=== PATIENT | male | born 1990 | race Hispanic/Latino ===

== ENCOUNTER 2018-03-31 14:25 | Emergency (ER) | payer BC, SELFPAY ==
--- NOTE | 2018-03-31 17:04 | EDPHYS ---
Physician Documentation [facility] Name: Barry Mercedes Age: 27 yrs Sex: Male : 1990 Arrival Date: 03/31/2018 Time: 14:26 Bed 10 Private MD: ED Physician Gregorio Thayer HPI: 03/31 16:59 This 27 yrs old Male presents to ER via Ambulatory with complaints of Sore snw Throat, Fever. 16:59 The patient presents with sore throat. The patient describes throat pain as raw, snw scratchy. Onset: The symptoms/episode began/occurred suddenly, 2.5 day(s) ago, and became worse and became persistent. Modifying factors: The symptoms are alleviated by nothing, the symptoms are aggravated by swallowing, Patient's oral intake status: good. Associated signs and symptoms: Pertinent positives: cough, fever, flu-like symptoms, malaise, nausea. The patient has experienced a previous episode. The patient has not recently seen a physician. Pt states he is unable to get a Rx until day. Historical: - Allergies: 15:21 No Known Allergies; ph - Home Meds: 15:21 None [Active]; ph - PMHx: 15:21 None; ph - PSHx: 15:21 Tonsillectomy; ph - Immunization history:: Adult Immunizations not up to date. - Social history:: Smoking status: Patient uses tobacco products, denies chronic smoking, but will smoke occasionally. - Ebola Screening: : No symptoms or risks identified at this time. ROS: 16:58 Eyes: Negative for injury, pain, redness, and discharge. snw 16:58 Neck: Negative for injury, pain, and swelling, Cardiovascular: Negative for chest pain, palpitations, and edema, Respiratory: Negative for shortness of breath, wheezing, and pleuritic chest pain, + cough Abdomen/GI: Negative for abdominal pain, nausea, vomiting, diarrhea, and constipation, Back: Negative for injury and pain, : Negative for injury, bleeding, discharge, and swelling, MS/Extremity: Negative for injury and deformity, Skin: Negative for injury, rash, and discoloration, Neuro: Negative for headache, weakness, numbness, tingling, and seizure, Psych: Negative for depression, anxiety, suicide ideation, homicidal ideation, and hallucinations. 16:58 Constitutional: Positive for body aches, fever, malaise, poor PO intake. 16:58 ENT: Positive for sore throat. Exam: 16:57 Constitutional: This is a well developed, well nourished patient who is awake, alert, snw and in no acute distress. Head/Face: Normocephalic, atraumatic. Eyes: Pupils equal round and reactive to light, extra-ocular motions intact. Lids and lashes normal. Conjunctiva and sclera are non-icteric and not injected. Cornea within normal limits. Periorbital areas with no swelling, redness, or edema. Neck: Trachea midline, no thyromegaly or masses palpated, and no cervical lymphadenopathy. Supple, full range of motion without nuchal rigidity, or vertebral point tenderness. No Meningismus. Chest/axilla: Normal chest wall appearance and motion. Nontender with no deformity. No lesions are appreciated. Cardiovascular: Regular rate and rhythm with a normal S1 and S2. No gallops, murmurs, or rubs. Normal PMI, no JVD. No pulse deficits. Respiratory: Lungs have equal breath sounds bilaterally, clear to auscultation and percussion. No rales, rhonchi or wheezes noted. No increased work of breathing, no retractions or nasal flaring. Abdomen/GI: Soft, non-tender, with normal bowel sounds. No distension or tympany. No guarding or rebound. No evidence of tenderness throughout. Back: No spinal tenderness. No costovertebral tenderness. Full range of motion. Skin: Warm, dry with normal turgor. Normal color with no rashes, no lesions, and no evidence of cellulitis. MS/ Extremity: Pulses equal, no cyanosis. Neurovascular intact. Full, normal range of motion. Neuro: Awake and alert, GCS 15, oriented to person, place, time, and situation. Cranial nerves II-XII grossly intact. Motor strength 5/5 in all extremities. Sensory grossly intact. Cerebellar exam normal. Normal gait. Psych: Awake, alert, with orientation to person, place and time. Behavior, mood, and affect are within normal limits. 16:57 ENT: External ear(s): are unremarkable, Ear canal(s): are normal, TM's: are normal, Nose: is normal, Mouth: is normal, Posterior pharynx: swelling, that is moderate, erythema, that is moderate, that is marked, Voice: is normal. Vital Signs: 15:21 BP 141 / 91; Pulse 80; Resp 18; Temp 98.5; Pulse Ox 96% on R/A; Weight 90.72 kg; Height ph 5 ft. 8 in. (172.72 cm); Pain 6/10; 16:32 BP 133 / 72; Pulse 83; Resp 18; Temp 97.5; Pulse Ox 95% on R/A; ph 17:38 BP 130 / 70; Pulse 80; Resp 16; Temp 98.6(TE); Pulse Ox 100% on R/A; dm5 17:53 BP 130 / 86; Pulse 79; Resp 18; Pulse Ox 99% on R/A; tl3 15:21 Body Mass Index 30.41 (90.72 kg, 172.72 cm) ph MDM: 16:46 Patient medically screened. snw 17:04 Data reviewed: vital signs, nurses notes. Data interpreted: Pulse oximetry: on room air snw is 95 %. Interpretation: acceptable. Counseling: I had a detailed discussion with the patient and/or guardian regarding: the historical points, exam findings, and any diagnostic results supporting the discharge/admit diagnosis, lab results, the need for outpatient follow up, to return to the emergency department if symptoms worsen or persist or if there are any questions or concerns that arise at home. Special discussion: Based on the history and exam findings, there is no indication for further emergent testing or inpatient evaluation. I discussed with the patient/guardian the need to see the primary care provider for further evaluation of the symptoms. 03/31 15:10 Order name: Strep; Complete Time: 16:29 snw 03/31 15:10 Order name: Flu; Complete Time: 16:29 snw Administered Medications: 17:25 Drug: Bicillin L-A 2.4 million units {Note: 1/2 in left gluteus 1/2 in right gluteus.} dm5 Route: IM; Site: left gluteus; 17:43 Follow up: Response: No adverse reaction tl3 17:25 Drug: Decadron - Dexamethasone 10 mg {Note: given PO per provider instructions.} Route: dm5 IVP; Site: Other; 17:44 Follow up: Response: No adverse reaction tl3 17:52 Drug: Motrin 800 mg Route: PO; tl3 17:52 Follow up: Response: Medication administered at discharge. tl3 Disposition: 03/31/18 17:03 Discharged to Home. Impression: Streptococcal pharyngitis, Fever, unspecified. - Condition is Stable. - Discharge Instructions: Fever, Adult, Sore Throat, Strep Throat, Rehydration, Adult. - Work release form, Medication Reconciliation Form, Thank You Letter, Antibiotic Education, Prescription Opioid Use form. - Follow up: Private Physician; When: 2 - 3 days; Reason: Recheck today's complaints, Continuance of care, Re-evaluation by your physician. Follow up: Emergency Department; When: As needed; Reason: Worsening of condition. Addendum: 04/07/2018 11:47 Co-signature as Attending Physician, Gregorio Thayer MD. g s Signatures: Dispatcher [employer] EDMS Jennifer Morocho RN RN dm5 Sophy Salcedo, VALVE REPAIRER RECLAMATION-C VALVE REPAIRER RECLAMATION-Csnw Tiana Chi, RN RN Gregorio Thayer MD MD Deyanira Rivas RN RN tl3 Corrections: (The following items were deleted from the chart) 03/31 17:55 17:03 03/31/2018 17:03 Discharged to Home. Impression: Streptococcal pharyngitis; tl3 Fever, unspecified. Condition is Stable. Forms are Medication Reconciliation Form, Thank You Letter, Antibiotic Education, Prescription Opioid Use. Follow up: Private Physician; When: 2 - 3 days; Reason: Recheck today's complaints, Continuance of care, Re-evaluation by your physician. Follow up: Emergency Department; When: As needed; Reason: Worsening of condition. snw
--- NOTE | 2018-03-31 17:04 | ER ---
Nurse's Notes [facility] Name: Barry Mercedes Age: 27 yrs Sex: Male : 1990 Arrival Date: 03/31/2018 Time: 14:26 Bed 10 Private MD: Diagnosis: Streptococcal pharyngitis;Fever, unspecified Presentation: 03/31 15:19 Presenting complaint: Patient states: Fatigue, sore throat, and nausea x 3 days. ph Transition of care: patient was not received from another setting of care. Onset of symptoms was March 31, 2018. Risk Assessment: Do you want to hurt yourself or someone else? Patient reports no desire to harm self or others. Initial Sepsis Screen: Does the patient meet any 2 criteria?. Care prior to arrival: None. 15:19 Method Of Arrival: Ambulatory ph 15:19 Acuity: PETE 4 ph 17:55 Initial Sepsis Screen: Does the patient have a suspected source of infection? No. tl3 Patient's initial sepsis screen is negative. Historical: - Allergies: 15:21 No Known Allergies; ph - Home Meds: 15:21 None [Active]; ph - PMHx: 15:21 None; ph - PSHx: 15:21 Tonsillectomy; ph - Immunization history:: Adult Immunizations not up to date. - Social history:: Smoking status: Patient uses tobacco products, denies chronic smoking, but will smoke occasionally. - Ebola Screening: : No symptoms or risks identified at this time. Screenin:54 Abuse screen: Denies threats or abuse. Nutritional screening: No deficits noted. tl3 Tuberculosis screening: No symptoms or risk factors identified. Fall Risk None identified. Assessment: 16:50 General: Appears in no apparent distress. uncomfortable, Behavior is calm, cooperative. dm5 Pain: Complains of pain in throat Pain currently is 8 out of 10 on a pain scale. Quality of pain is described as sharp, stinging. Neuro: Level of Consciousness is awake, alert, obeys commands, Oriented to person, place, time. Respiratory: Airway is patent Respiratory effort is even, unlabored, relaxed, Breath sounds are clear bilaterally. EENT: Throat is reddened. Derm: Skin is pink, warm \T\ dry. Vital Signs: 15:21 BP 141 / 91; Pulse 80; Resp 18; Temp 98.5; Pulse Ox 96% on R/A; Weight 90.72 kg; Height ph 5 ft. 8 in. (172.72 cm); Pain 6/10; 16:32 BP 133 / 72; Pulse 83; Resp 18; Temp 97.5; Pulse Ox 95% on R/A; ph 17:38 BP 130 / 70; Pulse 80; Resp 16; Temp 98.6(TE); Pulse Ox 100% on R/A; dm5 17:53 BP 130 / 86; Pulse 79; Resp 18; Pulse Ox 99% on R/A; tl3 15:21 Body Mass Index 30.41 (90.72 kg, 172.72 cm) ph ED Course: 14:26 Patient arrived in ED. as 15:21 Triage completed. ph 15:22 Arm band placed on Patient placed in waiting room, Patient notified of wait time. Labs ph ordered per protocol. 15:30 Flu and/or RSV swab sent to lab. Strep swab sent to lab. dh3 16:29 [facility] snw 16:30 Gregorio Thayer MD is Attending Physician. snw 17:54 No provider procedures requiring assistance completed. tl3 17:54 Patient did not have IV access during this emergency room visit. tl3 17:55 Patient has correct armband on for positive identification. tl3 Administered Medications: 17:25 Drug: Bicillin L-A 2.4 million units {Note: 1/2 in left gluteus 1/2 in right gluteus.} dm5 Route: IM; Site: left gluteus; 17:43 Follow up: Response: No adverse reaction tl3 17:25 Drug: Decadron - Dexamethasone 10 mg {Note: given PO per provider instructions.} Route: dm5 IVP; Site: Other; 17:44 Follow up: Response: No adverse reaction tl3 17:52 Drug: Motrin 800 mg Route: PO; tl3 17:52 Follow up: Response: Medication administered at discharge. tl3 Outcome: 17:03 Discharge ordered by . snw 17:53 Discharged to home ambulatory. tl3 17:53 Condition: stable 17:53 Discharge instructions given to patient, Instructed on discharge instructions, follow up and referral plans. medication usage, Demonstrated understanding of instructions, follow-up care, medications. 17:55 Patient left the ED. tl3 Signatures: Jennifer Morocho, JOSE RN dm5 Sophy Salcedo, MEDICAL PHYSICS TEACHER-C MEDICAL PHYSICS TEACHER-Csnw Melisa Florence Patricia, JOSE RN Monica Hardy 3 Deyanira Rivas RN RN tl3 Corrections: (The following items were deleted from the chart) 17:38 16:50 BP 130 / 70; Pulse 80bpm; Resp 16bpm; Pulse Ox 100% RA; Temp 98.6F Temporal; dm5 dm5
[2018-03-31] MEDS ORDERED: DEXAMETHASONE 10 MG/ML VIAL ONE (17:15)
[2018-03-31] MEDS ORDERED: PEN G BENZ LA 2.4 MU/4 ML SYRINGE IM ONE (17:16)
[2018-03-31] MEDS ORDERED: IBUPROFEN 400 MG TAB ONE (17:54)
[2018-03-31 19:22] VITALS: TEMP 98.6
[2018-03-31 19:23] VITALS: BP 130/86; O2SAT 99
== END 2018-03-31 17:55 | disposition home or self-care (01) ==
LOC: ER 14:25
DX: J02.0 Streptococcal pharyngitis (principal)
CPT/HCPCS: 87081; 87804; 96372; 96374; 99283; J0561; J1100

== ENCOUNTER 2018-07-14 13:31 | Emergency (ER) | payer SELFPAY ==
[2018-07-14] MEDS ORDERED: ACETAMINOPHEN 500 MG TAB ONE (14:12)
--- NOTE | 2018-07-14 14:58 | EDPHYS ---
Physician Documentation [facility] Name: Barry Mercedes Age: 28 yrs Sex: Male : 1990 Arrival Date: 07/14/2018 Time: 13:45 Bed Treatment Private MD: None, None ED Physician Ra Conn HPI: 07/14 14:54 This 28 yrs old Male presents to ER via Ambulatory with complaints of Fever, ma2 Rash. 14:54 Onset: The symptoms/episode began/occurred gradually, 3 day(s) ago. Associated signs ma2 and symptoms: Pertinent positives: cough, runny nose, sore throat, Pertinent negatives: altered mental status, backache, night sweats. Severity of symptoms: At their worst the symptoms were moderate in the emergency department the symptoms are unchanged. The patient has not experienced similar symptoms in the past. Historical: - Allergies: 13:57 No Known Allergies; aa5 - Home Meds: 13:57 None [Active]; aa5 - PMHx: 13:57 None; aa5 - PSHx: 13:57 Tonsillectomy; aa5 - Immunization history:: Flu vaccine is not up to date. - Social history:: Smoking status: Patient/guardian denies using tobacco, Patient/guardian denies using alcohol, street drugs, The patient lives with family. - Ebola Screening: : No symptoms or risks identified at this time. - Family history:: not pertinent. - Hospitalizations: : No recent hospitalization is reported. ROS: 14:54 Neck: Negative for injury, pain, and swelling, Cardiovascular: Negative for chest pain, ma2 palpitations, and edema, Respiratory: Negative for shortness of breath, cough, wheezing, and pleuritic chest pain, Abdomen/GI: Negative for abdominal pain, nausea, diarrhea, and constipation, Psych: Negative for depression, anxiety, suicide ideation, homicidal ideation, and hallucinations, Allergy/Immunology: Negative for hives, rash, and allergies, Endocrine: Negative for neck swelling, polydipsia, polyuria, polyphagia, and marked weight changes. 14:54 Constitutional: Positive for body aches, fatigue, fever, Negative for poor PO intake, weight loss. 14:54 ENT: Positive for rhinorrhea, sore throat, Negative for drainage from ear(s), Gum pain 14:54 All other systems are negative. Exam: 14:54 Constitutional: This is a well developed, well nourished patient who is awake, alert, ma2 and in no acute distress. Chest/axilla: Normal chest wall appearance and motion. Nontender with no deformity. No lesions are appreciated. Cardiovascular: Regular rate and rhythm with a normal S1 and S2. No gallops, murmurs, or rubs. Normal PMI, no JVD. No pulse deficits. Respiratory: Lungs have equal breath sounds bilaterally, clear to auscultation and percussion. No rales, rhonchi or wheezes noted. No increased work of breathing, no retractions or nasal flaring. Abdomen/GI: Soft, non-tender, with normal bowel sounds. No distension or tympany. No guarding or rebound. No evidence of tenderness throughout. Skin: Warm, dry with normal turgor. Normal color with no rashes, no lesions, and no evidence of cellulitis. MS/ Extremity: Pulses equal, no cyanosis. Neurovascular intact. Full, normal range of motion. Neuro: Awake and alert, GCS 15, oriented to person, place, time, and situation. Cranial nerves II-XII grossly intact. Motor strength 5/5 in all extremities. Sensory grossly intact. Cerebellar exam normal. Normal gait. 14:54 ENT: TM's: are normal, Nose: nasal drainage, that is minimal, that is moderate, and is seen coming from both nares, that is clear, Posterior pharynx: Tonsils: bilaterally enlarged, swelling, is not appreciated, exudate, that is mild, peritonsillar mass, is not appreciated. Vital Signs: 13:57 BP 124 / 84; Pulse 98; Resp 20 S; Temp 102.3(O); Pulse Ox 96% on R/A; Weight 90.72 kg aa5 (R); Height 5 ft. 9 in. (175.26 cm) (R); Pain 10/10; 13:57 Body Mass Index 29.53 (90.72 kg, 175.26 cm) aa5 MDM: 14:04 Patient medically screened. ma2 14:54 Differential diagnosis: viral Infection, URI, bronchitis. Data reviewed: vital signs, ma2 nurses notes. Counseling: I had a detailed discussion with the patient and/or guardian regarding: the historical points, exam findings, and any diagnostic results supporting the discharge/admit diagnosis, the presence of at least one elevated blood pressure reading (>120/80) during this emergency department visit, the need for outpatient follow up. Response to treatment: the patient's symptoms have markedly improved after treatment. Administered Medications: 14:02 Drug: Tylenol 1000 mg Route: PO; aa5 15:29 Follow up: Response: Pain is decreased aj 15:02 Drug: TORadol 60 mg Route: IM; Site: right gluteus; aj 15:30 Follow up: Response: No adverse reaction aj Disposition: 07/14/18 14:56 Discharged to Home. Impression: Acute laryngopharyngitis. - Condition is Stable. - Discharge Instructions: Pharyngitis. - Prescriptions for Augmentin 875- 125 mg Oral Tablet - take 1 tablet by ORAL route every 12 hours for 10 days; 20 tablet. Tylenol- Codeine #3 300-30 mg Oral Tablet - take 2 tablet by ORAL route every 6 hours As needed; 30 tablet. - Medication Reconciliation Form, Thank You Letter, Antibiotic Education, Prescription Opioid Use form. - Follow up: Private Physician; When: Tomorrow; Reason: Continuance of care. Signatures: Marley Byrne RN RN Emily Austin RN RN aa5 Ra Conn MD MD ma2 Corrections: (The following items were deleted from the chart) 15:30 14:56 07/14/2018 14:56 Discharged to Home. Impression: Acute laryngopharyngitis. aj Condition is Stable. Forms are Medication Reconciliation Form, Thank You Letter, Antibiotic Education, Prescription Opioid Use. Follow up: Private Physician; When: Tomorrow; Reason: Continuance of care. ma2
--- NOTE | 2018-07-14 14:58 | ER ---
Nurse's Notes [facility] Name: Barry Mercedes Age: 28 yrs Sex: Male : 1990 Arrival Date: 07/14/2018 Time: 13:45 Bed Treatment Private MD: None, None Diagnosis: Acute laryngopharyngitis Presentation: 07/14 13:55 Presenting complaint: Patient states: fever x 5 days ago. Pt reports rash to right aa5 hand, face, and right thigh. Pt also reports slight cough. Pt c/o body aches. Transition of care: patient was not received from another setting of care. Onset of symptoms was July 2018. Risk Assessment: Do you want to hurt yourself or someone else? Patient reports no desire to harm self or others. Care prior to arrival: None. 13:55 Method Of Arrival: Ambulatory aa5 13:55 Acuity: PETE 4 aa5 13:55 Initial Sepsis Screen: Does the patient meet any 2 criteria? Temp <36.0*C (96.8*F)) or aa5 > 38.3*C (100.9*F). Does the patient have a suspected source of infection? No. Patient's initial sepsis screen is negative. Historical: - Allergies: 13:57 No Known Allergies; aa5 - Home Meds: 13:57 None [Active]; aa5 - PMHx: 13:57 None; aa5 - PSHx: 13:57 Tonsillectomy; aa5 - Immunization history:: Flu vaccine is not up to date. - Social history:: Smoking status: Patient/guardian denies using tobacco, Patient/guardian denies using alcohol, street drugs, The patient lives with family. - Ebola Screening: : No symptoms or risks identified at this time. - Family history:: not pertinent. - Hospitalizations: : No recent hospitalization is reported. Screenin:00 Abuse screen: Denies threats or abuse. Nutritional screening: No deficits noted. aa5 Tuberculosis screening: No symptoms or risk factors identified. Fall Risk None identified. Assessment: 14:00 General: Appears uncomfortable, ill, Behavior is calm, cooperative. Pain: Complains of aa5 pain in whole body. Neuro: Level of Consciousness is awake, alert, obeys commands, Oriented to person, place, time, situation. Cardiovascular: Heart tones S1 S2 present Rhythm is regular. Respiratory: Reports cough Airway is patent Respiratory effort is even, unlabored, Respiratory pattern is regular, symmetrical, Breath sounds are clear bilaterally. GI: No signs and/or symptoms were reported involving the gastrointestinal system. : No signs and/or symptoms were reported regarding the genitourinary system. EENT: Throat is reddened has enlarged tonsils. Derm: Skin is dry, Skin is normal, Skin temperature is hot Rash noted that is red, on right cheek and left cheek, right hand, and right thigh. Musculoskeletal: Range of motion: intact in all extremities. Vital Signs: 13:57 BP 124 / 84; Pulse 98; Resp 20 S; Temp 102.3(O); Pulse Ox 96% on R/A; Weight 90.72 kg aa5 (R); Height 5 ft. 9 in. (175.26 cm) (R); Pain 10/10; 13:57 Body Mass Index 29.53 (90.72 kg, 175.26 cm) aa5 ED Course: 13:45 Patient arrived in ED. mr 13:46 None, None is Private Physician. mr 13:55 Arm band placed on. aa5 13:55 Patient has correct armband on for positive identification. aa5 13:57 Triage completed. aa5 14:02 Emily Carver, JOSE is Primary Nurse. aa5 14:04 Ra Conn MD is Attending Physician. ma2 15:27 No provider procedures requiring assistance completed. aa5 15:28 No provider procedures requiring assistance completed. Patient did not have IV access aj during this emergency room visit. Administered Medications: 14:02 Drug: Tylenol 1000 mg Route: PO; aa5 15:29 Follow up: Response: Pain is decreased aj 15:02 Drug: TORadol 60 mg Route: IM; Site: right gluteus; aj 15:30 Follow up: Response: No adverse reaction Outcome: 14:56 Discharge ordered by . ma2 15:28 Discharged to home ambulatory. aj 15:28 Condition: good 15:28 Discharge instructions given to patient, Instructed on discharge instructions, follow up and referral plans. Demonstrated understanding of instructions, follow-up care, medications, Prescriptions given X 2. 15:30 Patient left the ED. aj Signatures: Marley Byrne RN RN Aliya Tejeda Emily Vasques, RN RN aa5 Ra Conn MD MD ma2 Corrections: (The following items were deleted from the chart) 15:28 14:00 Derm: Skin is dry, Skin is normal, Skin temperature is hot [email or web address] aa5
[2018-07-14] MEDS ORDERED: KETOROLAC 30 MG/ML INJ ONE (15:10)
[2018-07-14 15:49] VITALS: BP 124/84; TEMP 102.3; O2SAT 96
== END 2018-07-14 15:30 | disposition home or self-care (01) ==
LOC: ER 13:31
DX: J06.0 Acute laryngopharyngitis (principal)
CPT/HCPCS: 96372; 99283

== ENCOUNTER 2020-04-13 12:23 | Emergency (ER) | payer SELFPAY ==
--- NOTE | 2020-04-13 17:42 | RAD REPORT ---
EXAM DESCRIPTION: RAD - Chest Single View - 04/13/2020 5:27 pm CLINICAL HISTORY: COUGH COMPARISON: None TECHNIQUE: AP portable chest image was obtained 04/13/2020 5:27 pm . FINDINGS: Lungs are clear. Heart and vasculature are normal. No measurable pleural effusion and no p neumothorax. No acute bony abnormality seen. No acute aortic findings suspected. IMPRESSION: No acute cardiopulmonary process.
[2020-04-13] MEDS ORDERED: NA CHLORIDE 0.9% 1,000 ML ONE (18:13)
[2020-04-13] MEDS ORDERED: CEFAZOLIN/SWI 1gm 1 GM/10 ML SYR ONE (18:13)
[2020-04-13 18:14] LABS: Absolute Lymphocytes (CBC) 1.9 K/uL (0.7-4.9); Basophils % 0.8 % (0-1.3); Hematocrit 38.3 % (39.6-49.0); Lymphocytes % 31.6 % (15.3-44.8); MPV 7.3 fL (7.6-11.3); RBC Red Blood Cell Count 4.74 M/uL (4.33-5.43)
[2020-04-13 18:42] LABS: ALT/SGPT 27 U/L (12-78); AST/SGOT 26 U/L (15-37); Albumin 3.5 g/dL (3.4-5.0); Alkaline Phosphatase 138 U/L (45-117); BUN Blood Urea Nitrogen 9 mg/dL (7-18); Bicarbonate 29 mmol/L (21-32); Bilirubin Total 0.3 mg/dL (0.2-1.0); Glucose Level 90 mg/dL (74-106); Potassium 3.8 mmol/L (3.5-5.1); Protein, Total 9.4 g/dL (6.4-8.2); Sodium Level 137 mmol/L (136-145)
--- NOTE | 2020-04-13 18:53 | ER ---
Nurse's Notes [facility] Name: Barry Mercedes Age: 29 yrs Sex: Male : 1990 Arrival Date: 04/13/2020 Time: 12:27 Bed 14 Private MD: Radha Melendez Diagnosis: Dermatitis, unspecified-pox virus;Fever, unspecified;Impetigo Presentation: 04/13 12:54 Chief complaint: Patient states: "Radha Melendez NP told me to come here to get aa5 antibiotics for MRSA". Sores to face and arms noted. Pt states "I've had this sores for about 3 weeks". 12:54 Coronavirus screen: Client denies travel out of the [place] in the last 14 days. At this aa5 time, the client does not indicate any symptoms associated with coronavirus-19. Ebola Screen: Patient negative for fever greater than or equal to 101.5 degrees Fahrenheit, and additional compatible Ebola Virus Disease symptoms. Initial Sepsis Screen: Does the patient meet any 2 criteria? No. Patient's initial sepsis screen is negative. Does the patient have a suspected source of infection? No. Patient's initial sepsis screen is negative. Risk Assessment: Do you want to hurt yourself or someone else? Patient reports no desire to harm self or others. Onset of symptoms was April 2020. 12:54 Acuity: PETE 3 aa5 12:54 Method Of Arrival: Ambulatory aa5 Historical: - Allergies: 13:00 No Known Allergies; aa5 - PMHx: 13:00 None; aa5 - PSHx: 13:00 Tonsillectomy; aa5 - Immunization history:: Adult Immunizations up to date. - Social history:: Smoking status: Patient reports the use of cigarette tobacco products, denies chronic smoking, but will smoke occasionally. - Family history:: not pertinent. Screenin:03 Abuse screen: Denies threats or abuse. Nutritional screening: No deficits noted. tw2 Tuberculosis screening: No symptoms or risk factors identified. Fall Risk None identified. Assessment: 16:53 Reassessment: provider at bedside at this time. tw2 16:55 General: Appears in no apparent distress. well groomed, Behavior is calm, cooperative, tw2 appropriate for age. Pain: Denies pain. Neuro: Level of Consciousness is awake, alert, obeys commands, Oriented to person, place, time, situation. Cardiovascular: Heart tones S1 S2 Patient's skin is warm and dry. Respiratory: Airway is patent Respiratory effort is even, unlabored, Respiratory pattern is regular, symmetrical, Breath sounds are clear bilaterally. GI: No signs and/or symptoms were reported involving the gastrointestinal system. Abdomen is flat, Bowel sounds present X 4 quads. : No signs and/or symptoms were reported regarding the genitourinary system. EENT: No signs and/or symptoms were reported regarding the EENT system. Derm: Rash noted that is red, raised, on all over body and face, not on soles of feet and palms of hands. Musculoskeletal: Circulation, motion, and sensation intact. Range of motion: intact in all extremities. 18:08 Reassessment: Patient appears in no apparent distress at this time. No changes from tw2 previously documented assessment. Patient and/or family updated on plan of care and expected duration. Pain level reassessed. Patient is alert, oriented x 3, equal unlabored respirations, skin warm/dry/pink. 19:00 Reassessment: Patient appears in no apparent distress at this time. Patient and/or jb4 family updated on plan of care and expected duration. Pain level reassessed. Patient is alert, oriented x 3, equal unlabored respirations, skin warm/dry/pink. 19:35 Reassessment: Provider at the bedside explaining need for transfer. jb4 20:14 Reassessment: Patient appears in no apparent distress at this time. No changes from jb4 previously documented assessment. Patient and/or family updated on plan of care and expected duration. Pain level reassessed. Vital Signs: 12:54 BP 119 / 96; Pulse 79; Resp 16 S; Temp 97.8(O); Pulse Ox 100% on R/A; Weight 88.45 kg aa5 (R); Height 5 ft. 8 in. (172.72 cm) (R); 18:08 BP 138 / 85; Pulse 88; Resp 17; Pulse Ox 99% on R/A; tw2 19:00 BP 119 / 82; Pulse 86; Resp 16; Pulse Ox 100% on R/A; jb4 12:54 Body Mass Index 29.65 (88.45 kg, 172.72 cm) aa5 ED Course: 12:27 Patient arrived in ED. mr 12:28 AlRadha is Private Physician. mr 12:57 Arm band placed on. aa5 12:59 Triage completed. aa5 16:36 Bed in low position. Call light in reach. Pulse ox on. NIBP on. tw2 16:40 Yomi Hamm MD is Attending Physician. [facility] 16:49 Nkechi Rios, RN is Primary Nurse. tw2 17:28 Chest Single View XRAY In Process Unspecified. EDMS 17:50 Initial lab(s) drawn, by [facility], sent to lab. First set of blood cultures drawn. Inserted tw2 saline lock: 20 gauge in right antecubital area, using aseptic technique. Blood collected. 18:05 Second set of blood cultures drawn by wy. tw2 18:07 Blood Culture Adult (2) Sent. tw2 19:00 Report given to JOSE Landeros. tw2 19:[address] guanaco LYNN report with [facility] physician regarding transfer. mt 19:51 admin approval given to [facility] by Curt Gutierres. mt 20:07 Called [facility] to request transportation, 15 min ETA given. mt 20:47 [facility] arrived for transport. mt 21:00 No provider procedures requiring assistance completed. Patient transferred, IV remains jb4 in place. 21:05 Primary Nurse role handed off by Nkechi Rios RN jb 21:05 Lewis Washington, RN is Primary Nurse. jb4 Administered Medications: 18:07 Drug: NS 0.9% 1000 ml Route: IV; Rate: 1 bolus; Site: right antecubital; tw2 19:00 Follow up: Response: No adverse reaction; IV Status: Completed infusion; IV Intake: jb4 1000ml 18:07 Drug: Ancef 1 grams Route: IVPB; Site: right antecubital; tw2 18:13 Follow up: Response: No adverse reaction; IV Status: Completed infusion; IV Intake: [id number] 19:58 Drug: Bactroban Ointment 2 % 1 application Route: Topical; Site: face; jb4 20:59 Follow up: Response: No adverse reaction jb4 20:58 Drug: Valium 5 mg Route: PO; jb4 20:58 Follow up: Response: Medication administered at discharge. jb4 Intake: 18:13 IV: 10ml; Total: 10ml. tw2 19:00 IV: 1000ml; Total: 1010ml. jb4 Outcome: 18:52 ER care complete, transfer ordered by MD. haq 21:00 Transferred by ground EMS [facility] to [facility], Transfer form jb4 completed. X-rays sent w/ patient. 21:00 Condition: stable 21:00 Discharge instructions given to patient, Instructed on the need for transfer, Demonstrated understanding of instructions. 21:05 Patient left the ED. jb4 Signatures: Dispatcher [employer] EDMS Yomi Hamm MD MD cha Rivera, Mary mr Carver, Emily, RN RN aa5 Nkechi Rios RN RN tw2 Lewis Washington, RN RN jb4 Roberta Hyatt ct
--- NOTE | 2020-04-13 18:53 | EDPHYS ---
Physician Documentation [facility] Name: Barry Mercedes Age: 29 yrs Sex: Male : 1990 Arrival Date: 04/13/2020 Time: 12:27 Bed 14 Private MD: Radha Melendez ED Physician Yomi Hamm HPI: 04/13 17:16 This 29 yrs old Male presents to ER via Ambulatory with complaints of IV severino Antibiotics. 17:16 The patient's rash thought to be caused by Dermatitis an unknown cause. The rash is severino located on the body diffusely. The rash can be described as crusted, diffuse, erythematous, raised. Onset: The symptoms/episode began/occurred 7 day(s) ago. Associated signs and symptoms: Pertinent positives: burning sensation, fever, Pain. Severity of symptoms: At their worst the symptoms were moderate in the emergency department the symptoms are worse. Treatment given at home: Benadryl, bactrim ds, cipro. The patient has not experienced similar symptoms in the past. Historical: - Allergies: 13:00 No Known Allergies; aa5 - PMHx: 13:00 None; aa5 - PSHx: 13:00 Tonsillectomy; aa5 - Immunization history:: Adult Immunizations up to date. - Social history:: Smoking status: Patient reports the use of cigarette tobacco products, denies chronic smoking, but will smoke occasionally. - Family history:: not pertinent. ROS: 17:16 Constitutional: Negative for fever, chills, and weight loss, Eyes: Negative for injury, severino pain, redness, and discharge, ENT: Negative for injury, pain, and discharge, Neck: Negative for injury, pain, and swelling, Cardiovascular: Negative for chest pain, palpitations, and edema, Respiratory: Negative for shortness of breath, cough, wheezing, and pleuritic chest pain, Abdomen/GI: Negative for abdominal pain, nausea, vomiting, diarrhea, and constipation, Back: Negative for injury and pain, : Negative for injury, bleeding, discharge, and swelling, MS/Extremity: Negative for injury and deformity, Neuro: Negative for headache, weakness, numbness, tingling, and seizure, Psych: Negative for depression, anxiety, suicide ideation, homicidal ideation, and hallucinations, Allergy/Immunology: Negative for hives, rash, and allergies, Endocrine: Negative for neck swelling, polydipsia, polyuria, polyphagia, and marked weight changes. 17:16 Skin: Positive for erythema, lesions, rash, swelling, diffusely. Exam: 17:16 Constitutional: This is a well developed, well nourished patient who is awake, alert, severino and in no acute distress. Cardiovascular: Regular rate and rhythm with a normal S1 and S2. No gallops, murmurs, or rubs. Normal PMI, no JVD. No pulse deficits. Respiratory: Lungs have equal breath sounds bilaterally, clear to auscultation and percussion. No rales, rhonchi or wheezes noted. No increased work of breathing, no retractions or nasal flaring. Neuro: Awake and alert, GCS 15, oriented to person, place, time, and situation. Cranial nerves II-XII grossly intact. Motor strength 5/5 in all extremities. Sensory grossly intact. Cerebellar exam normal. Normal gait. Psych: Awake, alert, with orientation to person, place and time. Behavior, mood, and affect are within normal limits. 17:16 Head/face: Noted is rash, consistent with pox , nodular diffuse skin lesions Vital Signs: 12:54 BP 119 / 96; Pulse 79; Resp 16 S; Temp 97.8(O); Pulse Ox 100% on R/A; Weight 88.45 kg aa5 (R); Height 5 ft. 8 in. (172.72 cm) (R); 18:08 BP 138 / 85; Pulse 88; Resp 17; Pulse Ox 99% on R/A; tw2 19:00 BP 119 / 82; Pulse 86; Resp 16; Pulse Ox 100% on R/A; jb4 12:54 Body Mass Index 29.65 (88.45 kg, 172.72 cm) aa5 MDM: 16:40 Patient medically screened. severion 17:16 Differential diagnosis: impetigo, varicella, allergic reaction. Data reviewed: vital severino signs, nurses notes. Data interpreted: clinical research monitor: rate is 79 beats/min, rhythm is regular, Pulse oximetry: on room air is 100 %. Test interpretation: by ED physician or midlevel provider: plain radiologic studies. Counseling: I had a detailed discussion with the patient and/or guardian regarding: the historical points, exam findings, and any diagnostic results supporting the discharge/admit diagnosis, lab results, radiology results, the need to transfer to another facility, for higher level of care, [facility] does not immediately have the required specialist. 04/13 17:08 Order name: CBC with Diff; Complete Time: 19:09 [facility] 04/13 17:08 Order name: Comprehensive Metabolic Panel; Complete Time: 19:09 [facility] 04/13 17:08 Order name: Blood Culture Adult (2) [facility] 04/13 17:08 Order name: Lactate; Complete Time: 18:45 [facility] 04/13 17:08 Order name: Rpr [facility] 04/13 17:08 Order name: Sed Rate; Complete Time: 19:09 [facility] 04/13 17:08 Order name: Chest Single View XRAY; Complete Time: 17:51 [facility] 04/13 17:08 Order name: CRP; Complete Time: 19:09 [facility] 04/13 18:11 Order name: HIV AG/AB SCREEN EDMS Administered Medications: 18:07 Drug: NS 0.9% 1000 ml Route: IV; Rate: 1 bolus; Site: right antecubital; tw2 19:00 Follow up: Response: No adverse reaction; IV Status: Completed infusion; IV Intake: jb4 1000ml 18:07 Drug: Ancef 1 grams Route: IVPB; Site: right antecubital; tw2 18:13 Follow up: Response: No adverse reaction; IV Status: Completed infusion; IV Intake: [id number] 19:58 Drug: Bactroban Ointment 2 % 1 application Route: Topical; Site: face; jb4 20:59 Follow up: Response: No adverse reaction jb4 20:58 Drug: Valium 5 mg Route: PO; jb4 20:58 Follow up: Response: Medication administered at discharge. jb4 Disposition: 04/13/20 18:52 Transfer ordered to [facility]. Diagnosis are Dermatitis, unspecified - pox virus, Fever, unspecified, Impetigo. - Reason for transfer: Higher level of care. - Accepting physician is dr gina andres. - Condition is Stable. - Problem is an ongoing problem. - Symptoms have worsened. Signatures: Dispatcher [employer] EDMS Yomi Hamm MD MD cha Mickail, Joel, PA PA jmm Nieto, Roman, MD MD rn Calderon, Audri, RN RN aa5 Nkechi Rios RN RN tw2 Lewis Washington, RN RN jb4 Corrections: (The following items were deleted from the chart) 18:10 17:09 Miscellaneous Lab Test+[id number].LAB.BRZ ordered. EDMS EDMS 21:05 18:52 04/13/2020 18:52 Transfer ordered to [facility]. Diagnosis is Dermatitis, jb4 unspecified - pox virus; Fever, unspecified; Impetigo. Reason for transfer: Higher level of care. Accepting physician is dr gina andres. Condition is Stable. Problem is an ongoing problem. Symptoms have worsened. severino
[2020-04-13] MEDS ORDERED: MUPIROCIN 2% OINT 22GM TUBE TOP ONE (19:49)
[2020-04-13] MEDS ORDERED: DIAZEPAM 5 MG TABLET ONE (21:09)
[2020-04-13 21:21] VITALS: TEMP 97.8
[2020-04-13 21:23] VITALS: BP 119/82; O2SAT 100
[2020-04-14 03:02] LABS: RPR (Rapid Plasma Reagin) REACTIVE (NON-REACT)
[2020-04-16 21:48] LABS: HIV AG/AB 4TH GEN Reactive (Non-reactive)
== END 2020-04-13 21:05 | disposition short-term general hospital (02) ==
LOC: ER 12:23
DX: L01.00 Impetigo, unspecified (principal); B08.8 Other specified viral infections characterized by skin and mucous membrane lesions; L30.9 Dermatitis, unspecified; F17.210 Nicotine dependence, cigarettes, uncomplicated
CPT/HCPCS: 36415; 71045; 80053; 83605; 85025; 85652; 86140; 86592; 86593; 87040; 87389; 96361; 96374; 99285; J0690; J7030

== ENCOUNTER 2022-07-17 13:04 | Emergency (ER) | payer OTHER ==
--- OUTSIDE RECORDS SUMMARY | 2022-07-17 13:11 | XMS REPORT | Continuity of Care Document ---
:1990 Author Organization [facility] t Address [address] [place] [address] Care Team Providers Name Role Phone Radha Melendez Primary Care Physician ROSALINA ZEPEDA Attending Clinician Unavailable MERY WALTON Attending Clinician Unavailable JOSEFINA WILDE Attending Clinician Unavailable Danilo Ventura MA Attending Clinician Unavailable Brandin Grajeda RN Attending Clinician Unavailable TOO WALL Attending Clinician Unavailable Too Wall MD Attending Clinician Dillan Palacio MD Attending Clinician Josefina Wilde MD Attending Clinician Awilda Aguilar MA Attending Clinician Unavailable Mery Walton MD Attending Clinician [facility] Attending Clinician Unavailable Annie Ortega LVN Attending Clinician Unavailable Lorrie Glover RN Attending Clinician Unavailable Tony Rivero MD Attending Clinician TONY RIVERO Attending Clinician Unavailable ROBERTA COBURN Attending Clinician Unavailable Roberta Coburn MD Attending Clinician Visit, [facility] Id Nurse Attending Clinician Unavailable KEVIN SCHERER Attending Clinician Unavailable Kevin Scherer MD Attending Clinician Gela Moreno MD Attending Clinician GELA MORENO Attending Clinician Unavailable Vaccine, Gal [facility] Attending Clinician Unavailable Visits, [facility] Id Care Mgmt Attending Clinician Unavailable Cintia Trotter LVN Attending Clinician Unavailable FRANCIA MCRAE Attending Clinician Unavailable SHANTA WESTFALL Attending Clinician Unavailable Alex GARCIA, Lorrie Stanford Attending Clinician Unavailable Doctor Unassigned, [place] Attending Clinician Unavailable Visit, [facility] Dermatology Nurse Attending Clinician Unavailable Darrel Leon MD Attending Clinician DARREL LEON Attending Clinician Unavailable Elba Gillespie Attending Clinician Eitan Perez MD Attending Clinician Narciso Cole Attending Clinician ROSALINA ZEPEDA Admitting Clinician Unavailable Payers Payer Name Policy Type Policy Number Effective Date Expiration Date S ource Problems Condition Condition Condition Status Onset Resolution Last Treating Co mments Source Name Details Category Date Date Treatment Clinician Date 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 Social History Social Habit Start Date Stop Date Quantity Comments Source History of Cigarette Smoker Universi ty of tobacco use [facility] [place] [facility] Exposure to 2022-04-20 2022-04-30 Not sure University SARS-CoV-2 00:00:00 08:48:00 [facility] (event) [place] Alcohol intake 2022-04-30 2022-04-30 Current drinker Unive rsity of 00:00:00 00:00:00 of alcohol [facility] (finding) [place] Tobacco use and 2020-04-21 2020-04-21 Smokeless tobacco Un iversity of exposure 00:00:00 00:00:00 non-user [facility] [place] [facility] Sex Assigned At [birth year] Universit y of 00:00:00 00:00:00 [facility] [place] [facility] Smoking Status Start Date Stop Date Source Occasional tobacco smoker 2020-04-21 00:00:00 Un iversity of [facility] [place] [facility] Medications Ordered Filled Start Stop Current Ordering Indication Dosage Frequency Signature Comments Components Source Medication Medication Date Date Medication? Clinician (SIG) Name Name buPROPion 2021-0 Yes [id number] 300mg Take 1 U nivers XL 300 mg 9-14 tablet by ity o f 24 hr 00:00: mouth in [place] tablet 00 the Medical morning. Branch ALPRAZolam 2021-0 Yes [id number] .5mg Take 1 U nivers 0.5 mg 9-14 tablet by ity of tablet 00:00: mouth in [place] 00 the Medical morning. Branch buPROPion 2-0 Yes [id number] 300mg Take 1 U nivers XL 300 mg 9-14 tablet by ity o f 24 hr 00:00: mouth in [place] tablet 00 the Medical morning. Branch ALPRAZolam 2021-0 Yes [id number] .5mg Take 1 U nivers 0.5 mg 9-14 tablet by ity of tablet 00:00: mouth in [place] the Medical morning. Branch buPROPion 2-0 Yes [id number] 300mg Take 1 U nivers XL 300 mg 9-14 tablet by ity o f 24 hr 00:00: mouth in [place] tablet 00 the Medical morning. Branch ALPRAZolam 2021-0 Yes [id number] .5mg Take 1 U nivers 0.5 mg 9-14 tablet by ity of tablet 00:00: mouth in [place] the Medical morning. Branch buPROPion 2021-0 Yes [id number] 300mg Take 1 U nivers XL 300 mg 9-14 tablet by ity o f 24 hr 00:00: mouth in [place] tablet 00 the Medical morning. Branch ALPRAZolam 2-0 Yes [id number] .5mg Take 1 U nivers 0.5 mg 9-14 tablet by ity of tablet 00:00: mouth in [place] the Medical morning. Branch buPROPion 2-0 Yes [id number] 300mg Take 1 U nivers XL 300 mg 9-14 tablet by ity o f 24 hr 00:00: mouth in [place] tablet 00 the Medical morning. Branch ALPRAZolam 2-0 Yes [id number] .5mg Take 1 U nivers 0.5 mg 9-14 tablet by ity of tablet 00:00: mouth in [place] 00 the Medical morning. Branch buPROPion 2-0 Yes [id number] 300mg Take 1 U nivers XL 300 mg 9-14 tablet by ity o f 24 hr 00:00: mouth in [place] tablet 00 the Medical morning. Branch ALPRAZolam 2-0 Yes [id number] .5mg Take 1 U nivers 0.5 mg 9-14 tablet by ity of tablet 00:00: mouth in [place] 00 the Medical morning. Branch buPROPion 2022-0 Yes [id number] 300mg Take 1 U nivers XL 300 mg 9-14 tablet by ity o f 24 hr 00:00: mouth in [place] tablet 00 the Medical morning. Branch ALPRAZolam 2-0 Yes [id number] .5mg Take 1 U nivers 0.5 mg 9-14 tablet by ity of tablet 00:00: mouth in [place] 00 the Medical morning. Branch buPROPion 2-0 Yes [id number] 300mg Take 1 U nivers XL 300 mg 9-14 tablet by ity o f 24 hr 00:00: mouth in [place] tablet 00 the Medical morning. Branch buPROPion 2022-0 Yes [id number] 300mg Take 1 U nivers XL 300 mg 9-14 tablet by ity o f 24 hr 00:00: mouth in [place] tablet 00 the Medical morning. Branch buPROPion 2022-0 Yes [id number] 300mg Take 1 U nivers XL 300 mg 9-14 tablet by ity o f 24 hr 00:00: mouth in [place] tablet 00 the Medical morning. Branch buPROPion 2-0 Yes [id number] 300mg Take 1 U nivers XL 300 mg 9-14 tablet by ity o f 24 hr 00:00: mouth in [place] tablet 00 the Medical morning. Branch buPROPion 2022-0 Yes [id number] 300mg Take 1 U nivers XL 300 mg 9-14 tablet by ity o f 24 hr 00:00: mouth in [place] tablet 00 the Medical morning. Branch buPROPion 2022-0 Yes [id number] 300mg Take 1 U nivers XL 300 mg 9-14 tablet by ity o f 24 hr 00:00: mouth in [place] tablet 00 the Medical morning. Branch buPROPion 2022-0 Yes [id number] 300mg Take 1 U nivers XL 300 mg 9-14 tablet by ity o f 24 hr 00:00: mouth in [place] tablet 00 the Medical morning. Branch buPROPion 2022-0 Yes [id number] 300mg Take 1 U nivers XL 300 mg 9-14 tablet by ity o f 24 hr 00:00: mouth in [place] tablet 00 the Medical morning. Branch buPROPion 2021-0 Yes [id number] 300mg Take 1 U nivers XL 300 mg 9-14 tablet by ity o f 24 hr 00:00: mouth in [place] tablet 00 the Medical morning. Branch buPROPion 2021-0 Yes [id number] 300mg Take 1 U nivers XL 300 mg 9-14 tablet by ity o f 24 hr 00:00: mouth in [place] tablet 00 the Medical morning. Branch buPROPion 0 Yes [id number] 300mg Take 1 U nivers XL 300 mg 9-14 tablet by ity o f 24 hr 00:00: mouth in [place] tablet 00 the Medical morning. Branch buPROPion 2021-0 Yes [id number] 300mg Take 1 U nivers XL 300 mg 9-14 tablet by ity o f 24 hr 00:00: mouth in [place] tablet 00 the Medical morning. Branch ALPRAZolam 2021-2021- No [id number] .5mg Take 1 Univers 0.5 mg 9-14 10-27 tablet by ity of tablet 00:00: 00:00 mouth in [place] 00 :00 the Medical morning. Branch ALPRAZolam 2021-2021- No [id number] .5mg Take 1 Univers 0.5 mg 9-14 10-27 tablet by ity of tablet 00:00: 00:00 mouth in [place] 00 :00 the Medical morning. Branch bictegrav-e Yes [id number] 1{tbl} Take 1 Univers mtricit-ten 9-13 tablet by ity of ofov ala 00:00: mouth [place] (BIKTARVY) 00 daily. Medical 50-200-25 Branch mg tablet bictegrav-e 2021- Yes [id number] 1{tbl} Take 1 Univers mtricit-ten 9-13 tablet by ity of ofov ala 00:00: mouth [place] (BIKTARVY) 00 daily. Medical 50-200-25 Branch mg tablet bictegrav-e 2021-0 Yes [id number] 1{tbl} Take 1 Univers mtricit-ten 9-13 tablet by ity of ofov ala 00:00: mouth [place] (BIKTARVY) 00 daily. Medical 50-200-25 Branch mg tablet bictegrav-e Yes [id number] 1{tbl} Take 1 Univers mtricit-ten 9-13 tablet by ity of ofov ala 00:00: mouth [place] (BIKTARVY) 00 daily. Medical 50-200-25 Branch mg tablet bictegrav-e 0 Yes [id number] 1{tbl} Take 1 Univers mtricit-ten 9-13 tablet by ity of ofov ala 00:00: mouth [place] (BIKTARVY) 00 daily. Medical 50-200-25 Branch mg tablet bictegrav-e Yes [id number] 1{tbl} Take 1 Univers mtricit-ten 9-13 tablet by ity of ofov ala 00:00: mouth [place] (BIKTARVY) 00 daily. Medical 50-200-25 Branch mg tablet bictegrav-e Yes [id number] 1{tbl} Take 1 Univers mtricit-ten 9-13 tablet by ity of ofov ala 00:00: mouth [place] (BIKTARVY) 00 daily. Medical 50-200-25 Branch mg tablet bictegrav-e Yes [id number] 1{tbl} Take 1 Univers mtricit-ten 9-13 tablet by ity of ofov ala 00:00: mouth [place] (BIKTARVY) 00 daily. Medical 50-200-25 Branch mg tablet bictegrav-e Yes [id number] 1{tbl} Take 1 Univers mtricit-ten 9-13 tablet by ity of ofov ala 00:00: mouth [place] (BIKTARVY) 00 daily. Medical 50-200-25 Branch mg tablet bictegrav-e 2021-0 Yes [id number] 1{tbl} Take 1 Univers mtricit-ten 9-13 tablet by ity of ofov ala 00:00: mouth [place] (BIKTARVY) 00 daily. Medical 50-200-25 Branch mg tablet bictegrav-e 0 Yes [id number] 1{tbl} Take 1 Univers mtricit-ten 9-13 tablet by ity of ofov ala 00:00: mouth [place] (BIKTARVY) 00 daily. Medical 50-200-25 Branch mg tablet bictegrav-e Yes [id number] 1{tbl} Take 1 Univers mtricit-ten 9-13 tablet by ity of ofov ala 00:00: mouth [place] (BIKTARVY) 00 daily. Medical 50-200-25 Branch mg tablet bictegrav-e Yes [id number] 1{tbl} Take 1 Univers mtricit-ten 9-13 tablet by ity of ofov ala 00:00: mouth [place] (BIKTARVY) 00 daily. Medical 50-200-25 Branch mg tablet bictegrav-e Yes [id number] 1{tbl} Take 1 Univers mtricit-ten 9-13 tablet by ity of ofov ala 00:00: mouth [place] (BIKTARVY) 00 daily. Medical 50-200-25 Branch mg tablet bictegrav-e Yes [id number] 1{tbl} Take 1 Univers mtricit-ten 9-13 tablet by ity of ofov ala 00:00: mouth [place] (BIKTARVY) 00 daily. Medical 50-200-25 Branch mg tablet bictegrav-e Yes [id number] 1{tbl} Take 1 Univers mtricit-ten 9-13 tablet by ity of ofov ala 00:00: mouth [place] (BIKTARVY) 00 daily. Medical 50-200-25 Branch mg tablet bictegrav-e Yes [id number] 1{tbl} Take 1 Univers mtricit-ten 9-13 tablet by ity of ofov ala 00:00: mouth [place] (BIKTARVY) 00 daily. Medical 50-200-25 Branch mg tablet bictegrav-e Yes [id number] 1{tbl} Take 1 Univers mtricit-ten 9-13 tablet by ity of ofov ala 00:00: mouth [place] (BIKTARVY) 00 daily. Medical 50-200-25 Branch mg tablet bictegrav-e 0 Yes [id number] 1{tbl} Take 1 Univers mtricit-ten 9-13 tablet by ity of ofov ala 00:00: mouth [place] (BIKTARVY) 00 daily. Medical 50-200-25 Branch mg tablet bictegrav-e Yes [id number] 1{tbl} Take 1 Univers mtricit-ten 9-13 tablet by ity of ofov ala 00:00: mouth [place] (BIKTARVY) 00 daily. Medical 50-200-25 Branch mg tablet BUPROPION Yes [id number] TAKE ONE Univers XL 300 mg 8-09 TABLET BY ity o f 24 hr 00:00: MOUTH [place] tablet 00 DAILY Medical Branch BUPROPION Yes [id number] TAKE ONE Univers XL 300 mg 8-09 TABLET BY ity o f 24 hr 00:00: MOUTH [place] tablet 00 DAILY Medical Branch BUPROPION 2021- No [id number] TAKE ONE Univers XL 300 mg 8-09 09-14 TABLET BY ity of 24 hr 00:00: 00:00 MOUTH [place] tablet 00 :00 DAILY Medical Branch ALPRAZolam Yes [id number] .5mg Take 1 U nivers 0.5 mg 6-29 tablet by ity of tablet 00:00: mouth [place] 00 daily. Medical Branch ALPRAZolam Yes [id number] .5mg Take 1 U nivers 0.5 mg 6-29 tablet by ity of tablet 00:00: mouth [place] 00 daily. Medical Branch ALPRAZolam Yes [id number] .5mg Take 1 U nivers 0.5 mg 6-29 tablet by ity of tablet 00:00: mouth [place] 00 daily. [facility] ALPRAZolam 2021- No [id number] .5mg Take 1 Univers 0.5 mg 6-29 09-14 tablet by ity of tablet 00:00: 00:00 mouth [place] 00 :00 daily. Medical Branch buPROPion 2021- No [id number] 300mg Take 1 Univers XL 300 mg 5-11 08-09 tablet by ity of 24 hr 00:00: 00:00 mouth [place] tablet 00 :00 daily. Medical Branch imiquimod 5 2020-06 Yes [id number] 1{packe Apply 1 Univers % cream 2-22 t} Each to ity of 00:00: area(s) [place] 00 every Medical Saturday, Branch Saturday and Saturday. imiquimod 5 2020-06 Yes [id number] 1{packe Apply 1 Univers % cream 2-22 t} Each to ity of 00:00: [facility] [place] 00 every Medical Saturday, Branch Saturday and Saturday. imiquimod 2020-06 Yes [id number] 1{packe Apply 1 Univers % cream 2-22 t} Each to ity of 00:00: [facility] [place] 00 every Medical Saturday, Branch Saturday and Saturday. imiquimod 2020-06 Yes [id number] 1{packe Apply 1 Univers % cream 2-22 t} Each to ity of 00:00: [facility] [place] 00 every Medical Saturday, Branch Saturday and Saturday. imiquimod 2020-06 Yes [id number] 1{packe Apply 1 Univers % cream 2-22 t} Each to ity of 00:00: [facility] 00 every Medical Saturday, Branch Saturday and Saturday. imiquimod 2020-06 Yes [id number] 1{packe Apply 1 Univers % cream 2-22 t} Each to ity of 00:00: [facility] 00 every Medical Saturday, Branch Saturday and Saturday. imiquimod 2020-06 Yes [id number] 1{packe Apply 1 Univers % cream 2-22 t} Each to ity of 00:00: [facility] 00 every Medical Saturday, Branch Saturday and Saturday. imiquimod 2020-06 Yes [id number] 1{packe Apply 1 Univers % cream 2-22 t} Each to ity of 00:00: [facility] [place] 00 every Medical Saturday, Branch Saturday and Saturday. imiquimod 2020-06 Yes [id number] 1{packe Apply 1 Univers % cream 2-22 t} Each to ity of 00:00: [facility] 00 every Medical Saturday, Branch Saturday and Saturday. imiquimod 2020-06 Yes [id number] 1{packe Apply 1 Univers % cream 2-22 t} Each to ity of 00:00: [facility] 00 every Medical Saturday, Branch Saturday and Saturday. imiquimod 5 2020-06 Yes [id number] 1{packe Apply 1 Univers % cream 2-22 t} Each to ity of 00:00: [facility] [place] 00 every Medical Saturday, Branch Saturday and Saturday. imiquimod 2020-06 Yes [id number] 1{packe Apply 1 Univers % cream 2-22 t} Each to ity of 00:00: [facility] [place] 00 every Medical Saturday, Branch Saturday and Saturday. imiquimod 2020-06 Yes [id number] 1{packe Apply 1 Univers % cream 2-22 t} Each to ity of 00:00: [facility] [place] 00 every Medical Saturday, Branch Saturday and Saturday. imiquimod 2020-06 Yes [id number] 1{packe Apply 1 Univers % cream 2-22 t} Each to ity of 00:00: [facility] 00 every Medical Saturday, Branch Saturday and Saturday. imiquimod 2020-06 Yes [id number] 1{packe Apply 1 Univers % cream 2-22 t} Each to ity of 00:00: [facility] 00 every Medical Saturday, Branch Saturday and Saturday. imiquimod 2020-06 Yes [id number] 1{packe Apply 1 Univers % cream 2-22 t} Each to ity of 00:00: [facility] 00 every Medical Saturday, Branch Saturday and Saturday. imiquimod 2020-06 Yes [id number] 1{packe Apply 1 Univers % cream 2-22 t} Each to ity of 00:00: [facility] 00 every Medical Saturday, Branch Saturday and Saturday. imiquimod 2020-06 Yes [id number] 1{packe Apply 1 Univers % cream 2-22 t} Each to ity of 00:00: [facility] [place] 00 every Medical Saturday, Branch Saturday and Saturday. imiquimod 2020-06 Yes [id number] 1{packe Apply 1 Univers % cream 2-22 t} Each to ity of 00:00: [facility] [place] 00 every Medical Saturday, Branch Saturday and Saturday. imiquimod 5 2020-06 Yes [id number] 1{packe Apply 1 Univers % cream 2-22 t} Each to ity of 00:00: area(s) [place] 00 every Medical Saturday, Branch Saturday and Saturday. imiquimod 5 2020-06 Yes [id number] 1{packe Apply 1 Univers % cream 2-22 t} Each to ity of 00:00: area(s) [place] 00 every Medical Saturday, Branch Saturday and Saturday. imiquimod 5 2020-06 Yes [id number] 1{packe Apply 1 Univers % cream 2-22 t} Each to ity of 00:00: area(s) [place] 00 every Medical Saturday, Branch Saturday and Saturday. Lidocaine 5 2020-06 Yes [id number] Apply to Univers % cream 2-21 area(s) ity of 00:00: daily. [place] Medical Branch silver 2020-06 Yes [id number] Apply to Un mikki sulfADIAZIN 2-21 area(s) ity o f E 00:00: daily. [place] (SILVADENE) Medical 1 % cream Branch Lidocaine 5 2020-06 Yes [id number] Apply to Univers % cream 2-21 area(s) ity of 00:00: daily. [place] Medical Branch silver 2020-06 Yes [id number] Apply to Un mikki sulfADIAZIN 2-21 area(s) ity o f E 00:00: daily. [place] (SILVADENE) 00 Medical 1 % cream Branch Lidocaine 5 2020-06 Yes [id number] Apply to Univers % cream 2-21 area(s) ity of 00:00: daily. [place] Medical Branch silver 2020-06 Yes [id number] Apply to Un mikki sulfADIAZIN 2-21 area(s) ity o f E 00:00: daily. [place] (SILVADENE) 00 Medical 1 % cream Branch Lidocaine 5 2020-06 Yes [id number] Apply to Univers % cream 2-21 area(s) ity of 00:00: daily. [place] Medical Branch silver 2020-06 Yes [id number] Apply to Un mikki sulfADIAZIN 2-21 area(s) ity o f E 00:00: daily. [place] (SILVADENE) 00 Medical 1 % cream Branch Lidocaine 5 2020-06 Yes [id number] Apply to Univers % cream 2-21 area(s) ity of 00:00: daily. [place] Medical Branch silver 2020-06 Yes [id number] Apply to Un mikki sulfADIAZIN 2-21 area(s) ity o f E 00:00: daily. [place] (SILVADENE) Medical 1 % cream Branch Lidocaine 5 2020-06 Yes [id number] Apply to Univers % cream 2-21 area(s) ity of 00:00: daily. [place] Medical Branch silver 2020-06 Yes [id number] Apply to Un mikki sulfADIAZIN 2-21 area(s) ity o f E 00:00: daily. [place] (SILVADENE) Medical 1 % cream Branch Lidocaine 5 2020-06 Yes [id number] Apply to Univers % cream 2-21 area(s) ity of 00:00: daily. [place] Medical Branch silver 2020-06 Yes [id number] Apply to Un mikki sulfADIAZIN 2-21 area(s) ity o f E 00:00: daily. [place] (SILVADENE) Medical 1 % cream Branch Lidocaine 5 2020-06 Yes [id number] Apply to Univers % cream 2-21 area(s) ity of 00:00: daily. [place] Medical Branch silver 2020-06 Yes [id number] Apply to Un mikki sulfADIAZIN 2-21 area(s) ity o f E 00:00: daily. [place] (SILVADENE) Medical 1 % cream Branch Lidocaine 5 2020-06 Yes [id number] Apply to Univers % cream 2-21 area(s) ity of 00:00: daily. [place] Medical Branch silver 2020-06 Yes [id number] Apply to Un mikki sulfADIAZIN 2-21 area(s) ity o f E 00:00: daily. [place] (SILVADENE) Medical 1 % cream Branch Lidocaine 5 2020-06 Yes [id number] Apply to Univers % cream 2-21 area(s) ity of 00:00: daily. [place] Medical Branch silver 2020-06 Yes [id number] Apply to Un mikki sulfADIAZIN 2-21 area(s) ity o f E 00:00: daily. [place] (SILVADENE) Medical 1 % cream Branch Lidocaine 5 2020-06 Yes [id number] Apply to Univers % cream 2-21 area(s) ity of 00:00: daily. [place] Medical Branch silver 2020-06 Yes [id number] Apply to Un mikki sulfADIAZIN 2-21 area(s) ity o f E 00:00: daily. [place] (SILVADENE) Medical 1 % cream Branch Lidocaine 5 2020-06 Yes [id number] Apply to Univers % cream 2-21 area(s) ity of 00:00: daily. [place] Medical Branch silver 2020-06 Yes [id number] Apply to Un mikki sulfADIAZIN 2-21 area(s) ity o f E 00:00: daily. [place] (SILVADENE) Medical 1 % cream Branch Lidocaine 5 2020-06 Yes [id number] Apply to Univers % cream 2-21 area(s) ity of 00:00: daily. [place] Medical Branch silver 2020-06 Yes [id number] Apply to Un mikki sulfADIAZIN 2-21 area(s) ity o f E 00:00: daily. [place] (SILVADENE) Medical 1 % cream Branch Lidocaine 5 2020-06 Yes [id number] Apply to Univers % cream 2-21 area(s) ity of 00:00: daily. [place] Medical Branch silver 2020-06 Yes [id number] Apply to Un mikki sulfADIAZIN 2-21 area(s) ity o f E 00:00: daily. [place] (SILVADENE) Medical 1 % cream Branch Lidocaine 5 2020-06 Yes [id number] Apply to Univers % cream 2-21 area(s) ity of 00:00: daily. [place] Medical Branch silver 2020-06 Yes [id number] Apply to Un mikki sulfADIAZIN 2-21 area(s) ity o f E 00:00: daily. [place] (SILVADENE) Medical 1 % cream Branch Lidocaine 5 2020-06 Yes [id number] Apply to Univers % cream 2-21 area(s) ity of 00:00: daily. [place] Medical Branch silver 2020-06 Yes [id number] Apply to Un mikki sulfADIAZIN 2-21 area(s) ity o f E 00:00: daily. [place] (SILVADENE) Medical 1 % cream Branch Lidocaine 5 2020-06 Yes [id number] Apply to Univers % cream 2-21 area(s) ity of 00:00: daily. [place] Medical Branch silver 2020-06 Yes [id number] Apply to Un mikki sulfADIAZIN 2-21 area(s) ity o f E 00:00: daily. [place] (SILVADENE) Medical 1 % cream Branch Lidocaine 5 2020-06 Yes [id number] Apply to Univers % cream 2-21 area(s) ity of 00:00: daily. [place] Medical Branch silver 2020-06 Yes [id number] Apply to Un mikki sulfADIAZIN 2-21 area(s) ity o f E 00:00: daily. [place] (SILVADENE) Medical 1 % cream Branch Lidocaine 5 2020-06 Yes [id number] Apply to Univers % cream 2-21 area(s) ity of 00:00: daily. [place] Medical Branch silver 2020-06 Yes [id number] Apply to Un mikki sulfADIAZIN 2-21 area(s) ity o f E 00:00: daily. [place] (SILVADENE) Medical 1 % cream Branch Lidocaine 5 2020-06 Yes [id number] Apply to Univers % cream 2-21 area(s) ity of 00:00: daily. [place] Medical Branch silver 2020-06 Yes [id number] Apply to Un mikki sulfADIAZIN 2-21 area(s) ity o f E 00:00: daily. [place] (SILVADENE) Medical 1 % cream Branch Lidocaine 5 2020-06 Yes [id number] Apply to Univers % cream 2-21 area(s) ity of 00:00: daily. [place] Medical Branch silver 2020-06 Yes [id number] Apply to Un mikki sulfADIAZIN 2-21 area(s) ity o f E 00:00: daily. [place] (SILVADENE) Medical 1 % cream Branch Lidocaine 5 2020-06 Yes [id number] Apply to Univers % cream 2-21 area(s) ity of 00:00: daily. [place] Medical Branch silver 2020-06 Yes [id number] Apply to Un mikki sulfADIAZIN 2-21 area(s) ity o f E 00:00: daily. [place] (SILVADENE) Medical 1 % cream Branch bictegrav-e Yes [id number] 1{tbl} Take 1 Univers mtricit-ten 8-26 tablet by ity of ofov ala 00:00: mouth [place] (BIKTARVY) 00 daily. Medical 50-200-25 Branch mg tablet bictegrav-e Yes [id number] 1{tbl} Take 1 Univers mtricit-ten 8-26 tablet by ity of ofov ala 00:00: mouth [place] (BIKTARVY) 00 daily. Medical 50-200-25 Branch mg tablet bictegrav-e 2021- No [id number] 1{tbl} Take 1 Univers mtricit-ten 8-26 09-13 tablet by it y of ofov ala 00:00: 00:00 mouth [place] (BIKTARVY) 00 :00 daily. 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) Influenza Virus 2022-03-08 Completed Universit y of Vaccine Quad IM, 00:00:00 [place] Me dical Preserv and ABX Branch Free 6 MO-64 YRS SARS-COV-2 COVID-19 2022-03-08 Completed Unive rsity of [facility]OL[facility]-SUCROSE 00:00:00 [place] Medica l VACCINE 12 YRS+, Branch BIVALENT 0.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, IM, (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) Influenza Virus 2022-03-08 Completed Universit y of Vaccine [facility], 00:00:00 [place] [facility] Preserv and ABX Branch Free 6 MO-64 YRS SARS-COV-2 COVID-19 2022-03-08 Completed Unive rsity of PAOLA-SUCROSE 00:00:00 [place] [facility] VACCINE [facility] Y[facility]+, Branch BIVALENT 0.3ML, IM, (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) Influenza Virus 2022-03-08 Completed [facility], 00:00:00 [place] [facility] Preserv and ABX Branch Free 6 MO-64 YRS SARS-COV-2 COVID-19 2022-03-08 Completed Unive rsity of [facility]OL[facility]-SUCROSE 00:00:00 [place] [facility] VACCINE 12 YRS+, Branch BIVALENT 0.3ML, IM, (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) Influenza Virus 2022-03-08 Completed [facility]it [facility] of [facility] IM, 00:00:00 [place] [facility] Preserv and ABX Branch Free 6 MO-64 YRS SARS-COV-2 COVID-19 2022-03-08 Completed Unive rsity of [place]OLA-SUCROSE 00:00:00 [place] [facility] VACCINE 12 YRS+, Branch BIVALENT 0.3ML, IM, (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) Influenza Virus 2022-03-08 Completed [facility]it [facility]ine [facility] IM, 00:00:00 [place] [facility] Preserv and ABX Branch Free 6 MO-64 YRS SARS-COV-2 COVID-19 2022-03-08 Completed Unive rsity of PAOLA-SUCROSE 00:00:00 [place] [facility] VACCINE 12 YRS+, Branch BIVALENT 0.3ML, IM, (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) Influenza Virus 2022-03-08 Completed [facility] IM, 00:00:00 [place] [facility] Preserv and ABX Branch Free 6 MO-64 YRS SARS-COV-2 COVID-19 2022-03-08 Completed Unive rsity of [facility]OLA-SUCROSE 00:00:00 [place] [facility] VACCINE 12 YRS+, Branch BIVALENT 0.3ML, IM, (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) Influenza Virus 2022-03-08 Completed [facility]it [facility] of Vaccine [facility] IM, 00:00:00 [place] [facility] Preserv and ABX Branch Free 6 MO-64 YRS SARS-COV-2 COVID-19 2022-03-08 Completed Unive rsity of [place]OLA-SUCROSE 00:00:00 [place] [facility] VACCINE 12 YRS+, Branch BIVALENT 0.3ML, IM, (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) Influenza Virus 2022-03-08 Completed [facility] of [facility]ine [facility] IM, 00:00:00 [place] [facility] Preserv and ABX Branch Free 6 MO-64 YRS SARS-COV-2 COVID-19 2022-03-08 Completed Unive rsity of [place]OL[place]-SUCROSE 00:00:00 [place] [facility] VACCINE 12 YRS+, Branch BIVALENT 0.3ML, IM, (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) Influenza Virus 2022-03-08 Completed [facility]it [facility] of [facility]ine [facility] IM, 00:00:00 [place] [facility] Preserv and ABX Branch Free 6 MO-64 YRS SARS-COV-2 COVID-19 2022-03-08 Completed Unive rsity of PAOLA-SUCROSE 00:00:00 [place] [facility] VACCINE 12 YRS+, Branch BIVALENT 0.3ML, IM, (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) Influenza Virus 2022-03-08 Completed [facility] of Vaccine [facility] IM, 00:00:00 [place] [facility] Preserv and ABX Branch Free 6 MO-64 YRS SARS-COV-2 COVID-19 2022-03-08 Completed Unive rsity of PAOLA-SUCROSE 00:00:00 [place] [facility] VACCINE 12 YRS+, Branch BIVALENT 0.3ML, IM, (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) Influenza Virus 2022-03-08 Completed [facility]it [facility] of Vaccine [facility] IM, 00:00:00 [place] [facility] Preserv and ABX Branch Free 6 MO-64 YRS SARS-COV-2 COVID-19 2022-03-08 Completed Unive rsity of PAOLA-SUCROSE 00:00:00 [place] [facility] VACCINE 12 YRS+, Branch BIVALENT 0.3ML, IM, (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) Influenza Virus 2022-03-08 Completed [facility]it y of Vaccine [facility] IM, 00:00:00 [place] [facility] Preserv and ABX Branch Free 6 MO-64 YRS SARS-COV-2 COVID-19 2022-03-08 Completed Unive rsity of PAOLA-SUCROSE 00:00:00 [place] [facility] VACCINE 12 YRS+, Branch BIVALENT 0.3ML, IM, (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 Hepatitis A Adult 2021-08-03 Completed Univers ity of 00:00:00 [facility] 2021-08-03 Completed University of 00:00:00 [facility] [place] [facility] Hepatitis A Adult 2021-08-03 Completed Univers ity of 00:00:00 [facility] 2021-08-03 Completed University of 00:00:00 [facility] [place] [facility] Hepatitis A Adult 2021-08-03 Completed Univers ity of 00:00:00 [place] [id number] 2021-08-03 Completed University of 00:00:00 [facility] [place] [facility] Hepatitis A Adult 2021-08-03 Completed Univers ity of 00:00:00 [facility] 2021-08-03 Completed University of 00:00:00 [facility] [place] [facility] Hepatitis A Adult 2021-08-03 Completed Univers ity of 00:00:00 [facility] 2021-08-03 Completed University of 00:00:00 [facility] [place] [facility] Hepatitis A Adult 2021-08-03 Completed Univers ity of 00:00:00 [facility] 2021-08-03 Completed University of 00:00:00 [facility] [place] [facility] Hepatitis A Adult 2021-08-03 Completed Univers ity of 00:00:00 [facility] 2021-08-03 Completed University of 00:00:00 [facility] [place] [facility] Hepatitis A Adult 2021-08-03 Completed Univers ity of 00:00:00 [facility] 2021-08-03 Completed University of 00:00:00 [facility] [place] [facility] Hepatitis A Adult 2021-08-03 Completed Univers ity of 00:00:00 [facility] 2021-08-03 Completed University of 00:00:00 [facility] [place] [facility] Hepatitis A Adult 2021-08-03 Completed Univers ity of 00:00:00 [facility] 2021-08-03 Completed University of 00:00:00 [facility] [place] [facility] Hepatitis A Adult 2021-08-03 Completed Univers ity of 00:00:00 [facility] 2021-08-03 Completed University of 00:00:00 [facility] [place] [facility] Hepatitis A Adult 2021-08-03 Completed Univers ity of 00:00:00 [facility] 2021-08-03 Completed University of 00:00:00 [facility] [place] [facility] Hepatitis A Adult 2021-08-03 Completed Univers ity of 00:00:00 [facility] 2021-08-03 Completed University of 00:00:00 [facility] [place] [facility] Hepatitis A Adult 2021-08-03 Completed Univers ity of 00:00:00 [facility] 2021-08-03 Completed University of 00:00:00 [facility] [place] [facility] Hepatitis A Adult 2021-08-03 Completed Univers ity of 00:00:00 [facility] 2021-08-03 Completed University of 00:00:00 [facility] [place] [facility] Hepatitis A Adult 2021-08-03 Completed Univers ity of 00:00:00 [facility] 2021-08-03 Completed University of 00:00:00 [facility] [place] [facility] Hepatitis A Adult 2021-08-03 Completed Univers ity of 00:00:00 [facility] 2021-08-03 Completed University of 00:00:00 [facility] [place] [facility] Hepatitis A Adult 2021-08-03 Completed Univers ity of 00:00:00 [facility] 2021-08-03 Completed University of 00:00:00 [facility] [place] [facility] Hepatitis A Adult 2021-08-03 Completed Univers ity of 00:00:00 [facility] 2021-08-03 Completed University of 00:00:00 [facility] [place] [facility] Hepatitis A Adult 2021-08-03 Completed Univers ity of 00:00:00 [facility] 2021-08-03 Completed University of 00:00:00 [facility] [place] [facility] Hepatitis A Adult 2021-08-03 Completed Univers ity of 00:00:00 [facility] 2021-08-03 Completed University of 00:00:00 [facility] [place] [facility] Hepatitis A Adult 2021-08-03 Completed Univers ity of 00:00:00 [facility] [place] [facility] Influenza Virus 2021-05-04 Completed Universit y of Vaccine Quad IM, 00:00:00 [facility] dical Preserv and ABX Branch Free 6 MO-64 YRS SARS-COV-2 COVID-19 2021-05-04 Completed Unive rsity of PFIZER VACCINE 00:00:00 [facility] Branch Influenza Virus 2021-05-04 Completed Universit y of Vaccine Quad IM, 00:00:00 [facility] dical Preserv and ABX Branch Free 6 MO-64 YRS SARS-COV-2 COVID-19 2021-05-04 Completed Unive rsity of PFIZER VACCINE 00:00:00 [facility] Branch Influenza Virus 2021-05-04 Completed Universit y of Vaccine Quad IM, 00:00:00 [facility] dical Preserv and ABX Branch Free 6 MO-64 YRS SARS-COV-2 COVID-19 2021-05-04 Completed Unive rsity of PFIZER VACCINE 00:00:00 [facility] Branch Influenza Virus 2021-05-04 Completed Universit y of Vaccine Quad IM, 00:00:00 [facility] dical Preserv and ABX Branch Free 6 MO-64 YRS SARS-COV-2 COVID-19 2021-05-04 Completed Unive rsity of PFIZER VACCINE 00:00:00 [facility] Branch Influenza Virus 2021-05-04 Completed Universit y of Vaccine Quad IM, 00:00:00 [facility] dical Preserv and ABX Branch Free 6 MO-64 YRS SARS-COV-2 COVID-19 2021-05-04 Completed Unive rsity of PFIZER VACCINE 00:00:00 [facility] [place] [facility] Influenza Virus 2021-05-04 Completed Universit y of Vaccine Quad IM, 00:00:00 [facility] dical Preserv and ABX Branch Free 6 MO-64 YRS SARS-COV-2 COVID-19 2021-05-04 Completed Unive rsity of PFIZER VACCINE 00:00:00 [facility] [place] [facility] Influenza Virus 2021-05-04 Completed Universit y of Vaccine Quad IM, 00:00:00 [facility] dical Preserv and ABX Branch Free 6 MO-64 YRS SARS-COV-2 COVID-19 2021-05-04 Completed Unive rsity of PFIZER VACCINE 00:00:00 [facility] Branch Influenza Virus 2021-05-04 Completed Universit y of Vaccine Quad IM, 00:00:00 [facility] dical Preserv and ABX Branch Free 6 MO-64 YRS SARS-COV-2 COVID-19 2021-05-04 Completed Unive rsity of PFIZER VACCINE 00:00:00 [facility] [place] [facility] Influenza Virus 2021-05-04 Completed [facility]it y of Vaccine Quad IM, 00:00:00 [place] [facility] Preserv and ABX Branch Free 6 MO-64 YRS SARS-COV-2 COVID-19 2021-05-04 Completed Unive rsity of PFIZER VACCINE 00:00:00 [facility] [place] [facility] Influenza Virus 2021-05-04 Completed Universit y of Vaccine Quad IM, 00:00:00 [place] [facility] Preserv and ABX Branch Free 6 MO-64 YRS SARS-COV-2 COVID-19 2021-05-04 Completed Unive rsity of PFIZER VACCINE 00:00:00 [facility] [place] [facility] Influenza Virus 2021-05-04 Completed Universit y of Vaccine Quad IM, 00:00:00 [facility] dical Preserv and ABX Branch Free 6 MO-64 YRS SARS-COV-2 COVID-19 2021-05-04 Completed Unive rsity of PFIZER VACCINE 00:00:00 [facility] [place] [facility] Influenza Virus 2021-05-04 Completed Universit y of Vaccine Quad IM, 00:00:00 [facility] dical Preserv and ABX Branch Free 6 MO-64 YRS SARS-COV-2 COVID-19 2021-05-04 Completed Unive rsity of PFIZER VACCINE 00:00:00 [facility] [place] [facility] Influenza Virus 2021-05-04 Completed Universit y of Vaccine Quad IM, 00:00:00 [facility] dical Preserv and ABX Branch Free 6 MO-64 YRS SARS-COV-2 COVID-19 2021-05-04 Completed Unive rsity of PFIZER VACCINE 00:00:00 [facility] [place] [facility] Influenza Virus 2021-05-04 Completed Universit y of Vaccine Quad IM, 00:00:00 [facility] dical Preserv and ABX Branch Free 6 MO-64 YRS SARS-COV-2 COVID-19 2021-05-04 Completed Unive rsity of PFIZER VACCINE 00:00:00 [facility] [place] [facility] Influenza Virus 2021-05-04 Completed Universit y of Vaccine Quad IM, 00:00:00 [facility] dical Preserv and ABX Branch Free 6 MO-64 YRS SARS-COV-2 COVID-19 2021-05-04 Completed Unive rsity of PFIZER VACCINE 00:00:00 [facility] [place] [facility] Influenza Virus 2021-05-04 Completed Universit y of Vaccine Quad IM, 00:00:00 [place] [facility] Preserv and ABX Branch Free 6 MO-64 YRS SARS-COV-2 COVID-19 2021-05-04 Completed Unive rsity of PFIZER VACCINE 00:00:00 [facility] [place] [facility] Influenza Virus 2021-05-04 Completed Universit y of Vaccine Quad IM, 00:00:00 [place] [facility] Preserv and ABX Branch Free 6 MO-64 YRS SARS-COV-2 COVID-19 2021-05-04 Completed Unive rsity of PFIZER VACCINE 00:00:00 [facility] [place] [facility] Influenza Virus 2021-05-04 Completed Universit y of Vaccine Quad IM, 00:00:00 [place] [facility] Preserv and ABX Branch Free 6 MO-64 YRS SARS-COV-2 COVID-19 2021-05-04 Completed Unive rsity of PFIZER VACCINE 00:00:00 [facility] [place] [facility] Influenza Virus 2021-05-04 Completed Universit y of Vaccine Quad IM, 00:00:00 [place] [facility] Preserv and ABX Branch Free 6 MO-64 YRS SARS-COV-2 COVID-19 2021-05-04 Completed Unive rsity of PFIZER VACCINE 00:00:00 [facility] [place] [facility] Influenza Virus 2021-05-04 Completed Universit y of Vaccine Quad IM, 00:00:00 [place] [facility] Preserv and ABX Branch Free 6 MO-64 YRS SARS-COV-2 COVID-19 2021-05-04 Completed Unive rsity of PFIZER VACCINE 00:00:00 [facility] [place] [facility] Influenza Virus 2021-05-04 Completed Universit y of Vaccine Quad IM, 00:00:00 [place] [facility] Preserv and ABX Branch Free 6 MO-64 YRS SARS-COV-2 COVID-19 2021-05-04 Completed Unive rsity of PFIZER VACCINE 00:00:00 [facility] [place] [facility] Influenza Virus 2021-05-04 Completed Universit y of Vaccine Quad IM, 00:00:00 [place] [facility] Preserv and ABX Branch Free 6 MO-64 YRS SARS-COV-2 COVID-19 2021-05-04 Completed Unive rsity of PFIZER VACCINE 00:00:00 [facility] Branch HPV9 2021-03-28 Completed University of 00:00:00 [facility] [place] [facility] HPV9 2021-03-28 Completed University of 00:00:00 [facility] HPV9 2021-03-28 Completed University of 00:00:00 [facility] HPV9 2021-03-28 Completed University of 00:00:00 [facility] HPV9 2021-03-28 Completed University of 00:00:00 [facility] HPV9 2021-03-28 Completed University of 00:00:00 [facility] HPV9 2021-03-28 Completed University of 00:00:00 [facility] HPV9 2021-03-28 Completed University of 00:00:00 [facility] HPV9 2021-03-28 Completed University of 00:00:00 [facility] HPV9 2021-03-28 Completed University of 00:00:00 [facility] HPV9 2021-03-28 Completed University of 00:00:00 [facility] HPV9 2021-03-28 Completed University of 00:00:00 [facility] HPV9 2021-03-28 Completed University of 00:00:00 [facility] HPV9 2021-03-28 Completed University of 00:00:00 [facility] HPV9 2021-03-28 Completed University of 00:00:00 [facility] HPV9 2021-03-28 Completed University of 00:00:00 [facility] HPV9 2021-03-28 Completed University of 00:00:00 [facility] HPV9 2021-03-28 Completed University of 00:00:00 [facility] HPV9 2021-03-28 Completed University of 00:00:00 [facility] HPV9 2021-03-28 Completed University of 00:00:00 [facility] HPV9 2021-03-28 Completed University of 00:00:00 [facility] HPV9 2021-03-28 Completed University of 00:00:00 [facility] Pneumococcal 2021-01-26 Completed University o f Polysaccharide, 00:00:00 [place] [facility] PPSV23 (PNEUMOVAX) Branch HPV9 2021-01-26 Completed University of 00:00:00 [facility] Pneumococcal 2021-01-26 Completed University o f Polysaccharide, 00:00:00 [place] [facility] PPSV23 (PNEUMOVAX) [facility] 2021-01-26 Completed University of 00:00:00 [facility] Pneumococcal 2021-01-26 Completed University o f Polysaccharide, 00:00:00 [place] [facility] PPSV23 (PNEUMOVAX) Branch [facility] 2021-01-26 Completed University of 00:00:00 [facility] Pneumococcal 2021-01-26 Completed University o f Polysaccharide, 00:00:00 [place] [facility] PPSV23 (PNEUMOVAX) Branch [facility] 2021-01-26 Completed University of 00:00:00 [facility] Pneumococcal 2021-01-26 Completed University o f Polysaccharide, 00:00:00 [place] [facility] PPSV23 (PNEUMOVAX) Branch [facility] 2021-01-26 Completed University of 00:00:00 [facility] Pneumococcal 2021-01-26 Completed University o f Polysaccharide, 00:00:00 [place] [facility] PPSV23 (PNEUMOVAX) Branch [facility] 2021-01-26 Completed University of 00:00:00 [facility] Pneumococcal 2021-01-26 Completed University o f Polysaccharide, 00:00:00 [place] [facility] PPSV23 (PNEUMOVAX) Branch [facility] 2021-01-26 Completed University of 00:00:00 [facility] Pneumococcal 2021-01-26 Completed University o f Polysaccharide, 00:00:00 [place] [facility] PPSV23 (PNEUMOVAX) Branch [facility] 2021-01-26 Completed University of 00:00:00 [facility] Pneumococcal 2021-01-26 Completed University o f Polysaccharide, 00:00:00 [place] [facility] PPSV23 (PNEUMOVAX) Branch [facility] 2021-01-26 Completed University of 00:00:00 [facility] Pneumococcal 2021-01-26 Completed University o f Polysaccharide, 00:00:00 [place] [facility] PPSV23 (PNEUMOVAX) Branch [facility] 2021-01-26 Completed University of 00:00:00 [facility] Pneumococcal 2021-01-26 Completed University o f Polysaccharide, 00:00:00 [place] [facility] PPSV23 (PNEUMOVAX) Branch [facility] 2021-01-26 Completed University of 00:00:00 [facility] Pneumococcal 2021-01-26 Completed University o f Polysaccharide, 00:00:00 [place] [facility] PPSV23 (PNEUMOVAX) Branch [facility] 2021-01-26 Completed University of 00:00:00 [facility] Pneumococcal 2021-01-26 Completed University o f Polysaccharide, 00:00:00 [place] [facility] PPSV23 (PNEUMOVAX) Branch [facility] 2021-01-26 Completed University of 00:00:00 [facility] Pneumococcal 2021-01-26 Completed University o f Polysaccharide, 00:00:00 [place] [facility] PPSV23 (PNEUMOVAX) Branch [facility] 2021-01-26 Completed University of 00:00:00 [facility] Pneumococcal 2021-01-26 Completed University o f Polysaccharide, 00:00:00 [place] [facility] PPSV23 (PNEUMOVAX) Branch [facility] 2021-01-26 Completed University of 00:00:00 [facility] Pneumococcal 2021-01-26 Completed University o f Polysaccharide, 00:00:00 [place] [facility] PPSV23 (PNEUMOVAX) Branch [facility] 2021-01-26 Completed University of 00:00:00 [facility] Pneumococcal 2021-01-26 Completed University o f Polysaccharide, 00:00:00 [place] [facility] PPSV23 (PNEUMOVAX) Branch [facility] 2021-01-26 Completed University of 00:00:00 [facility] Pneumococcal 2021-01-26 Completed University o f Polysaccharide, 00:00:00 [place] [facility] PPSV23 (PNEUMOVAX) Branch [facility] 2021-01-26 Completed University of 00:00:00 [facility] Pneumococcal 2021-01-26 Completed University o f Polysaccharide, 00:00:00 [place] [facility] PPSV23 (PNEUMOVAX) Branch [facility] 2021-01-26 Completed University of 00:00:00 [facility] Pneumococcal 2021-01-26 Completed University o f Polysaccharide, 00:00:00 [place] [facility] PPSV23 (PNEUMOVAX) Branch [facility] 2021-01-26 Completed University of 00:00:00 [facility] Pneumococcal 2021-01-26 Completed University o f Polysaccharide, 00:00:00 [place] [facility] PPSV23 (PNEUMOVAX) Branch [facility] 2021-01-26 Completed University of 00:00:00 [facility] [place] [facility] Pneumococcal 2021-01-26 Completed University o f Polysaccharide, 00:00:00 [place] [facility] PPSV23 (PNEUMOVAX) Branch HPV9 2021-01-26 Completed University of 00:00:00 [place] [facility] SARS-COV-2 COVID-19 2020-10-03 Completed Unive rsity of MODERNA 12+ YRS 00:00:00 [place] [facility] VACCINE Branch SARS-COV-2 COVID-19 2020-10-03 Completed Unive rsity of MODERNA 12+ YRS 00:00:00 [place] [facility] VACCINE Branch SARS-COV-2 COVID-19 2020-10-03 Completed Unive rsity of MODERNA 12+ YRS 00:00:00 [place] [facility] VACCINE Branch SARS-COV-2 COVID-19 2020-10-03 Completed Unive rsity of MODERNA 12+ YRS 00:00:00 [place] [facility] VACCINE Branch SARS-COV-2 COVID-19 2020-10-03 Completed Unive rsity of MODERNA 12+ YRS 00:00:00 [place] [facility] VACCINE Branch SARS-COV-2 COVID-19 2020-10-03 Completed Unive rsity of MODERNA 12+ YRS 00:00:00 [place] [facility] VACCINE Branch SARS-COV-2 COVID-19 2020-10-03 Completed Unive rsity of MODERNA 12+ YRS 00:00:00 [place] [facility] VACCINE Branch SARS-COV-2 COVID-19 2020-10-03 Completed Unive rsity of MODERNA 12+ YRS 00:00:00 [place] [facility] VACCINE Branch SARS-COV-2 COVID-19 2020-10-03 Completed Unive rsity of MODERNA 12+ YRS 00:00:00 [place] [facility] VACCINE [facility] SARS-COV-2 COVID-19 2020-10-03 Completed Unive rsity of MODERNA 12+ YRS 00:00:00 [place] [facility] VACCINE [facility] SARS-COV-2 COVID-19 2020-10-03 Completed Unive rsity of MODERNA 12+ YRS 00:00:00 [place] [facility] VACCINE [facility] SARS-COV-2 COVID-19 2020-10-03 Completed Unive rsity of MODERNA 12+ YRS 00:00:00 [place] [facility] VACCINE [facility] SARS-COV-2 COVID-19 2020-10-03 Completed Unive rsity of MODERNA 12+ YRS 00:00:00 [place] [facility] VACCINE [facility] SARS-COV-2 COVID-19 2020-10-03 Completed Unive rsity of MODERNA 12+ YRS 00:00:00 [place] [facility] VACCINE [facility] SARS-COV-2 COVID-19 2020-10-03 Completed Unive rsity of MODERNA 12+ YRS 00:00:00 [place] [facility] VACCINE [facility] SARS-COV-2 COVID-19 2020-10-03 Completed Unive rsity of MODERNA 12+ YRS 00:00:00 [place] [facility] VACCINE [facility] SARS-COV-2 COVID-19 2020-10-03 Completed Unive rsity of MODERNA 12+ YRS 00:00:00 [place] [facility] VACCINE [facility] SARS-COV-2 COVID-19 2020-10-03 Completed Unive rsity of MODERNA 12+ YRS 00:00:00 [place] [facility] VACCINE [facility] SARS-COV-2 COVID-19 2020-10-03 Completed Unive rsity of MODERNA 12+ YRS 00:00:00 [place] [facility] VACCINE [facility] SARS-COV-2 COVID-19 2020-10-03 Completed Unive rsity of MODERNA 12+ YRS 00:00:00 [place] [facility] VACCINE [facility] SARS-COV-2 COVID-19 2020-10-03 Completed Unive rsity of MODERNA 12+ YRS 00:00:00 [place] [facility] VACCINE [facility] SARS-COV-2 COVID-19 2020-10-03 Completed Unive rsity of MODERNA 12+ YRS 00:00:00 [place] [facility] VACCINE [facility] SARS-COV-2 COVID-19 2020-09-05 Completed Unive rsity of MODERNA 12+ YRS 00:00:00 [place] [facility] V[facility] SARS-COV-2 COVID-19 2020-09-05 Completed Unive rsity of MODERNA 12+ YRS 00:00:00 [place] [facility] SARS-COV-2 COVID-19 2020-09-05 Completed Unive rsity of MODERNA 12+ YRS 00:00:00 [place] [facility] SARS-COV-2 COVID-19 2020-09-05 Completed Unive rsity of MODERNA 12+ YRS 00:00:00 [place] [facility] V[facility] SARS-COV-2 COVID-19 2020-09-05 Completed Unive rsity of MODERNA 12+ YRS 00:00:00 [place] [facility] V[facility] SARS-COV-2 COVID-19 2020-09-05 Completed Unive rsity of MODERNA 12+ YRS 00:00:00 [place] [facility] VACCINE [facility] SARS-COV-2 COVID-19 2020-09-05 Completed Unive rsity of MODERNA 12+ YRS 00:00:00 [place] [facility] V[facility] SARS-COV-2 COVID-19 2020-09-05 Completed Unive rsity of MODERNA 12+ YRS 00:00:00 [place] [facility] VACCINE [facility] SARS-COV-2 COVID-19 2020-09-05 Completed Unive rsity of MODERNA 12+ YRS 00:00:00 [place] [facility] VACC[facility] SARS-COV-2 COVID-19 2020-09-05 Completed Unive rsity of MODERNA 12+ YRS 00:00:00 [place] [facility] VACCINE [facility] SARS-COV-2 COVID-19 2020-09-05 Completed Unive rsity of MODERNA 12+ YRS 00:00:00 [place] [facility] VACCINE [facility] SARS-COV-2 COVID-19 2020-09-05 Completed Unive rsity of MODERNA 12+ YRS 00:00:00 [place] [facility] VACCINE [facility] SARS-COV-2 COVID-19 2020-09-05 Completed Unive rsity of MODERNA 12+ YRS 00:00:00 [place] [facility] VACCINE [facility] SARS-COV-2 COVID-19 2020-09-05 Completed Unive rsity of MODERNA 12+ YRS 00:00:00 [place] [facility] VACCINE [facility] SARS-COV-2 COVID-19 2020-09-05 Completed Unive rsity of MODERNA 12+ YRS 00:00:00 [place] [facility] VACCINE [facility] SARS-COV-2 COVID-19 2020-09-05 Completed Unive rsity of MODERNA 12+ YRS 00:00:00 [place] [facility] VACCINE [facility] SARS-COV-2 COVID-19 2020-09-05 Completed Unive rsity of MODERNA 12+ YRS 00:00:00 [place] [facility] VACCINE [facility] SARS-COV-2 COVID-19 2020-09-05 Completed Unive rsity of MODERNA 12+ YRS 00:00:00 [place] [facility] SARS-COV-2 COVID-19 2020-09-05 Completed Unive rsity of MODERNA 12+ YRS 00:00:00 [facility] ical VACCINE Branch SARS-COV-2 COVID-19 2020-09-05 Completed Unive rsity of MODERNA 12+ YRS 00:00:00 [facility] ical VACCINE Branch SARS-COV-2 COVID-19 2020-09-05 Completed Unive rsity of MODERNA 12+ YRS 00:00:00 [facility]-COV-2 COVID-19 2020-09-05 Completed Unive rsity of MODERNA 12+ YRS 00:00:00 [facility] VACCINE Branch HEPLISAV HEP B, 2020-09-01 Completed Universit y of ADULT 2 DOSE, IM 00:00:00 [facility] TDAP 2020-09-01 Completed University of 00:00:00 [facility] HEPLISAV HEP B, 2020-09-01 Completed Universit y of ADULT 2 DOSE, IM 00:00:00 [facility] TDAP 2020-09-01 Completed University of 00:00:00 [facility] HEPLISAV HEP B, 2020-09-01 Completed Universit y of ADULT 2 DOSE, IM 00:00:00 [facility] TDAP 2020-09-01 Completed University of 00:00:00 [facility] HEPLISAV HEP B, 2020-09-01 Completed Universit y of ADULT 2 DOSE, IM 00:00:00 [facility] TDAP 2020-09-01 Completed University of 00:00:00 [facility] HEPLISAV HEP B, 2020-09-01 Completed Universit y of ADULT 2 DOSE, IM 00:00:00 [facility] TDAP 2020-09-01 Completed University of 00:00:00 [facility] HEPLISAV HEP B, 2020-09-01 Completed Universit y of ADULT 2 DOSE, IM 00:00:00 [facility] TDAP 2020-09-01 Completed University of 00:00:00 [facility] HEPLISAV HEP B, 2020-09-01 Completed Universit y of ADULT 2 DOSE, IM 00:00:00 [facility] TDAP 2020-09-01 Completed University of 00:00:00 [facility] HEPLISAV HEP B, 2020-09-01 Completed Universit y of ADULT 2 DOSE, IM 00:00:00 [facility] TDAP 2020-09-01 Completed University of 00:00:00 [facility] HEPLISAV HEP B, 2020-09-01 Completed Universit y of ADULT 2 DOSE, IM 00:00:00 [facility] TDAP 2020-09-01 Completed University of 00:00:00 [facility] HEPLISAV HEP B, 2020-09-01 Completed Universit y of ADULT 2 DOSE, IM 00:00:00 [facility] TDAP 2020-09-01 Completed University of 00:00:00 [facility] HEPLISAV HEP B, 2020-09-01 Completed Universit y of ADULT 2 DOSE, IM 00:00:00 [facility] TDAP 2020-09-01 Completed University of 00:00:00 [facility] HEPLISAV HEP B, 2020-09-01 Completed Universit y of ADULT 2 DOSE, IM 00:00:00 [facility] TDAP 2020-09-01 Completed University of 00:00:00 [facility] HEPLISAV HEP B, 2020-09-01 Completed Universit y of ADULT 2 DOSE, IM 00:00:00 [facility] TDAP 2020-09-01 Completed University of 00:00:00 [facility] HEPLISAV HEP B, 2020-09-01 Completed Universit y of ADULT 2 DOSE, IM 00:00:00 [facility] Branch TDAP 2020-09-01 Completed University of 00:00:00 [facility] HEPLISAV HEP B, 2020-09-01 Completed Universit y of ADULT 2 DOSE, IM 00:00:00 [facility] Branch TDAP 2020-09-01 Completed University of 00:00:00 [facility] HEPLISAV HEP B, 2020-09-01 Completed Universit y of ADULT 2 DOSE, IM 00:00:00 [facility] TDAP 2020-09-01 Completed University of 00:00:00 [facility] HEPLISAV HEP B, 2020-09-01 Completed Universit y of ADULT 2 DOSE, IM 00:00:00 [facility] TDAP 2020-09-01 Completed University of 00:00:00 [facility] HEPLISAV HEP B, 2020-09-01 Completed Universit y of ADULT 2 DOSE, IM 00:00:00 [facility] TDAP 2020-09-01 Completed University of 00:00:00 [facility] HEPLISAV HEP B, 2020-09-01 Completed Universit y of ADULT 2 DOSE, IM 00:00:00 [facility] TDAP 2020-09-01 Completed University of 00:00:00 [facility] HEPLISAV HEP B, 2020-09-01 Completed Universit y of ADULT 2 DOSE, IM 00:00:00 [facility] TDAP 2020-09-01 Completed University of 00:00:00 [facility] HEPLISAV HEP B, 2020-09-01 Completed Universit y of ADULT 2 DOSE, IM 00:00:00 [facility] TDAP 2020-09-01 Completed University of 00:00:00 [facility] HEPLISAV HEP B, 2020-09-01 Completed Universit y of ADULT 2 DOSE, IM 00:00:00 [facility] TDAP 2020-09-01 Completed University of 00:00:00 [facility] Influenza Virus 2020-04-21 Completed Universit y of Vaccine Quad .5 mL 00:00:00 [facility] 6+ MO Branch Pneumococcal 13 2020-04-21 Completed Universit y of Conjugate, PCV13 00:00:00 [facility] dical (Prevnar 13) Branch HEPLISAV HEP B, 2020-04-21 Completed Universit y of ADULT 2 DOSE, IM 00:00:00 [facility] Branch Influenza Virus 2020-04-21 Completed Universit y of Vaccine Quad .5 mL 00:00:00 [facility] IM 6+ MO Branch Pneumococcal 13 2020-04-21 Completed Universit y of Conjugate, PCV13 00:00:00 [facility] dical (Prevnar 13) Branch HEPLISAV HEP B, 2020-04-21 Completed Universit y of ADULT 2 DOSE, IM 00:00:00 [facility] Influenza Virus 2020-04-21 Completed Universit y of Vaccine Quad .5 mL 00:00:00 [facility] IM 6+ MO Branch Pneumococcal 13 2020-04-21 Completed Universit y of Conjugate, PCV13 00:00:00 [facility] dical (Prevnar 13) Branch HEPLISAV HEP B, 2020-04-21 Completed Universit y of ADULT 2 DOSE, IM 00:00:00 [facility] dical Branch Influenza Virus 2020-04-21 Completed Universit y of Vaccine Quad .5 mL 00:00:00 [facility] IM 6+ MO Branch Pneumococcal 13 2020-04-21 Completed Universit y of Conjugate, PCV13 00:00:00 [facility] dical (Prevnar 13) Branch HEPLISAV HEP B, 2020-04-21 Completed Universit y of ADULT 2 DOSE, IM 00:00:00 [facility] dical Branch Influenza Virus 2020-04-21 Completed Universit y of Vaccine Quad .5 mL 00:00:00 [facility] IM 6+ MO Branch Pneumococcal 13 2020-04-21 Completed Universit y of Conjugate, PCV13 00:00:00 [facility] dical (Prevnar 13) Branch HEPLISAV HEP B, 2020-04-21 Completed Universit y [facility] ADULT 2 DOSE, [facility] 2020-04-21 Completed Universit y of Vaccine Quad .5 mL 00:00:00 [facility] IM 6+ MO Branch Pneumococcal 13 2020-04-21 Completed Universit y of Conjugate, PCV13 00:00:00 [facility] dical (Prevnar 13) Branch HEPLISAV HEP B, 2020-04-21 Completed Universit y of ADULT 2 DOSE, IM 00:00:00 [facility] dical Branch Influenza Virus 2020-04-21 Completed Universit y of Vaccine Quad .5 mL 00:00:00 [facility] IM 6+ MO Branch Pneumococcal 13 2020-04-21 Completed Universit y of Conjugate, PCV13 00:00:00 [facility] dical (Prevnar 13) Branch HEPLISAV HEP B, 2020-04-21 Completed Universit y of ADULT 2 DOSE, IM 00:00:00 [facility] dical Branch Influenza Virus 2020-04-21 Completed Universit y of Vaccine Quad .5 mL 00:00:00 [facility] IM 6+ MO Branch Pneumococcal 13 2020-04-21 Completed Universit y of Conjugate, PCV13 00:00:00 [facility] dical (Prevnar 13) Branch HEPLISAV HEP B, 2020-04-21 Completed Universit y of ADULT 2 DOSE, IM 00:00:00 [facility] dical Branch Influenza Virus 2020-04-21 Completed Universit y of Vaccine Quad .5 mL 00:00:00 [facility] IM 6+ MO Branch Pneumococcal 13 2020-04-21 Completed Universit y of Conjugate, PCV13 00:00:00 [facility] dical (Prevnar 13) Branch HEPLISAV HEP B, 2020-04-21 Completed Universit y of ADULT 2 DOSE, IM 00:00:00 [facility] dical Branch Influenza Virus 2020-04-21 Completed Universit y of Vaccine Quad .5 mL 00:00:00 [facility] IM 6+ MO Branch Pneumococcal 13 2020-04-21 Completed Universit y of Conjugate, PCV13 00:00:00 [facility] dical (Prevnar 13) Branch HEPLISAV HEP B, 2020-04-21 Completed Universit y of ADULT 2 DOSE, IM 00:00[facility]00 [facility] 2020-04-21 Completed Universit y of Vaccine Quad .5 mL 00:00:00 [facility] IM 6+ MO Branch Pneumococcal 13 2020-04-21 Completed Universit y of Conjugate, PCV13 00:00:00 [facility] dical (Prevnar 13) Branch HEPLISAV HEP B, 2020-04-21 Completed Universit y of ADULT 2 DOSE, IM 00:00[facility]00 [facility] 2020-04-21 Completed Universit y of Vaccine Quad .5 mL 00:00:00 [facility] IM 6+ MO Branch Pneumococcal 13 2020-04-21 Completed Universit y of Conjugate, PCV13 00:00:00 [facility] dical (Prevnar 13) Branch HEPLISAV HEP B, 2020-04-21 Completed Universit y of ADULT 2 DOSE, IM 00:00:00 [facility] dical Branch Influenza Virus 2020-04-21 Completed Universit y of Vaccine Quad .5 mL 00:00:00 [facility] IM 6+ MO Branch Pneumococcal 13 2020-04-21 Completed Universit y of Conjugate, PCV13 00:00:00 [facility] dical (Prevnar 13) Branch HEPLISAV HEP B, 2020-04-21 Completed Universit y of ADULT 2 DOSE, IM 00:00:00 [facility] Branch Influenza Virus 2020-04-21 Completed Universit y of Vaccine Quad .5 mL 00:00:00 [facility] IM 6+ MO Branch Pneumococcal 13 2020-04-21 Completed Universit y of Conjugate, PCV13 00:00:00 [facility] Branch HEPLISAV HEP B, 2020-04-21 Completed Universit y of ADULT 2 DOSE, IM 00:00:00 [facility] dical Branch Influenza Virus 2020-04-21 Completed Universit y of Vaccine Quad .5 mL 00:00:00 [facility] IM 6+ MO Branch Pneumococcal 13 2020-04-21 Completed Universit y of Conjugate, PCV13 00:00:00 [facility] Branch HEPLISAV HEP B, 2020-04-21 Completed Universit y of ADULT 2 DOSE, IM 00:00:00 [facility] Branch Influenza Virus 2020-04-21 Completed Universit y of Vaccine Quad .5 mL 00:00:00 [facility] IM 6+ MO Branch Pneumococcal 13 2020-04-21 Completed Universit y of Conjugate, PCV13 00:00:00 [facility] (Prevnar 13) Branch HEPLISAV HEP B, 2020-04-21 Completed Universit y of ADULT 2 DOSE, IM 00:00:00 [facility] Branch Influenza Virus 2020-04-21 Completed Universit y of Vaccine Quad .5 mL 00:00:00 [facility] IM 6+ MO Branch Pneumococcal 13 2020-04-21 Completed Universit y of Conjugate, PCV13 00:00:00 [facility] (Prevnar 13) Branch HEPLISAV HEP B, 2020-04-21 Completed Universit y of ADULT 2 DOSE, IM 00:00:00 [facility] Branch Influenza Virus 2020-04-21 Completed Universit y of Vaccine Quad .5 mL 00:00:00 [facility] IM 6+ MO Branch Pneumococcal 13 2020-04-21 Completed Universit y of Conjugate, PCV13 00:00:00 [facility] (Prevnar 13) Branch HEPLISAV HEP B, 2020-04-21 Completed Universit y of ADULT 2 DOSE, IM 00:00:00 [facility] Branch Influenza Virus 2020-04-21 Completed Universit y of Vaccine Quad .5 mL 00:00:00 [facility] IM 6+ MO Branch Pneumococcal 13 2020-04-21 Completed Universit y of Conjugate, PCV13 00:00:00 [facility] dical (Prevnar 13) Branch HEPLISAV HEP B, 2020-04-21 Completed Universit y of ADULT 2 DOSE, IM 00:00:00 [facility] dicmo Branch Influenza Virus 2020-04-21 Completed Universit y of Vaccine Quad .5 mL 00:00:00 [facility] IM 6+ MO Branch Pneumococcal 13 2020-04-21 Completed Universit y of Conjugate, PCV13 00:00:00 [facility] dical (Prevnar 13) Branch HEPLISAV HEP B, 2020-04-21 Completed Universit y of ADULT 2 DOSE, IM 00:00:00 [facility] dical Branch Influenza Virus 2020-04-21 Completed Universit y of Vaccine Quad .5 mL 00:00:00 [facility] IM 6+ MO Branch Pneumococcal 13 2020-04-21 Completed Universit y of Conjugate, PCV13 00:00:00 [facility] dical (Prevnar 13) Branch HEPLISAV HEP B, 2020-04-21 Completed Universit y of ADULT 2 DOSE, IM 00:00:00 [facility] Branch Influenza Virus 2020-04-21 Completed Universit y of Vaccine Quad .5 mL 00:00:00 [facility] 6+ MO Branch Pneumococcal 13 2020-04-21 Completed Universit y of Conjugate, PCV13 00:00:00 [facility] dical (Prevnar 13) Branch HEPLISAV HEP B, 2020-04-21 Completed Universit y of ADULT 2 DOSE, IM 00:00:00 [facility] Vital Signs Vital Name Observation Time Observation Value Comments Source Systolic blood 2022-03-08 14:42:00 128 [facility] Diastolic blood 2022-03-08 14:42:00 80 mm[facility]Hg] [facility] Heart rate 2022-03-08 14:42:00 86 /min [facility] Body temperature 2022-03-08 14:39:00 36.5 Zahraa [facility] Res[facility] rate 2022-03-08 14:39:00 18 /min [facility] Body height 2022-03-08 14:39:00 175.3 cm [facility] Body weight 2022-03-08 14:39:00 115.531 kg [facility] BMI 2022-03-08 14:39:00 37.61 kg/m2 [facility] Oxygen saturation in 2022-03-08 14:39:00 99 /min [facility] Arterial blood by [facility] Pulse oximetry Branch Procedures Procedure Date / Time Performing Clinician Source Performed COMP. METABOLIC PANEL 2022-03-08 16:31:00 [id number] CBC WITH DIFF 2022-03-08 16:31:00 Mery Walton [facility] CD4 SUBSET ASSAY 2022-03-08 16:31:00 Mery Walton [facility] SYPHILIS FOLLOW UP 2022-03-08 16:31:00 Mery Walton [facility] HCV ANTIBODY 2022-03-08 16:31:00 Mery Walton [facility] GC & CHLAMYDIA AMPLIFIED 2022-03-08 16:31:00 Mery Walton [facility] vers[facility] HUMAN IMMUNODEFICIENCY 2022-03-08 16:31:00 [facility] (HIV-1[facility] BY [facility] QUANTITATIVE NAAT FLU VACC ([id number]), 6 2022-03-08 15:16:08 Mery Walton [facility] MO-64 YRS, .5ML, IM, QUAD Medica l Branch (FLUCELVAX) SARS-COV-2 COVID-19 2022-03-08 15:16:08 Mery Walton [facility] PAOLA-SUCROSE VACCINE 12 [facility] YRS+, BIVALENT 0.3ML, IM, (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) Encounters Start End Encounter Admission Attending Care Care Encounter Source Date/Time Date/Time Type Type Clinicians Facility Department ID 2022-03-01 Outpatient CHW [facility]W [id number] [place] 12:43:18 0404 [facility] 2020-04-13 Inpatient U [facility] MAGALI [id number] Univers 22:09:00 isael BELTRAN [facility] 2022-07-09 2022-07-[address] [facility] [id number] Univers 09:00:00 09:00:00 JOSEFINA kirkland [facility] 2022-07-05 2022-07-05 Case Lorenzo, UNIVERSIT [id number] Univers 00:00:00 00:00:00 Management Nechelle Y HEALTH [id number] [id number] [id number] [address] 2022-07-05 2022-07-05 Case Nicci, [facility] [id number] Univers 00:00:00 00:00:00 Management Brandin L Y HEALTH [id number] [id number] [id number] [address] 2022-06-25 2022-06-25 Telephone Nicci KERIIT [id number] Univers 00:00:00 00:00:00 Brandin L Y HEALTH [id number] [id number] [id number] [address] 2022-06-21 2022-06-21 Case Lorenzo, [facility] [id number] Univers 00:00:00 00:00:00 Management Nechelle Y HEALTH [id number] [id number] [id number] [address] 2022-06-21 2022-06-21 Case Nicci KERIIT [id number] Univers 00:00:00 00:00:00 Management Brandin L Y HEALTH [id number] [place] [id number] [address] 2022-05-30 2022-05-30 Zaina WALL, [facility] [id number] Univers 10:00:00 10:00:00 TRANSON ity of [facility] 2022-05-24 2022-05-24 Case Nicci KERIIT [id number] Univers 00:00:00 00:00:00 Management Brandin L Y HEALTH [id number] [place] [id number] [facility] 089 Branch 2022-05-24 2022-05-24 Rhett Ventura, [facility] [id number] Univers 00:00:00 00:00:00 Management Nechelle Y HEALTH [id number] [place] [id number] [place] [address] Branch 2022-05-02 2022-05-02 Doreen Wall, [facility] [id number] Univers 00:00:00 00:00:00 Transon Y HEALTH 350.1.13.10 i ty [place] [id number] [address] 2022-04-30 2022-04-30 Outpatient Abner WILDE, [facility] [id number] Univers 09:00:00 09:53:08 JOSEFINA ity [facility] 2022-04-30 2022-04-30 Office Dillan Palacio UNIVERS [id number] Univers 09:00:00 09:53:08 Visit Josefina Wilde Y HEALTH [id number] ity [place] [id number] [place] [address] Branch 2022-03-25 2022-03-25 Rhett Aguilar, UN[facility] [id number] Univers 00:00:00 00:00:00 Management Awilda L Y HEALTH 350.1.13.10 ity [place] [id number] [place] [address] Branch 2022-03-15 2022-03-15 Telephone [facility] 1.2.840.114 [id number] Univers 00:00:00 00:00:00 Mery Y HEALTH 350.1.13.10 i ty of [place] [id number] [place] [address] Branch 2022-03-13 2022-03-13 Telephone Walton, [facility] [id number] Univers 00:00:00 00:00:00 Mery Y HEALTH 350.1.13.10 i ty [place] [id number] [place] [address] [place] 2022-03-08 2022-03-08 Protective Services Social Worker [facility] 1.2.840.114 [id number] Univers 11:15:00 11:30:00 Visit Mery Walton Y HEALTH 350.1.13.10 [place]y [place] [id number] [address] 2022-03-08 2022-03-[address] [facility] [id number] Univers 09:30:00 10:54:43 MERY ity [facility] 2022-03-08 2022-03-08 Office Jen [facility] [id number] Univers 09:30:00 10:54:43 Visit Mery Y HEALTH 350.1.13.10 i ty [place] [id number] [address] 2022-03-07 2022-03-07 Telephone Shannon [facility] 1.2.840.114 [id number] Univers 00:00:00 00:00:00 Annie L Y HEALTH 350.1.13.10 [place] [id number] [address] 2022-02-20 2022-02-20 Case Shannon [facility] 1.2.840.114 [id number] Univers 00:00:00 00:00:00 Management Annie L Y HEALTH 350.1.13.10 [place] [id number] [address] 2022-02-14 2022-02-14 Telemediclorenzo Wall [facility] [id number] Univers 11:30:00 12:00:00 ne Visit Transon Y HEALTH 350.1.13.10 [place]y [place] [id number] [address] 2022-02-14 2022-02-[address] [facility] [id number] Univers 11:30:00 11:30:00 TRANSON ity of [facility] 2022-02-13 2022-02-13 Telephone [facility] 1.2.840.114 [id number] Univers 00:00:00 00:00:00 Annie L Y HEALTH 350.1.13.10 [place] [id number] [address] 2022-02-13 2022-02-13 Doreen Walton, [facility] [id number] Univers 00:00:00 00:00:00 Mery Y HEALTH 350.1.13.10 i ty [place] [id number] [address] 2022-01-24 2022-01-24 [facility] 1.2.840.114 [id number] Univers 00:00:00 00:00:00 Lorrie R Y HEALTH 350.1.13.10 [place] [id number] [address] 2022-01-22 2022-01-22 Rhett Grajeda, [facility] [id number] Univers 00:00:00 00:00:00 Management Brandin L Y HEALTH 350.1.13.10 [place]y [place] [id number] [address] 2022-01-19 2022-01-19 Telephone [facility] 1.2.840.114 [id number] Univers 00:00:00 00:00:00 Lorrie R Y HEALTH 350.1.13.10 [place]y [place] [id number] [address] 2022-01-18 2022-01-18 Case Yazan Gomez, [facility] [id number] Univers 00:00:00 00:00:00 Management Lorrie R Y HEALTH 350.1.13.10 [place] [id number] [address] 2022-01-09 2022-01-09 Refbolivar Rivero, [facility] 1.2.139.927 [id number] Univers 00:00:00 00:00:00 Tony Y HEALTH 350.1.13.10 [place] [id number] [address] 2022-01-04 2022-01-04 Case Lorenzo, [facility] 1.2.840.114 9 [id number] Univers 00:00:00 00:00:00 Management Nechelle Y HEALTH 350.1.13.10 [place] [id number] [address] 2021-12-28 2021-12-28 Case Nicci, [facility] 1.2.237.301 [id number] Univers 00:00:00 00:00:00 Management Brandin L Y HEALTH 350.1.13.10 it[place] [id number] [address] 2021-12-23 2021-12-23 Telephone Jen [facility] 1.2.840.114 9 [id number] Univers 00:00:00 00:00:00 Mery Y HEALTH 350.1.13.10 i ty [place] [id number] [address] 2021-12-23 2021-12-23 [facility] 1.2.840.114 9 [id number] Univers 00:00:00 00:00:00 Mery Y HEALTH 350.1.13.10 i ty [place] [id number] [address] 2021-12-07 2021-12-07 Telephone Shannon [facility] 1.2.840.114 [id number] Univers 00:00:00 00:00:00 Annie L Y HEALTH 350.1.13.10 it[place] [id number] [address] 2021-12-07 2021-12-07 Case Shannon, [facility] 1.2.840.114 94 [id number] Univers 00:00:00 00:00:00 Management Annie L Y HEALTH 350.1.13.10 [place] [id number] [address] 2021-11-29 2021-11-29 Telemedici Self, [facility] 1.2.840.114 9 [id number] Univers 14:00:00 14:30:00 ne Visit Tony Y HEALTH 350.1.13.10 [place] [id number] [address] 2021-11-29 2021-11-29 Outpatient R SELF, [facility] [id number] Univers 14:00:00 14:00:00 TONY ity o f [facility] 2021-11-28 2021-11-28 Telephone Shannon, [facility] 1.2.840.114 [id number] Univers 00:00:00 00:00:00 Annie L Y HEALTH 350.1.13.10 [place] [id number] [address] 2021-11-01 2021-11-01 Case Shannon, [facility] 1.2.840.114 93 [id number] Univers 00:00:00 00:00:00 Management Annie L Y HEALTH 350.1.13.10 [place] [id number] [address] 2021-11-01 2021-11-01 Case Lorenzo, [facility] 1.2.840.114 9 [id number] Univers 00:00:00 00:00:00 Management Nechelle Y HEALTH 350.1.13.10 it[place] [id number] [address] 2021-10-18 2021-10-18 Case Shannon, [facility] 1.2.840.114 93 [id number] Univers 00:00:00 00:00:00 Management Annie Hien Y HEALTH 350.1.13.10 ity [place] [id number] [address] 2021-10-18 2021-10-18 Case Lorenzo, [facility] 1.2.840.114 9 [id number] Univers 00:00:00 00:00:00 Management Nechelle Y HEALTH 350.1.13.10 it[place] [id number] [address] 2021-10-11 2021-10-11 Telemedici Mat, [facility] 1.2.840.114 9 [id number] Univers 13:00:00 13:30:[address] [facility] 350.1.13.10 ity of [place] [id number] [address] 2021-10-11 2021-10-[address] [facility] [id number] Univers 13:00:00 13:00:00 TONY becerra [facility] 2021-08-24 2021-08-24 Telephone Jen [facility] 1.2.840.114 9 [id number] Univers 00:00:00 00:00:00 [facility] HEALTH 350.1.13.10 i ty [place] [id number] [address] 2021-08-18 2021-08-[address] [facility] [id number] Univers 10:45:00 13:48:33 ROBERTA kirkland [facility] 2021-08-18 2021-08-18 Office Dillan Palacio UN[facility]ERS 1.2.840.11 4 [id number] Univers 10:45:00 11:00:00 Visit Roberta Coburn HEALTH 350.1.13.1 0 ity of [place] [id number] [address] 2021-08-18 2021-08-18 Outpatient R ALMAS, [facility] [id number] Univers 10:45:00 10:45:00 ROBERTA itjace of [facility] 2021-08-18 2021-08-18 Letter Hakeem, [facility] 1.2.894.949 [id number] Univers 00:00:00 00:00:00 (Out) [facility] HEALTH 350.1.13.10 i ty [place] [id number] [address] 2021-08-16 2021-08-16 Telemedici Mat, [facility] 1.2.840.114 9 [id number] Univers 15:30:00 16:00:00 ne Visit [facility] HEALTH 350.1.13.10 it[place] [id number] [address] 2021-08-16 2021-08-16 Outpatient R MAT, [facility] [id number] Univers 15:30:00 15:30:00 TONY conley [facility] 2021-08-15 2021-08-15 Telephone Shannon [facility] 1.2.840.114 [id number] Univers 00:00:00 00:00:00 [facility] HEALTH 350.1.13.10 ity [place] [id number] [address] 2021-08-15 2021-08-15 Telephone Jen [facility] 1.2.840.114 9 [id number] Univers 00:00:00 00:00:00 [facility] HEALTH 350.1.13.10 i ty [place] [id number] [address] 2021-08-09 2021-08-09 Outpatient R SELF, [facility] [id number] Univers 13:30:00 13:30:00 TONY isael o [facility] 2021-08-08 2021-08-08 Telephone Shannon [facility] 1.2.840.114 [id number] Univers 00:00:00 00:00:00 Annie L Y HEALTH 350.1.13.10 ity [place] [id number] [address] 2021-08-03 2021-08-03 Protective Services Social Worker [facility] 1.2.840.114 9 [id number] Univers 13:15:00 13:30:00 Visit Meyr Walton HEALTH 350.1.13.10 ity [place] [id number] [address] 2021-08-03 2021-08-03 Nurse Visit, [facility] Id Nurse [facility] 1.2. 840.114 [id number] Univers 13:00:00 13:15:00 Visit Mery Walton HEALTH 350.1.13.10 it[place] [id number] [address] 2021-08-03 2021-08-03 Office KERI WaltonIT 1.2.840.114 [id number] Univers 11:00:00 11:30:00 Visit Mery HEALTH 350.1.13.10 i ty of [place] [id number] [address] 2021-08-03 2021-08-[address] [facility] [id number] Univers 11:00:00 11:00:00 MERY kirkland of [facility] 2021-08-02 2021-08-02 Case KERI OrtegaIT 1.2.840.114 [id number] Univers 00:00:00 00:00:00 Management Annie L Y HEALTH 350.1.13.10 ity [place] [id number] [address] 2021-08-02 2021-08-02 Telephone LUIS Ortega 1.2.840.114 [id number] Univers 00:00:00 00:00:00 Annie L Y HEALTH 350.1.13.10 it[place] [id number] [address] 2021-07-13 2021-07-13 Outpatient R GILMER, [facility] [id number] Univers 11:00:00 11:54:59 KEVIN ity of [facility] 2021-07-13 2021-07-13 Office Dillan Palacio [facility] 1.2.840.11 4 [id number] Univers 11:00:00 11:54:59 Visit Kevin Scherer Y HEALTH 350.1.13.10 ity [place] [id number] [address] 2021-07-13 2021-07-13 Case Yazan Gomez, [facility] 1.2.840.114 9 [id number] Univers 00:00:00 00:00:00 Management Lorrie R Y HEALTH 350.1.13.10 ity [place] [id number] [address] 2021-06-28 2021-06-28 [facility] 1.2.840.114 90 [id number] Univers 00:00:00 00:00:00 Management Annie L Y HEALTH 350.1.13.10 ity [place] [id number] [address] 2021-06-21 2021-06-21 Telemedici Self, [facility] 1.2.840.114 8 [id number] Univers 16:00:00 17:00:00 ne Visit Tony Y HEALTH 350.1.13.10 it[place] [id number] [address] 2021-06-21 2021-06-21 Outpatient R SELF, [facility] [id number] Univers 16:00:00 16:00:00 TONY ity o f [facility] 2021-06-21 2021-06-21 Case Yazan Gomez, [facility] 1.2.840.114 9 [id number] Univers 00:00:00 00:00:00 Management Lorrie R Y HEALTH 350.1.13.10 it[place] [id number] [address] 2021-06-21 2021-06-21 Case Lorenzo, [facility] 1.2.840.114 9 [id number] Univers 00:00:00 00:00:00 Management Nechelle Y HEALTH 350.1.13.10 ity [place] [id number] [address] 2021-06-06 2021-06-06 Doreen Rivero, [facility] 1.2.090.339 [id number] Univers 00:00:00 00:00:00 Tony Y HEALTH 350.1.13.10 it[place] [id number] [address] 2021-05-23 2021-05-23 Office Dillan Palacio [facility] 1.2.840.11 4 [id number] Univers 14:00:00 14:57:13 Visit Gela Moreno Y HEALTH 350.1.13 .10 ity of [place] [id number] [address] 2021-05-23 2021-05-[address] [facility] [id number] Univers 14:00:00 14:57:13 GELA jace [facility] 2021-05-23 2021-05-[address] [facility] [id number] Univers 14:00:00 14:57:13 GELA jace [facility] 2021-05-23 2021-05-23 Letter Hakeem [facility] 1.2.125.157 [id number] Univers 00:00:00 00:00:00 (Out) Dillan Sweet HEALTH 350.1.13.10 i ty [place] [id number] [address] 2021-05-23 2021-05-23 Rhett Ortega, [facility] 1.2.840.114 89 [id number] Univers 00:00:00 00:00:00 Management Annie L Y HEALTH 350.1.13.10 ity [place] [id number] [address] 2021-05-16 2021-05-16 Telephone Yazan Gomez, [facility] 1.2.840.114 [id number] Univers 00:00:00 00:00:00 Lorrei Sweet HEALTH 350.1.13.10 ity [place] [id number] [address] [place] 2021-05-04 2021-05-04 Outpatient R WALTON, [facility] [id number] Univers 13:10:00 13:10:00 MERY kirkland [facility] 2021-05-04 2021-05-04 Imm/Inj Vaccine, Gal [facility] 1.2.840 .114 [id number] Univers 12:37:51 12:47:51 Visit Mery Walton HEALTH 350.1.13.10 ity of CL[place]ICS [place] [id number] [place] [address] [place] 2021-05-04 2021-05-04 Protective Services Social Worker [facility] 1.2.840.114 8 [id number] Univers 12:10:47 12:25:47 Visit Mery Walton HEALTH 350.1.13.10 ity of CL[place] [id number] [facility] [address] 2021-05-04 2021-05-04 Office KERI Walton 1.2.840.114 [id number] Univers 10:34:49 12:06:28 Visit Mery SIMMS 350.1.13.10 i ty of CLINICS [place] [id number] [place] [address] [place] 2021-05-04 2021-05-[address] [facility] [id number] Univers 10:30:00 12:06:28 MERY kirkland [facility] 2021-05-04 2021-05-04 Case Yazan Gomez, KERIIT 1.2.840.114 8 [id number] Univers 00:00:00 00:00:00 Management Lorrie Sweet HEALTH 350.1.13.10 ity [place] [id number] [address] 2021-05-03 2021-05-03 Case Yazan Gomez, [facility] 1.2.840.114 8 [id number] Univers 00:00:00 00:00:00 Management Lorrie R Y HEALTH 350.1.13.10 it[place] [id number] [address] 2021-05-01 2021-05-01 Case Shannon, [facility] 1.2.840.114 89 [id number] Univers 00:00:00 00:00:00 Management Annie L Y HEALTH 350.1.13.10 ity [place] [id number] [address] 2021-04-26 2021-04-26 Outpatient R MAT, [facility] [id number] Univers 16:00:00 16:00:00 TONY conley f [facility] 2021-04-26 2021-04-26 Office Self, [facility] 1.2.905.262 [id number] Univers 09:48:49 10:48:49 Visit [facility] HEALTH 350.1.13.10 ity of [place] [id number] [address] 2021-04-25 2021-04-25 Telephone Nicci [facility] 1.2.840.114 89 [id number] Univers 00:00:00 00:00:00 Brandin L Y HEALTH 350.1.13.10 ity [place] [id number] [address] 2021-03-28 2021-03-28 Nurse Visit, [facility] Id Nurse [facility] 1.2. 840.114 [id number] Univers 10:31:17 10:46:17 Visit Mery Walton HEALTH 350.1.13.10 ity of [place] [id number] [address] 2021-03-28 2021-03-[address] [facility] [id number] Univers 10:30:00 10:30:00 MERY kirkland [facility] 2021-03-28 2021-03-28 Case Yazan Gomez, [facility] 1.2.840.114 8 [id number] Univers 00:00:00 00:00:00 Management Lorrie R Y HEALTH 350.1.13.10 ity [place] [id number] [address] 2021-03-27 2021-03-27 Case Yazan Gomez, [facility] 1.2.840.114 8 [id number] Univers 00:00:00 00:00:00 Management Lorrie R Y HEALTH 350.1.13.10 [place] [id number] [address] 2021-01-30 2021-01-30 Case Ortega, [facility] 1.2.840.114 86 [id number] Univers 00:00:00 00:00:00 Management Annie L Y HEALTH 350.1.13.10 ity [place] [id number] [address] 2021-01-26 2021-01-26 Protective Services Social Worker [facility] 1.2.840.114 8 [id number] Univers 11:22:15 11:37:15 Visit Jen Mery Sweet HEALTH 350.1.13.10 ity of CL[place] [id number] [address] 2021-01-26 2021-01-26 Office Jen [facility] 1.2.840.114 [id number] Univers 10:20:02 11:19:23 Visit Mery Sweet [facility] 350.1.13.10 i ty of CL[place] [id number] [address] 2021-01-26 2021-01-[address] [facility] [id number] Univers 10:30:00 10:30:00 MERY kirkland [facility] 2021-01-26 2021-01-26 Case Shannon [facility] 1.2.840.114 86 [id number] Univers 00:00:00 00:00:00 Management Annie L Y HEALTH 350.1.13.10 ity [place] [id number] [address] 2021-01-25 2021-01-25 Telephone Yazan Gomez, [facility] 1.2.840.114 [id number] Univers 00:00:00 00:00:00 Lorrie R Y HEALTH 350.1.13.10 ity [place] [id number] [address] 2021-01-19 2021-01-19 Case Shannon, [facility] 1.2.840.114 86 [id number] Univers 00:00:00 00:00:00 Management Annie L Y HEALTH 350.1.13.10 ity of [place] [id number] [address] 2021-01-10 2021-01-10 [facility] 1.2.840.114 [id number] Univers 00:00:00 00:00:00 Annie L Y HEALTH 350.1.13.10 ity of [place] [id number] [address] 2021-01-10 2021-01-10 [facility] 1.2.840.114 [id number] Univers 00:00:00 00:00:00 Annie L Y HEALTH 350.1.13.10 ity of [place] [id number] [address] 2020-12-29 2020-12-[address] [facility] [id number] Univers 09:00:00 09:00:00 MERY kirkland of [facility] 2020-12-28 2020-12-28 Telephone Visits, [facility] 1.2.840.11 4 [id number] Univers 00:00:00 00:00:00 Id Care Y HEALTH 350.1.13.10 i ty of Mgmt [place] [id number] [address] 2020-12-26 2020-12-26 Case Shannon, [facility] 1.2.840.114 86 [id number] Univers 00:00:00 00:00:00 Management Annie Stanford HEALTH 350.1.13.10 ity of [place] [id number] [address] 2020-12-01 2020-12-01 Outpatient Abner JEN, [facility] [id number] Univers 10:30:00 10:30:00 MERY ity [facility] 2020-11-29 2020-11-29 Case Sergo, [facility] 1.2.712.281 [id number] Univers 00:00:00 00:00:00 Management Cintia HEALTH 350.1.13.10 ity [place] [id number] [address] 2020-10-12 2020-10-12 Case Nicci, [facility] 1.2.406.836 [id number] Univers 00:00:00 00:00:00 Management Brandin L HEALTH 350.1.13.10 ity of [place] [id number] [address] 2020-10-03 2020-10-[address] [facility] [id number] Univers 10:50:00 10:59:54 FRANCIA [facility] 2020-10-03 2020-10-[address] [facility] [id number] Univers 10:50:00 10:50:00 FRANCIA ity [facility] 2020-09-05 2020-09-[address] [facility] [id number] Univers 10:50:00 10:50:00 FRANCIA y [facility] 2020-09-05 2020-09-[address] [facility] [id number] Univers 10:50:00 10:49:55 FRANCIA [facility] 2020-09-01 2020-09-01 Protective Services Social Worker [facility] 1.2.840.114 8 [id number] Univers 12:00:16 12:15:16 Visit Mery Walton HEALTH 350.1.13.10 ity of [place] [id number] [facility] [address] 2020-09-01 2020-09-01 Office Jen [facility] 1.2.840.114 [id number] Univers 10:56:13 11:26:13 Visit Mery Y HEALTH 350.1.13.10 i ty of CL[place]ICS [place] [id number] [place] [address] [place] 2020-09-01 2020-09-[address] [facility] [id number] Univers 10:30:00 10:30:00 MERY [facility] 2020-08-31 2020-08-31 Case Yazan Gomez, [facility] 1.2.840.114 8 [id number] Univers 00:00:00 00:00:00 Management Lorrie R Y HEALTH 350.1.13.10 ity of [place] [id number] [place] [address] [place] 2020-08-30 2020-08-30 Case Sergo, [facility] 1.2.669.876 [id number] Univers 00:00:00 00:00:00 Management Cintia Y HEALTH 350.1.13.10 it[place] [id number] [address] 2020-08-19 2020-08-19 Case Yazan Gomez, [facility] 1.2.840.114 8 [id number] Univers 00:00:00 00:00:00 Management Lorrie R Y HEALTH 350.1.13.10 ity [place] [id number] [address] 2020-08-12 2020-08-12 Outpatient R KHOI, [facility] [id number] Univers 11:00:00 11:00:00 SHANTA kirkland [facility] 2020-08-10 2020-08-10 Lucila Grajeda [facility] 1.2.840.114 82 [id number] Univers 00:00:00 00:00:00 Brandin L Y HEALTH 350.1.13.10 [place]y [place] [id number] [address] 2020-08-05 2020-08-05 Telephone Gloriasummerjace, [facility] 1.2.840.114 82 [id number] Univers 00:00:00 00:00:00 Brandin L Y HEALTH 350.1.13.10 [place] [id number] [address] 2020-08-04 2020-08-04 Telephone Porfirio, [facility] 1.2.840.114 82 [id number] Univers 00:00:00 00:00:00 Brandin L Y HEALTH 350.1.13.10 ity of [place] [id number] [address] 2020-08-03 2020-08-03 Telephone Gloriasummer, [facility] 1.2.840.114 82 [id number] Univers 00:00:00 00:00:00 Brandin L Y HEALTH 350.1.13.10 ity of [place] [id number] [address] 2020-07-29 2020-07-29 Sanford Nicci, [facility] 1.2.840.114 82 [id number] Univers 00:00:00 00:00:00 Brandin L Y HEALTH 350.1.13.10 it[place] of [place] [id number] [address] 2020-07-27 2020-07-27 Rhett Aguilar, [facility] 1.2.803.959 [id number] Univers 00:00:00 00:00:00 Management Awilda L Y HEALTH 350.1.13.10 ity of [place] [id number] [address] 2020-07-27 2020-07-27 Rhett Grajeda [facility] 1.2.929.051 [id number] Univers 00:00:00 00:00:00 Management Brandin L Y HEALTH 350.1.13.10 ity of [place] [id number] [place] [address] [place] 2020-07-05 2020-07-05 Telephone Lorenzo [facility] 1.2.840.114 [id number] Univers 00:00:00 00:00:00 Nechelle Y HEALTH 350.1.13.10 ity of [place] [id number] [address] 2020-06-30 2020-06-30 Telephone Gloriagregory [facility] 1.2.840.114 [id number] Univers 00:00:00 00:00:00 Brandin L Y HEALTH 350.1.13.10 ity of [place] [id number] [address] 2020-06-15 2020-06-15 Case Nicci [facility] 1.2.341.314 [id number] Univers 00:00:00 00:00:00 Management Brandin L Y HEALTH 350.1.13.10 ity of [place] [id number] [address] 2020-06-14 2020-06-14 Case Lorenzo [facility] 1.2.840.114 [id number] Univers 00:00:00 00:00:00 Management Nechelle Y HEALTH 350.1.13.10 ity of [place] [id number] [place] [address] [place] 2020-06-02 2020-06-02 Protective Services Social Worker [facility] 1.2.840.114 [id number] Univers 11:20:27 11:36:46 Visit Jen Mery Y HEALTH 350.1.13.10 ity of [place] [id number] [place] [address] [address] 2020-06-02 2020-06-02 Office Jen [facility] 1.2.840.114 [id number] Univers 10:08:42 11:15:59 Visit Mery Sweet HEALTH 350.1.13.10 i ty of [place] [id number] [address] 2020-06-02 2020-06-02 Outpatient R JEN, [facility] [id number] Univers 10:00:00 10:00:00 MERY ity of [facility] 2020-06-02 2020-06-02 Case Nicci, [facility] 1.2.867.460 [id number] Univers 00:00:00 00:00:00 Management Brandin L Y HEALTH 350.1.13.10 [place]y [place] [id number] [address] 2020-06-02 2020-06-02 Case Jeff, [facility] 1.2.277.904 [id number] Univers 00:00:00 00:00:00 Management Awilda L Y HEALTH 350.1.13.10 [place]y [place] [id number] [address] 2020-05-31 2020-05-31 Case Aguilar, [facility] 1.2.856.835 [id number] Univers 00:00:00 00:00:00 Management Awilda L Y HEALTH 350.1.13.10 [place] [id number] [address] 2020-05-31 2020-05-31 Case Aguilar, [facility] 1.2.351.380 [id number] Univers 00:00:00 00:00:00 Management Awilda L Y HEALTH 350.1.13.10 [place]y [place] [id number] [address] 2020-05-30 2020-05-30 Telephone Del Patricia, [facility] 1.2.840.114 [id number] Univers 00:00:00 00:00:00 Lorrie R Y HEALTH 350.1.13.10 [place]y [place] [id number] [address] 2020-05-25 2020-05-25 Case Alex, [facility] 1.2.840.114 [id number] Univers 00:00:00 00:00:00 Management Lorrie L Y HEALTH 350.1.13.10 ity of [place] 4[place]2.[place] [id number] [place] [address] [place] 2020-05-25 2020-05-25 Case Jeff, [facility] 1.2.577.939 [id number] Univers 00:00:00 00:00:00 Management Awilda L Y HEALTH 350.1.13.10 ity of [place] [id number] [address] 2020-05-17 2020-05-17 Orders Doctor KIRSTEN 1.2.840.114 [id number] Univers 00:00:00 00:00:00 Only Unassigned, RICK 350.1.13.10 ity of [facility] 4.2.7.2.686 [place] [id number] [address] 2020-05-12 2020-05-12 Telephone KERI Grajeda 1.2.840.114 [id number] Univers 00:00:00 00:00:00 Brandin L Y HEALTH 350.1.13.10 ity [place] 4[place] [id number] [address] 2020-05-04 2020-05-04 Nurse Visit, [facility] Dermatology Nurse [facility] 1.2.840.114 [id number] Univers 13:03:58 13:36:23 Visit Darrel Leon Y HEALTH 350.1.13.10 ity of [place] 4[place]2.[place] [phone] [facility] [address] [place] 2020-05-04 2020-05-04 Office KERI Leon 1.2.670.439 [id number] Univers 13:15:00 13:30:00 Visit Darrel R Y HEALTH 350.1.13.10 ity of [place] 4[place] [id number] [address] 2020-05-04 2020-05-[address] [facility] [id number] Univers 13:15:00 13:15:00 DARREL ity of [facility] 2020-05-04 2020-05-04 Case KERI Grajeda 1.2.065.202 [id number] Univers 00:00:00 00:00:00 Management Brandin L Y HEALTH 350.1.13.10 ity of [place] [id number] [address] 2020-05-04 2020-05-04 Lucila Grajeda [facility] 1.2.840.114 [id number] Univers 00:00:00 00:00:00 Brandin L Y HEALTH 350.1.13.10 ity of [place] 4[place] [id number] [address] 2020-04-27 2020-04-27 Nurse Visit, [facility] Id Nurse UNIVERSIT [id number]. [id number] Univers 10:13:52 10:28:52 Visit Mery Walton Jace HEALTH [id number] [id number] [phone] [address] 2020-04-27 2020-04-[address] [facility] [id number] Univers 10:00:00 10:00:00 ity of [facility] 2020-04-21 2020-04-21 Office KERI Walton [id number] Univers 10:17:59 11:36:50 Visit Mery [facility] [id number] i [id number] [id number] [address] 2020-04-21 2020-04-[address] [facility] [id number] Univers 10:00:00 10:00:00 MERY kirkland [facility] 2020-04-21 2020-04-21 Case Yazan Gomez, UNIVERSIT [id number] Univers 00:00:00 00:00:00 Management Lorrie R Y HEALTH [id number] [place] [phone] [address] 2020-04-21 2020-04-21 Case Jeff, UNIVERSIT [id number] Univers 00:00:00 00:00:00 Management Awilda L Y HEALTH [id number] [id number] [phone] [address] 2020-04-21 2020-04-21 Case Nicci, UNIVERSIT [id number] Univers 00:00:00 00:00:00 Management Brandin L Y HEALTH [id number] [place] [phone] [address] 2020-04-20 2020-04-20 Telephone Yazan Gomez, [facility] [id number] Univers 00:00:00 00:00:00 Lorrie R Y HEALTH [id number] [place] [phone] [address] 2020-04-20 2020-04-20 Case Nicci, UNIVERSIT [id number] Univers 00:00:00 00:00:00 Management Brandin L Y HEALTH [id number] [id number] [id number] [address] 2020-04-19 2020-04-19 Case Alex, KERIIT 1.2.840.114 [id number] Univers 00:00:00 00:00:00 Management Lorrie L Y HEALTH [id number] [place] [id number] [address] 2020-04-19 2020-04-19 Transition Ginna Gillespie [id number] Univers 00:00:00 00:00:00 of Care Elba Willis 350.1.13.10 [place] [id number] [address] 2020-04-19 2020-04-19 Telephone KIRSTEN Perez [id number] Univers 00:00:00 00:00:00 Eitan CABRERA 350.1.13.10 it y of HOSPITAL 4.2.7.2.686 [place] [phone] [facility] [address] 2020-04-18 2020-04-18 Case Jeff, [facility] [id number] Univers 00:00:00 00:00:00 Management Awilda Stanford Y HEALTH 350.1.13.10 it[id number] [phone] [place] [id number] 2020-04-17 2020-04-17 Telephone [facility] 1.2.840.114 [id number] Univers 00:00:00 00:00:00 [facility] [id number] i ty of [place] [phone] [place] [address] 2020-04-15 2020-04-15 Telephone [facility] 1.2.840.114 [id number] Univers 00:00:00 00:00:00 [facility] [id number] i [place] [phone] [address] Results This patient has no known results.
[2022-07-17] MEDS ORDERED: dexAMETHasone 10 MG/ML VIAL ONE (13:54)
--- NOTE | 2022-07-17 14:41 | ER ---
Nurse's Notes [facility] Name: Barry Mercedes Age: 32 yrs Sex: Male : 1990 Arrival Date: 07/17/2022 Time: 13:16 Bed IW1 Private MD: Diagnosis: Acute pharyngitis, unspecified Presentation: 07/17 13:42 Chief complaint: Patient states: he has been around people who have been sick, and he ap3 himself has been feeling sick for approx 2 weeks with cough, congestion and sore throat. patient states the sore throat began over the weekend. Coronavirus screen: Client presents with at least one sign or symptom that may indicate coronavirus-19. Ebola Screen: No symptoms or risks identified at this time. Initial Sepsis Screen: Does the patient meet any 2 criteria? No. Patient's initial sepsis screen is negative. Does the patient have a suspected source of infection? No. Patient's initial sepsis screen is negative. Risk Assessment: Do you want to hurt yourself or someone else? Patient reports no desire to harm self or others. Onset of symptoms was July 04, 2022. 13:42 Method Of Arrival: Ambulatory ap3 13:42 Acuity: PETE 4 ap3 Triage Assessment: 13:48 General: Appears in no apparent distress. Behavior is calm, cooperative, appropriate ap3 for age. Pain: Complains of pain in throat Aggravated by swallowing. EENT: Reports pain when swallowing. Neuro: Level of Consciousness is awake, alert, obeys commands, Oriented to person, place, time, situation, Gait is steady, Speech is normal. Cardiovascular: Patient's skin is warm and dry. Respiratory: Airway is patent Respiratory effort is even, unlabored, Respiratory pattern is regular, symmetrical, Respiratory: Reports cough that is productive. Historical: - Allergies: 13:46 No Known Allergies; ap3 - Home Meds: 13:46 Wellbutrin SR Oral [Active]; Biktarvy oral [Active]; ap3 - PMHx: 13:46 Depressive disorder; HIV positive; ap3 - Immunization history:: Client reports receiving the 2nd dose of the Covid vaccine, Flu vaccine is up to date. - Social history:: Smoking status: Patient denies any tobacco usage or history of. Screenin:49 [facility] ED Fall Risk Assessment (Adult) History of falling in the last 3 months, ap3 including since admission No falls in past 3 months (0 pts). Abuse screen: Denies threats or abuse. Nutritional screening: No deficits noted. Tuberculosis screening: No symptoms or risk factors identified. Assessment: 15:37 General: Appears in no apparent distress. comfortable, Behavior is calm, cooperative. ss Neuro: Level of Consciousness is awake, alert, obeys commands, Oriented to person, place, time, situation. Respiratory: Airway is patent Respiratory effort is even, unlabored, Respiratory pattern is regular, symmetrical. Respiratory: Airway is patent Respiratory effort is even, unlabored, Respiratory pattern is regular, symmetrical. Derm: Skin is pink, warm \T\ dry. normal. Musculoskeletal: Circulation, motion, and sensation intact. Range of motion: intact in all extremities, Swelling absent. Vital Signs: 13:42 BP 146 / 98; Pulse 74; Resp 19; Temp 98.4(O); Pulse Ox 96% ; Weight 99.79 kg; ap3 ED Course: 13:16 Patient arrived in ED. mr 13:35 Salazar Malik PA is PHCP. merdeith 13:36 Mitchell Colorado DO is Attending Physician. [facility] 13:46 Triage completed. ap3 13:49 Arm band placed on right wrist. ap3 13:49 Patient has correct armband on for positive identification. ap3 13:54 Strep Sent. ap3 15:37 No provider procedures requiring assistance completed. Patient did not have IV access ss during this emergency room visit. Administered Medications: 13:54 Drug: Decadron (dexamethasone) 10 mg Route: IM; Site: right deltoid; ap3 15:40 Follow up: Response: No adverse reaction ss Medication: 13:49 VIS not applicable for this client. ap3 Outcome: 14:41 Discharge ordered by . jm 15:37 Discharged to home ambulatory. ss 15:37 Condition: good 15:37 Discharge instructions given to patient, family, Instructed on discharge instructions, follow up and referral plans. medication usage, Demonstrated understanding of instructions, follow-up care, medications. 15:40 Patient left the ED. ss Signatures: Salazar Malik PA PA jmm Rivera, Mary mr Jennifer Lomeli RN RN Marley Ley RN RN ap3
--- NOTE | 2022-07-17 14:42 | EDPHYS ---
Physician Documentation [facility] Name: Barry Mercedes Age: 32 yrs Sex: Male : 1990 Arrival Date: 07/17/2022 Time: 13:16 Bed IW1 Private MD: ED Physician Mitchell Colorado HPI: 07/17 13:42 This 32 yrs old Male presents to ER via Ambulatory with complaints of Cough, jmm Congestion, Sore Throat. 13:42 Onset: The symptoms/episode began/occurred gradually, 3 week(s) ago. Is a 32-year-old jmm male with history of depression, HIV the presents emerged part with complaints of sore throat, body aches. Patient states he has had cough congestion, sinus pain for the past 3 weeks as well. Denies vomiting. Denies any known infectious exposure. Historical: - Allergies: 13:46 No Known Allergies; ap3 - Home Meds: 13:46 Wellbutrin SR Oral [Active]; Biktarvy oral [Active]; ap3 - PMHx: 13:46 Depressive disorder; HIV positive; ap3 - Immunization history:: Client reports receiving the 2nd dose of the Covid vaccine, Flu vaccine is up to date. - Social history:: Smoking status: Patient denies any tobacco usage or history of. ROS: 13:42 Constitutional: Positive for body aches. jmm 13:42 ENT: Positive for sinus congestion, sore throat. 13:42 Respiratory: Positive for cough. 13:42 All other systems are negative. Exam: 13:42 Constitutional: This is a well developed, well nourished patient who is awake, alert, jmm and in no acute distress. Head/Face: atraumatic. Eyes: EOMI, no conjunctival erythema appreciated 13:42 Chest/axilla: Normal chest wall appearance and motion. Cardiovascular: Regular rate and rhythm. No edema appreciated Respiratory: Normal respirations, no respiratory distress appreciated Abdomen/GI: Non distended Back: Normal ROM Skin: General appearance color normal MS/ Extremity: Moves all extremities, no obvious deformities appreciated, no edema noted to the lower extremities Neuro: Awake and alert Psych: Behavior is normal, Mood is normal, Patient is cooperative and pleasant 13:42 ENT: Posterior pharynx: erythema, that is moderate. Vital Signs: 13:42 BP 146 / 98; Pulse 74; Resp 19; Temp 98.4(O); Pulse Ox 96% ; Weight 99.79 kg; ap3 MDM: 13:45 Patient medically screened. [facility] 14:38 Data reviewed: vital signs, nurses notes. [facility] 14:40 Data reviewed: vital signs, nurses notes. Counseling: I had a detailed discussion with meredith the patient and/or guardian regarding: the historical points, exam findings, and any diagnostic results supporting the discharge/admit diagnosis, lab results, the need for outpatient follow up, to return to the emergency department if symptoms worsen or persist or if there are any questions or concerns that arise at home. ED course: Patient is alert nontoxic in appearance in the ED. No signs respiratory distress. Patient advised follow-up PCP and otherwise given strict return precautions. Patient understood agrees plan of care peer. 07/17 13:45 Order name: Strep [facility] 07/17 14:25 Order name: Group A Streptococcus Rapid Sc; Complete Time: 14:31 EDMS Administered Medications: 13:54 Drug: Decadron (dexamethasone) 10 mg Route: IM; Site: right deltoid; ap3 15:40 Follow up: Response: No adverse reaction ss Disposition: 18:07 Co-signature as Attending Physician, Mitchell Colorado DO I was immediately available on-site ms3 in the Emergency Department for consultation in the care of the patient. Disposition Summary: 07/17/22 14:41 Discharge Ordered Location: Home [facility] Condition: Stable [facility] Diagnosis - Acute pharyngitis, unspecified [facility] Followup: [facility] - With: Private Physician - When: 2 - 3 days - Reason: Recheck today's complaints, Continuance of care, Re-evaluation by your physician Discharge Instructions: - Discharge Summary Sheet [facility] - Pharyngitis [facility] Forms: - Medication Reconciliation Form [facility] - Thank You Letter [facility] - Antibiotic Education [facility] - Prescription Opioid Use [facility] - Work release form rg4 Prescriptions: - cefdinir 300 mg Oral capsule - take 1 capsule by ORAL route every 12 hours for 10 days; 20 capsule; Refills: [facility] 0, Product Selection Permitted Signatures: Dispatcher [employer] EDMS Salazar Malik PA PA jmm Prokisch, Amanda RN RN ap3 Mitchell Colorado DO DO ms3 Smirch, Jennifer RN ss
[2022-07-17 16:11] VITALS: BP 146/98; TEMP 98.4; O2SAT 96
== END 2022-07-17 15:40 | disposition home or self-care (01) ==
LOC: ER 13:04
DX: J02.9 Acute pharyngitis, unspecified (principal); R05.9 Cough, unspecified; F32.A Depression, unspecified; Z21 Asymptomatic human immunodeficiency virus [HIV] infection status
CPT/HCPCS: 87070; 87081; J1100

== ENCOUNTER 2022-10-03 21:40 | Emergency (ER) | payer OTHER ==
--- OUTSIDE RECORDS SUMMARY | 2022-10-03 21:56 | XMS REPORT | Continuity of Care Document ---
:1990 [facility] Organization [facility] t Address [address] [facility] [address] [place] [id number] Care Team Providers Name Role Phone AlRadha Kadeem Primary Care Physician ROSALINA ZPEEDA Attending Clinician Unavailable MERY WALTON Attending Clinician Unavailable Brandin Grajeda RN Attending Clinician Unavailable Mery Walton MD Attending Clinician Lorrie Glover RN Attending Clinician Unavailable Danilo Ventura MA Attending Clinician Unavailable Annie Ortega LVN Attending Clinician Unavailable JOSEFINA WILDE Attending Clinician Unavailable TOO WALL Attending Clinician Unavailable Too Wall MD Attending Clinician Dillan Paalcio MD Attending Clinician Josefina Wilde MD Attending Clinician Awilda Aguilar MA Attending Clinician Unavailable [facility] Attending Clinician Unavailable Tony Rivero MD Attending Clinician TONY RIVERO Attending Clinician Unavailable ROBERTA COBURN Attending Clinician Unavailable Roberta Coburn MD Attending Clinician Visit, [facility] Id Nurse Attending Clinician Unavailable KEVIN SCHERER Attending Clinician Unavailable Kevin Scherer MD Attending Clinician GELA MORENO Attending Clinician Unavailable Gela Moreno MD Attending Clinician Vaccine, Gal [facility] Attending Clinician Unavailable Visits, [facility] Id Care Mgmt Attending Clinician Unavailable Cintia Trotter LVN Attending Clinician Unavailable FRANCIA MCRAE Attending Clinician Unavailable SHANTA WESTFALL Attending Clinician Unavailable Alex GARCIA, Lorrie Stanford Attending Clinician Unavailable Doctor Unassigned, [place] Attending Clinician Unavailable Visit, [facility] Dermatology Nurse Attending Clinician Unavailable Darrel [...] HIV -12 ity of infection infection 00:00: [address] Allergies, Adverse Reactions, Alerts Allergy Allergy Status Severity Reaction(s) Onset Inactive Treating Comm ents Source Name Type Date Date Clinician NO KNOWN Drug Active Univers ALLERGIE Class ity of S [facility] Social History Social Habit Start Date Stop Date Quantity Comments Source History of Cigarette Smoker Universi ty of tobacco use [facility] Alcohol intake 2022-09-06 2022-09-06 Current drinker Unive rsity of 00:00:00 00:00:00 of alcohol [facility] (finding) [place] Exposure to 2022-04-20 2022-04-30 Not sure University SARS-CoV-2 00:00:00 08:48:00 [facility] (event) [place] Tobacco use and 2020-04-21 2020-04-21 Smokeless tobacco Un iversity of exposure 00:00:00 00:00:00 non-user [facility] Sex Assigned At [birth year] Universit y of 00:00:00 00:00:00 [facility] Smoking Status Start Date Stop Date Source Occasional tobacco smoker 2020-04-21 00:00:00 Un iversity of [facility] Medications Ordered Filled Start Stop Current Ordering Indication Dosage Frequency Signature Comments Components Source Medication Medication Date Date Medication? Clinician (SIG) Name Name bictegrav-e 2022-0 Yes [id number] 1{tbl} Take 1 Univers mtricit-ten 4-22 tablet by ity of ofov ala 00:00: mouth in [place] (KTAR) 00 the morning. Branch mg tablet bictegrav-e 2022-0 Yes [id number] 1{tbl} Take 1 Univers mtricit-ten 4-22 tablet by ity of ofov ala 00:00: mouth in [place] (KTARV) 00 the morning. Branch mg tablet bictegrav-e 2022-0 Yes [id number] 1{tbl} Take 1 Univers mtricit-ten 4-22 tablet by ity of ofov ala 00:00: mouth in [place] (KTAR) 00 the morning. Branch mg tablet bictegrav-e 2022-0 Yes [id number] 1{tbl} Take 1 Univers mtricit-ten 4-22 tablet by ity of ofov ala 00:00: mouth in [place] (KTAR) the morning. Branch mg tablet bictegrav-e 2022-0 Yes [id number] 1{tbl} Take 1 Univers mtricit-ten 4-22 tablet by ity of ofov ala 00:00: mouth in [place] (KTAR) morning. Branch mg tablet metFORMIN 2023-0 Yes [id number] 500mg Take 1 Univers 500 mg 4-06 tablet by ity of tablet 00:00: mouth in [place] the Medical morning Branch and 1 tablet in the evening. Take with meals. metFORMIN 2023-0 Yes [id number] 500mg Take 1 Univers 500 mg 4-06 tablet by ity of tablet 00:00: mouth in [place] the Medical morning Branch and 1 tablet in the evening. Take with meals. metFORMIN 2023-0 Yes [id number] 500mg Take 1 Univers 500 mg 4-06 tablet by ity of tablet 00:00: mouth in [place] the Medical morning Branch and 1 tablet in the evening. Take with meals. metFORMIN 2023-0 Yes [id number] 500mg Take 1 Univers 500 mg 4-06 tablet by ity of tablet 00:00: mouth in [address] and 1 tablet in the evening. Take with meals. metFORMIN 3-0 Yes [id number] 500mg Take 1 Univers 500 mg 4-06 tablet by ity of tablet 00:00: mouth in [address] and 1 tablet in the evening. Take with meals. metFORMIN 2023-0 Yes [id number] 500mg Take 1 Univers 500 mg 4-06 tablet by ity of tablet 00:00: mouth in [address] [place] and 1 tablet in the evening. Take with meals. metFORMIN 2023-0 Yes [id number] 500mg Take 1 Univers 500 mg 4-06 tablet by ity of tablet 00:00: mouth in [address] morning [place] and 1 tablet in the evening. Take with meals. metFORMIN 3-0 Yes [id number] 500mg Take 1 Univers 500 mg 4-06 tablet by ity of tablet 00:00: mouth in [address] [place] and 1 tablet in the evening. Take with meals. metFORMIN 3-0 Yes [id number] 500mg Take 1 Univers 500 mg 4-06 tablet by ity of tablet 00:00: mouth in [address] and 1 tablet in the evening. Take with meals. metFORMIN 3-0 Yes [id number] 500mg Take 1 Univers 500 mg 4-06 tablet by ity of tablet 00:00: mouth in [address] and 1 tablet in the evening. Take with meals. metFORMIN 2022-0 Yes [id number] 500mg Take 1 Univers 500 mg 4-06 tablet by ity of tablet 00:00: mouth in [address] [place] and 1 tablet in the evening. Take with meals. metFORMIN 3-0 Yes [id number] 500mg Take 1 Univers 500 mg 4-06 tablet by ity of tablet 00:00: mouth in [address] and 1 tablet in the evening. Take with meals. buPROPion 2021-0 Yes [id number] 300mg Take 1 U nivers XL 300 mg 9-14 tablet by ity o f 24 hr 00:00: mouth in [facility] the . Branch ALPRAZolam 2021-0 Yes [id number] .5mg Take 1 U nivers 0.5 mg 9-14 tablet by ity of tablet 00:00: mouth in [place] 00 the Medical morning. Branch buPROPion 2021-0 Yes [id number] 300mg Take 1 U nivers XL 300 mg 9-14 tablet by ity o f 24 hr 00:00: mouth in [place] tablet 00 the Medical morning. Branch ALPRAZolam 2021-0 Yes [id number] .5mg Take 1 U nivers 0.5 mg 9-14 tablet by ity of tablet 00:00: mouth in [place] 00 the Medical morning. Branch buPROPion 2021-0 Yes [id number] 300mg Take 1 U nivers XL 300 mg 9-14 tablet by ity o f 24 hr 00:00: mouth in [place] tablet 00 the Medical morning. Branch ALPRAZolam 2021-0 Yes [id number] .5mg Take 1 U nivers 0.5 mg 9-14 tablet by ity of tablet 00:00: mouth in [place] 00 the Medical morning. Branch buPROPion 2021-0 Yes [id number] 300mg Take 1 U nivers XL 300 mg 9-14 tablet by ity o f 24 hr 00:00: mouth in [place] tablet 00 the Medical morning. Branch ALPRAZolam 2021-0 Yes [id number] .5mg Take 1 U nivers 0.5 mg 9-14 tablet by ity of tablet 00:00: mouth in [place] 00 the Medical morning. Branch buPROPion 2021-0 Yes [id number] 300mg Take 1 U nivers XL 300 mg 9-14 tablet by ity o f 24 hr 00:00: mouth in [place] tablet 00 the Medical morning. Branch ALPRAZolam 2-0 Yes [id number] .5mg Take 1 U nivers 0.5 mg 9-14 tablet by ity of tablet 00:00: mouth in [place] 00 the Medical morning. Branch buPROPion 2-0 Yes [id number] 300mg Take 1 U nivers XL 300 mg 9-14 tablet by ity o f 24 hr 00:00: mouth in [place] tablet 00 the Medical morning. Branch ALPRAZolam 2-0 Yes [id number] .5mg Take 1 U nivers 0.5 mg 9-14 tablet by ity of tablet 00:00: mouth in [place] 00 the Medical morning. Branch buPROPion 2-0 Yes [id number] 300mg Take 1 U nivers XL 300 mg 9-14 tablet by ity o f 24 hr 00:00: mouth in [place] tablet 00 the Medical morning. Branch ALPRAZolam 2-0 Yes [id number] .5mg Take 1 U nivers 0.5 mg 9-14 tablet by ity of tablet 00:00: mouth in [place] 00 the Medical morning. Branch buPROPion 2-0 Yes [id number] 300mg Take 1 U nivers XL 300 mg 9-14 tablet by ity o f 24 hr 00:00: mouth in [place] tablet 00 the Medical morning. Branch buPROPion 2-0 Yes [id number] 300mg Take 1 U nivers XL 300 mg 9-14 tablet by ity o f 24 hr 00:00: mouth in [place] tablet 00 the Medical morning. Branch buPROPion 2-0 Yes [id number] 300mg Take 1 U nivers XL 300 mg 9-14 tablet by ity o f 24 hr 00:00: mouth in [place] tablet 00 the Medical morning. Branch buPROPion 2-0 Yes [id number] 300mg Take 1 U nivers XL 300 mg 9-14 tablet by ity o f 24 hr 00:00: mouth in [place] tablet 00 the Medical morning. Branch buPROPion 2-0 Yes [id number] 300mg Take 1 U nivers XL 300 mg 9-14 tablet by ity o f 24 hr 00:00: mouth in [place] tablet 00 the Medical morning. Branch buPROPion 2-0 Yes [id number] 300mg Take 1 U nivers XL 300 mg 9-14 tablet by ity o f 24 hr 00:00: mouth in [place] tablet 00 the Medical morning. Branch buPROPion 2-0 Yes [id number] 300mg Take 1 U nivers XL 300 mg 9-14 tablet by ity o f 24 hr 00:00: mouth in [place] tablet 00 the Medical morning. Branch buPROPion 2-0 Yes [id number] 300mg Take 1 U nivers XL 300 mg 9-14 tablet by ity o f 24 hr 00:00: mouth in [place] tablet 00 the Medical morning. Branch buPROPion 2022-0 Yes [id number] 300mg Take 1 U nivers XL 300 mg 9-14 tablet by ity o f 24 hr 00:00: mouth in [place] tablet 00 the Medical morning. Branch buPROPion 2022-0 Yes [id number] 300mg Take 1 U nivers XL 300 mg 9-14 tablet by ity o f 24 hr 00:00: mouth in [place] tablet 00 the Medical morning. Branch buPROPion 2-0 Yes [id number] 300mg Take 1 U nivers XL 300 mg 9-14 tablet by ity o f 24 hr 00:00: mouth in [place] tablet 00 the Medical morning. Branch buPROPion 2022-0 Yes [id number] 300mg Take 1 U nivers XL 300 mg 9-14 tablet by ity o f 24 hr 00:00: mouth in [place] tablet 00 the Medical morning. Branch buPROPion 2-0 Yes [id number] 300mg Take 1 U nivers XL 300 mg 9-14 tablet by ity o f 24 hr 00:00: mouth in [place] tablet 00 the Medical morning. Branch buPROPion 2-0 Yes [id number] 300mg Take 1 U nivers XL 300 mg 9-14 tablet by ity o f 24 hr 00:00: mouth in [place] tablet 00 the Medical morning. Branch buPROPion 2-0 Yes [id number] 300mg Take 1 U nivers XL 300 mg 9-14 tablet by ity o f 24 hr 00:00: mouth in [place] tablet 00 the Medical morning. Branch buPROPion 2-0 Yes [id number] 300mg Take 1 U nivers XL 300 mg 9-14 tablet by ity o f 24 hr 00:00: mouth in [place] tablet 00 the Medical morning. Branch buPROPion 2-0 Yes [id number] 300mg Take 1 U nivers XL 300 mg 9-14 tablet by ity o f 24 hr 00:00: mouth in [place] tablet 00 the Medical morning. Branch buPROPion 2-0 Yes [id number] 300mg Take 1 U nivers XL 300 mg 9-14 tablet by ity o f 24 hr 00:00: mouth in [place] tablet 00 the Medical morning. Branch buPROPion 2-0 Yes [id number] 300mg Take 1 U nivers XL 300 mg 9-14 tablet by ity o f 24 hr 00:00: mouth in [place] tablet 00 the Medical morning. Branch buPROPion 2022-0 Yes [id number] 300mg Take 1 U nivers XL 300 mg 9-14 tablet by ity o f 24 hr 00:00: mouth in [place] tablet 00 the Medical morning. Branch buPROPion 2021-0 Yes [id number] 300mg Take 1 U nivers XL 300 mg 9-14 tablet by ity o f 24 hr 00:00: mouth in [place] tablet 00 the Medical morning. Branch buPROPion 2021-0 Yes [id number] 300mg Take 1 U nivers XL 300 mg 9-14 tablet by ity o f 24 hr 00:00: mouth in [place] tablet 00 the Medical morning. Branch buPROPion 2021-0 Yes [id number] 300mg Take 1 U nivers XL 300 mg 9-14 tablet by ity o f 24 hr 00:00: mouth in [place] tablet 00 the Medical morning. Branch buPROPion 2021-0 Yes [id number] 300mg Take 1 U nivers XL 300 mg 9-14 tablet by ity o f 24 hr 00:00: mouth in [place] tablet 00 the Medical morning. Branch buPROPion 2021-0 Yes [id number] 300mg Take 1 U nivers XL 300 mg 9-14 tablet by ity o f 24 hr 00:00: mouth in [place] tablet 00 the Medical morning. Branch buPROPion 2021-0 Yes [id number] 300mg Take 1 U nivers XL 300 mg 9-14 tablet by ity o f 24 hr 00:00: mouth in [place] tablet 00 the Medical morning. Branch buPROPion 2021-0 Yes [id number] 300mg Take 1 U nivers XL 300 mg 9-14 tablet by ity o f 24 hr 00:00: mouth in [place] tablet 00 the Medical morning. Branch buPROPion 2021-0 Yes [id number] 300mg Take 1 U nivers XL 300 mg 9-14 tablet by ity o f 24 hr 00:00: mouth in [place] tablet 00 the Medical morning. Branch buPROPion 2021-0 Yes [id number] 300mg Take 1 U nivers XL 300 mg 9-14 tablet by ity o f 24 hr 00:00: mouth in [place] tablet 00 the Medical morning. Branch ALPRAZolam 2021-2021- No [id number] .5mg Take 1 Univers 0.5 mg 9-14 10-27 tablet by ity of tablet 00:00: 00:00 mouth in [place] 00 :00 the Medical morning. Branch ALPRAZolam 2021-0 2021- No [id number] .5mg Take 1 Univers 0.5 mg 9-14 10-27 tablet by ity of tablet 00:00: 00:00 mouth in [place] 00 :00 the Medical morning. Branch bictegrav-e Yes [id number] 1{tbl} Take 1 Univers mtricit-ten 9-13 tablet by ity of ofov ala 00:00: mouth [place] (BIKTARVY) 00 daily. Medical 50-200-25 Branch mg tablet bictegrav-e Yes [id number] 1{tbl} Take 1 Univers mtricit-ten 9-13 tablet by ity of ofov ala 00:00: mouth [place] (BIKTARVY) 00 daily. Medical 50-200-25 Branch mg tablet bictegrav-e Yes [id number] 1{tbl} Take 1 Univers mtricit-ten 9-13 tablet by ity of ofov ala 00:00: mouth [place] (BIKTARVY) 00 daily. Medical 50-200-25 Branch mg tablet bictegrav-e Yes [id number] 1{tbl} Take 1 Univers mtricit-ten 9-13 tablet by ity of ofov ala 00:00: mouth [place] (BIKTARVY) 00 daily. Medical 50-200-25 Branch mg tablet bictegrav-e Yes [id number] 1{tbl} Take 1 Univers mtricit-ten 9-13 tablet by ity of ofov ala 00:00: mouth [place] (BIKTARVY) 00 daily. Medical 50-200-25 Branch mg tablet bictegrav-e Yes [id number] 1{tbl} Take 1 Univers mtricit-ten 9-13 tablet by ity of ofov ala 00:00: mouth [place] (BIKTARVY) 00 daily. Medical 50-200-25 Branch mg tablet bictegrav-e Yes [id number] 1{tbl} Take 1 Univers mtricit-ten 9-13 tablet by ity of ofov ala 00:00: mouth [place] (BIKTARVY) 00 daily. Medical 50-200-25 Branch mg tablet bictegrav-e 0 Yes [id number] 1{tbl} Take 1 Univers mtricit-ten 9-13 tablet by ity of ofov ala 00:00: mouth [place] (BIKTARVY) 00 daily. Medical 50-200-25 Branch mg tablet bictegrav-e Yes [id number] 1{tbl} Take 1 Univers mtricit-ten 9-13 tablet by ity of ofov ala 00:00: mouth [place] (BIKTARVY) 00 daily. Medical 50-200-25 Branch mg tablet bictegrav-e Yes [id number] 1{tbl} Take 1 Univers mtricit-ten 9-13 tablet by ity of ofov ala 00:00: mouth [place] (BIKTARVY) 00 daily. Medical 50-200-25 Branch mg tablet bictegrav-e Yes [id number] 1{tbl} Take 1 Univers mtricit-ten 9-13 tablet by ity of ofov ala 00:00: mouth [place] (BIKTARVY) 00 daily. Medical 50-200-25 Branch mg tablet bictegrav-e Yes [id number] 1{tbl} Take 1 Univers mtricit-ten 9-13 tablet by ity of ofov ala 00:00: mouth [place] (BIKTARVY) 00 daily. Medical 50-200-25 Branch mg tablet bictegrav-e Yes [id number] 1{tbl} Take 1 Univers mtricit-ten 9-13 tablet by ity of ofov ala 00:00: mouth [place] (BIKTARVY) 00 daily. Medical 50-200-25 Branch mg tablet bictegrav-e Yes [id number] 1{tbl} Take 1 Univers mtricit-ten 9-13 tablet by ity of ofov ala 00:00: mouth [place] (BIKTARVY) 00 daily. Medical 50-200-25 Branch mg tablet bictegrav-e 2021-0 Yes [id number] 1{tbl} Take 1 Univers mtricit-ten 9-13 tablet by ity of ofov ala 00:00: mouth [place] (BIKTARVY) 00 daily. Medical 50-200-25 Branch mg tablet bictegrav-e 0 Yes [id number] 1{tbl} Take 1 Univers mtricit-ten 9-13 tablet by ity of ofov ala 00:00: mouth [place] (BIKTARVY) 00 daily. Medical 50-200-25 Branch mg tablet bictegrav-e Yes [id number] 1{tbl} Take 1 Univers mtricit-ten 9-13 tablet by ity of ofov ala 00:00: mouth [place] (BIKTARVY) 00 daily. Medical 50-200-25 Branch mg tablet bictegrav-e Yes [id number] 1{tbl} Take 1 Univers mtricit-ten 9-13 tablet by ity of ofov ala 00:00: mouth [place] (BIKTARVY) 00 daily. Medical 50-200-25 Branch mg tablet bictegrav-e Yes [id number] 1{tbl} Take 1 Univers mtricit-ten 9-13 tablet by ity of ofov ala 00:00: mouth [place] (BIKTARVY) 00 daily. Medical 50-200-25 Branch mg tablet bictegrav-e Yes [id number] 1{tbl} Take 1 Univers mtricit-ten 9-13 tablet by ity of ofov ala 00:00: mouth [place] (BIKTARVY) 00 daily. Medical 50-200-25 Branch mg tablet bictegrav-e Yes [id number] 1{tbl} Take 1 Univers mtricit-ten 9-13 tablet by ity of ofov ala 00:00: mouth [place] (BIKTARVY) 00 daily. Medical 50-200-25 Branch mg tablet bictegrav-e Yes [id number] 1{tbl} Take 1 Univers mtricit-ten 9-13 tablet by ity of ofov ala 00:00: mouth [place] (BIKTARVY) 00 daily. Medical 50-200-25 Branch mg tablet bictegrav-e Yes [id number] 1{tbl} Take 1 Univers mtricit-ten 9-13 tablet by ity of ofov ala 00:00: mouth [place] (BIKTARVY) 00 daily. Medical 50-200-25 Branch mg tablet bictegrav-e 0 Yes [id number] 1{tbl} Take 1 Univers mtricit-ten 9-13 tablet by ity of ofov ala 00:00: mouth [place] (BIKTARVY) 00 daily. Medical 50-200-25 Branch mg tablet bictegrav-e Yes [id number] 1{tbl} Take 1 Univers mtricit-ten 9-13 tablet by ity of [facility] ala 00:00: mouth [place] (BIKTARVY) 00 daily. Medical 50-200-25 Branch mg tablet bictegrav-e Yes [id number] 1{tbl} Take 1 Univers mtricit-ten 9-13 tablet by ity of [facility] ala 00:00: mouth [place] (BIKTARVY) 00 daily. Medical 50-200-25 Branch mg tablet bictegrav-e Yes [id number] 1{tbl} Take 1 Univers mtricit-ten 9-13 tablet by ity of [facility] 00:00: mouth [place] (BIKTARVY) 00 daily. Medical 50-200-25 Branch mg tablet bictegrav-e Yes [id number] 1{tbl} Take 1 Univers mtricit-ten 9-13 tablet by ity of [facility] ala 00:00: mouth [place] (BIKTARVY) 00 daily. Medical 50-200-25 Branch mg tablet bictegrav-e Yes [id number] 1{tbl} Take 1 Univers mtricit-ten 9-13 tablet by ity of [facility] ala 00:00: mouth [place] (BIKTARVY) 00 daily. Medical 50-200-25 Branch mg tablet bictegrav-e Yes [id number] 1{tbl} Take 1 Univers mtricit-ten 9-13 tablet by ity of of ala 00:00: mouth [place] (BIKTARVY) 00 daily. Medical 50-200-25 Branch mg tablet bictegrav-e 2022- No [id number] 1{tbl} Take 1 Univers mtricit-ten 9-13 -23 tablet by it y of ofov ala 00:00: 01:15 mouth [place] (BIKTARVY) 00 :00 daily. Medical 50-200-25 Branch mg tablet bictegrav-e 2022- No [id number] 1{tbl} Take 1 Univers mtricit-ten 9-13 -23 tablet by it y of ofov ala 00:00: 01:15 mouth [place] (BIKTARVY) 00 :00 daily. Medical 50-200-25 Branch mg tablet bictegrav-e 2021-2022- No [id number] 1{tbl} Take 1 Univers mtricit-ten 02-1323 tablet by it y of ofov ala 00:00: 01:15 mouth [place] (BIKTARVY) 00 :00 daily. Medical 50-200-25 Branch mg tablet bictegrav-e 2021-2022- No [id number] 1{tbl} Take 1 Univers mtricit-ten 02-13 tablet by it y of ofov ala 00:00: 01:15 mouth [place] (BIKTARVY) 00 :00 daily. Medical 50-200-25 Branch mg tablet bictegrav-e 2021-2022- No [id number] 1{tbl} Take 1 Univers mtricit-ten 02-13 tablet by it y of ofov ala 00:00: 01:15 mouth [place] (BIKTARVY) 00 :00 daily. Medical 50-200-25 Branch mg tablet BUPROPION 2021-0 Yes [id number] TAKE ONE Univers XL 300 mg 8-09 TABLET BY ity o f 24 hr 00:00: MOUTH [place] tablet 00 DAILY Medical Branch BUPROPION 2021-0 Yes [id number] TAKE ONE Univers XL 300 mg 8-09 TABLET BY ity o f 24 hr 00:00: MOUTH [place] tablet 00 DAILY Medical Branch BUPROPION 2021-0 2022- No [id number] TAKE ONE Univers XL 300 mg 8-09 09-14 TABLET BY ity of 24 hr 00:00: 00:00 MOUTH [place] tablet 00 :00 DAILY Medical Branch ALPRAZolam 2021-0 Yes [id number] .5mg Take 1 U nivers 0.5 mg 6-29 tablet by ity of tablet 00:00: mouth [place] 00 daily. Medical Branch ALPRAZolam 2021-0 Yes [id number] .5mg Take 1 U nivers 0.5 mg 6-29 tablet by ity of tablet 00:00: mouth [place] 00 daily. Medical Branch ALPRAZolam 2021-0 Yes [id number] .5mg Take 1 U nivers 0.5 mg 6-29 tablet by ity of tablet 00:00: mouth [place] 00 daily. Medical Branch ALPRAZolam 2021- No [id number] .5mg Take 1 Univers 0.5 mg 6-29 -14 tablet by ity of tablet 00:00: 00:00 mouth [place] 00 :00 daily. Medical Branch buPROPion 2021- No [id number] 300mg Take 1 Univers XL 300 mg 5- 08-09 tablet by ity of 24 hr 00:00: 00:00 mouth [place] tablet 00 :00 daily. Medical Branch imiquimod 5 2020-06 Yes [id number] 1{packe Apply 1 Univers % cream 2-22 t} Each to ity of 00:00: [facility] [place] 00 every Medical Saturday, Branch Saturday and Saturday. imiquimod 5 2020-06 Yes [id number] 1{packe Apply 1 Univers % cream 2-22 t} Each to ity of 00:00: [facility] [place] 00 every Medical Saturday, Branch Saturday and Saturday. imiquimod 5 2020-06 Yes [id number] 1{packe Apply 1 Univers % cream 2-22 t} Each to ity of 00:00: [facility] [place] 00 every Medical Saturday, Branch Saturday and Saturday. imiquimod 5 2020-06 Yes [id number] 1{packe Apply 1 Univers % cream 2-22 t} Each to ity of 00:00: [facility] [place] 00 every Medical Saturday, Branch Saturday and Saturday. imiquimod 5 2020-06 Yes [id number] 1{packe Apply 1 Univers % cream 2-22 t} Each to ity of 00:00: area() [place] 00 every Medical Saturday, Branch Saturday and Saturday. imiquimod 5 2020-06 Yes [id number] 1{packe Apply 1 Univers % cream 2-22 t} Each to ity of 00:00: [facility] [place] 00 every Medical Saturday, Branch Saturday and Saturday. imiquimod 5 2020-06 Yes [id number] 1{packe Apply 1 Univers % cream 2-22 t} Each to ity of 00:00: [facility] [place] 00 every Medical Saturday, Branch Saturday and Saturday. imiquimod 2020-06 Yes [id number] 1{packe Apply 1 Univers % cream 2-22 t} Each to ity of 00:00: [facility] [place] 00 every Medical Saturday, Branch Saturday and Saturday. imiquimod 2020-06 Yes [id number] 1{packe Apply 1 Univers % cream 2-22 t} Each to ity of 00:00: [facility] [place] 00 every Medical Saturday, Branch Saturday and Saturday. imiquimod 2020-06 Yes [id number] 1{packe Apply 1 Univers % cream 2-22 t} Each to ity of 00:00: [facility] 00 every Medical Saturday, Branch Saturday and Saturday. imiquimod 2020-06 Yes [id number] 1{packe Apply 1 Univers % cream 2-22 t} Each to ity of 00:00: [facility] 00 every Medical Saturday, Branch Saturday and Saturday. imiquimod 2020-06 Yes [id number] 1{packe Apply 1 Univers % cream 2-22 t} Each to ity of 00:00: [facility] 00 every Medical Saturday, Branch Saturday and Saturday. imiquimod 2020-06 Yes [id number] 1{packe Apply 1 Univers % cream 2-22 t} Each to ity of 00:00: [facility] 00 every Medical Saturday, Branch Saturday and Saturday. imiquimod 2020-06 Yes [id number] 1{packe Apply 1 Univers % cream 2-22 t} Each to ity of 00:00: [facility] [place] 00 every Medical Saturday, Branch Saturday and Saturday. imiquimod 2020-06 Yes [id number] 1{packe Apply 1 Univers % cream 2-22 t} Each to ity of 00:00: [facility] [place] 00 every Medical Saturday, Branch Saturday and Saturday. imiquimod 2020-06 Yes [id number] 1{packe Apply 1 Univers % cream 2-22 t} Each to ity of 00:00: [facility] [place] 00 every Medical Saturday, Branch Saturday and Saturday. imiquimod 2020-06 Yes [id number] 1{packe Apply 1 Univers % cream 2-22 t} Each to ity of 00:00: [facility] [place] 00 every Medical Saturday, Branch Saturday and Saturday. imiquimod 5 2020-06 Yes [id number] 1{packe Apply 1 Univers % cream 2-22 t} Each to ity of 00:00: [facility] [place] 00 every Medical Saturday, Branch Saturday and Saturday. imiquimod 5 2020-06 Yes [id number] 1{packe Apply 1 Univers % cream 2-22 t} Each to ity of 00:00: [facility] [place] 00 every Medical Saturday, Branch Saturday and Saturday. imiquimod 2020-06 Yes [id number] 1{packe Apply 1 Univers % cream 2-22 t} Each to ity of 00:00: [facility] 00 every Medical Saturday, Branch Saturday and Saturday. imiquimod 2020-06 Yes [id number] 1{packe Apply 1 [facility] % cream 2-22 t} Each to ity of 00:00: [facility] 00 every Medical Saturday, Branch Saturday and Saturday. imiquimod 2020-06 Yes [id number] 1{packe Apply 1 Univers % cream 2-22 t} Each to ity of 00:00: [facility] 00 every Medical Saturday, Branch Saturday and Saturday. imiquimod 2020-06 Yes [id number] 1{packe Apply 1 Univers % cream 2-22 t} Each to ity of 00:00: [facility] [place] 00 every Medical Saturday, Branch Saturday and Saturday. imiquimod 2020-06 Yes [id number] 1{packe Apply 1 Univers % cream 2-22 t} Each to ity of 00:00: [facility] [place] 00 every Medical Saturday, Branch Saturday and Saturday. imiquimod 5 2020-06 Yes [id number] 1{packe Apply 1 Univers % cream 2-22 t} Each to ity of 00:00: [facility] 00 every Medical Saturday, Branch Saturday and Saturday. imiquimod 5 2020-06 Yes [id number] 1{packe Apply 1 [facility] % cream 2-22 t} Each to ity of 00:00: [facility] [place] 00 every Medical Saturday, Branch Saturday and Saturday. imiquimod 5 2020-06 Yes [id number] 1{packe Apply 1 [facility] % cream 2-22 t} Each to ity of 00:00: [facility] [place] 00 every Medical Saturday, Branch Saturday and Saturday. imiquimod 5 2020-06 Yes [id number] 1{packe Apply 1 [facility] % cream 2-22 t} Each to ity of 00:00: [facility] [place] 00 every Medical Saturday, Branch Saturday and Saturday. imiquimod 5 2020-06 Yes [id number] 1{packe Apply 1 [facility] % cream 2-22 t} Each to ity of 00:00: [facility] 00 every Medical Saturday, Branch Saturday and Saturday. imiquimod 2020-06 Yes [id number] 1{packe Apply 1 Univers % cream 2-22 t} Each to ity of 00:00: [facility] 00 every Medical Saturday, Branch Saturday and Saturday. imiquimod 5 2020-06 Yes [id number] 1{packe Apply 1 [facility] % cream 2-22 t} Each to ity of 00:00: [facility] 00 every Medical Saturday, Branch Saturday and Saturday. imiquimod 2020-06 Yes [id number] 1{packe Apply 1 [facility] % cream 2-22 t} Each to ity of 00:00: [facility] 00 every Medical Saturday, Branch Saturday and Saturday. imiquimod 5 2020-06 Yes [id number] 1{packe Apply 1 [facility] % cream 2-22 t} Each to ity of 00:00: [facility] [place] 00 every Medical Saturday, Branch Saturday and Saturday. imiquimod 5 2020-06 Yes [id number] 1{packe Apply 1 [facility] % cream 2-22 t} Each to ity of 00:00: [facility] 00 every Medical Saturday, Branch Saturday and Saturday. imiquimod 5 2020-06 Yes [id number] 1{packe Apply 1 [facility] % cream 2-22 t} Each to ity of 00:00: area(s) [place] 00 every Medical Saturday, Branch Saturday and Saturday. imiquimod 2020-06 Yes [id number] 1{packe Apply 1 Univers % cream 2-22 t} Each to ity of 00:00: area(s) [place] 00 every Medical Saturday, Branch Saturday and Saturday. imiquimod 2020-06 Yes [id number] 1{packe Apply 1 [facility] % cream 2-22 t} Each to ity of 00:00: area(s) [place] 00 every Medical Saturday, Branch Saturday and Saturday. imiquimod 2020-06 Yes [id number] 1{packe Apply 1 [facility] % cream 2-22 t} Each to ity of 00:00: area(s) [place] 00 every Medical Saturday, Branch Saturday and Saturday. imiquimod 2020-06 Yes [id number] 1{packe Apply 1 [facility] % cream 2-22 t} Each to ity of 00:00: area(s) [place] 00 every Medical Saturday, Branch Saturday and Saturday. Lidocaine 5 2020-06 Yes [id number] Apply to Univers % cream 2-21 area(s) ity of 00:00: daily. Medical Branch silver 2020-06 Yes [id number] Apply to [facility] sulfADIAZIN 2-21 area(s) ity o f E 00:00: daily. [place] (SILVADENE) Medical 1 % cream Branch Lidocaine 5 2020-06 Yes [id number] Apply to Univers % cream 2-21 area(s) ity of 00:00: daily. Medical Branch silver 2020-06 Yes [id number] Apply to [facility] sulfADIAZIN 2-21 area(s) ity o f E 00:00: daily. [place] (SILVADENE) Medical 1 % cream Branch Lidocaine 5 2020-06 Yes [id number] Apply to Univers % cream 2-21 area(s) ity of 00:00: daily. Medical Branch silver 2020-06 Yes [id number] Apply to [facility] sulfADIAZIN 2-21 area(s) ity o f E 00:00: daily. [place] (SILVADENE) 00 Medical 1 % cream Branch Lidocaine 5 2020-06 Yes [id number] Apply to Univers % cream 2-21 area(s) ity of 00:00: daily. Medical Branch silver 2020-06 Yes [id number] Apply to [facility] sulfADIAZIN 2-21 area(s) ity o f E 00:00: daily. [place] (SILVADENE) Medical 1 % cream Branch Lidocaine 5 2020-06 Yes [id number] Apply to Univers % cream 2-21 area(s) ity of 00:00: daily. [place] [facility] silver 2020-06 Yes [id number] Apply to [facility] sulfADIAZIN 2-21 area(s) ity o f E 00:00: daily. [place] (SILVADENE) Medical 1 % cream Branch Lidocaine 5 2020-06 Yes [id number] Apply to Univers % cream 2-21 area(s) ity of 00:00: daily. [place] [facility] silver 2020-06 Yes [id number] Apply to [facility] sulfADIAZIN 2-21 area(s) ity o f E 00:00: daily. [place] (SILVADENE) Medical 1 % cream Branch Lidocaine 5 2020-06 Yes [id number] Apply to Univers % cream 2-21 area(s) ity of 00:00: daily. [place] [facility] silver 2020-06 Yes [id number] Apply to [facility] sulfADIAZIN 2-21 area(s) ity o f E 00:00: daily. [place] (SILVADENE) Medical 1 % cream Branch Lidocaine 5 2020-06 Yes [id number] Apply to Univers % cream 2-21 area(s) ity of 00:00: daily. [place] [facility] silver 2020-06 Yes [id number] Apply to [facility] sulfADIAZIN 2-21 area(s) ity o f E 00:00: daily. [place] (SILVADENE) 00 Medical 1 % cream Branch Lidocaine 5 2020-06 Yes [id number] Apply to Univers % cream 2-21 area(s) ity of 00:00: daily. [place] [facility] Branch silver 2020-06 Yes [id number] Apply to [facility] sulfADIAZIN 2-21 area(s) ity o f E 00:00: daily. [place] (SILVADENE) Medical 1 % cream Branch Lidocaine 5 2020-06 Yes [id number] Apply to Univers % cream 2-21 area(s) ity of 00:00: daily. Medical Branch silver 2020-06 Yes [id number] Apply to [facility] sulfADIAZIN 2-21 area(s) ity o f E 00:00: daily. [place] (SILVADENE) Medical 1 % cream Branch Lidocaine 5 2020-06 Yes [id number] Apply to Univers % cream 2-21 area(s) ity of 00:00: daily. [place] [facility] Branch silver 2020-06 Yes [id number] Apply to [facility] sulfADIAZIN 2-21 area(s) ity o f E 00:00: daily. [place] (SILVADENE) Medical 1 % cream Branch Lidocaine 5 2020-06 Yes [id number] Apply to Univers % cream 2-21 area(s) ity of 00:00: daily. [place] [facility] silver 2020-06 Yes [id number] Apply to [facility] sulfADIAZIN 2-21 area(s) ity o f E 00:00: daily. [place] (SILVADENE) Medical 1 % cream Branch Lidocaine 5 2020-06 Yes [id number] Apply to Univers % cream 2-21 area(s) ity of 00:00: daily. [place] [facility] Branch silver 2020-06 Yes [id number] Apply to [facility] sulfADIAZIN 2-21 area(s) ity o f E 00:00: daily. [place] (SILVADENE) Medical 1 % cream Branch Lidocaine 5 2020-06 Yes [id number] Apply to Univers % cream 2-21 area(s) ity of 00:00: daily. [place] [facility] Branch silver 2020-06 Yes [id number] Apply to [facility] sulfADIAZIN 2-21 area(s) ity o f E 00:00: daily. [place] (SILVADENE) 00 Medical 1 % cream Branch Lidocaine 5 2020-06 Yes [id number] Apply to Univers % cream 2-21 area(s) ity of 00:00: daily. [place] [facility] silver 2020-06 Yes [id number] Apply to [facility] sulfADIAZIN 2-21 area(s) ity o f E 00:00: daily. [place] (SILVADENE) Medical 1 % cream Branch Lidocaine 5 2020-06 Yes [id number] Apply to Univers % cream 2-21 area(s) ity of 00:00: daily. [place] [facility] silver 2020-06 Yes [id number] Apply to [facility] sulfADIAZIN 2-21 area(s) ity o f E 00:00: daily. [place] (SILVADENE) Medical 1 % cream Branch Lidocaine 5 2020-06 Yes [id number] Apply to Univers % cream 2-21 area(s) ity of 00:00: daily. [place] [facility] Branch silver 2020-06 Yes [id number] Apply to [facility] sulfADIAZIN 2-21 area(s) ity o f E 00:00: daily. [place] (SILVADENE) Medical 1 % cream Branch Lidocaine 5 2020-06 Yes [id number] Apply to Univers % cream 2-21 area(s) ity of 00:00: daily. [place] [facility] silver 2020-06 Yes [id number] Apply to [facility] sulfADIAZIN 2-21 area(s) ity o f E 00:00: daily. [place] (SILVADENE) Medical 1 % cream Branch Lidocaine 5 2020-06 Yes [id number] Apply to Univers % cream 2-21 area(s) ity of 00:00: daily. [place] [facility] silver 2020-06 Yes [id number] Apply to [facility] sulfADIAZIN 2-21 area(s) ity o f E 00:00: daily. [place] (SILVADENE) Medical 1 % cream Branch Lidocaine 5 2020-06 Yes [id number] Apply to Univers % cream 2-21 area(s) ity of 00:00: daily. [place] [facility] Branch silver 2020-06 Yes [id number] Apply to [facility] sulfADIAZIN 2-21 area(s) ity o f E 00:00: daily. [place] (SILVADENE) 00 Medical 1 % cream Branch Lidocaine 5 2020-06 Yes [id number] Apply to Univers % cream 2-21 area(s) ity of 00:00: daily. [place] [facility] Branch silver 2020-06 Yes [id number] Apply to [facility] sulfADIAZIN 2-21 area(s) ity o f E 00:00: daily. [place] (SILVADENE) Medical 1 % cream Branch Lidocaine 5 2020-06 Yes [id number] Apply to Univers % cream 2-21 area(s) ity of 00:00: daily. [place] [facility] silver 2020-06 Yes [id number] Apply to [facility] sulfADIAZIN 2-21 area(s) ity o f E 00:00: daily. [place] (SILVADENE) Medical 1 % cream Branch Lidocaine 5 2020-06 Yes [id number] Apply to Univers % cream 2-21 area(s) ity of 00:00: daily. [place] [facility] Branch silver 2020-06 Yes [id number] Apply to [facility] sulfADIAZIN 2-21 area(s) ity o f E 00:00: daily. [place] (SILVADENE) Medical 1 % cream Branch Lidocaine 5 2020-06 Yes [id number] Apply to Univers % cream 2-21 area(s) ity of 00:00: daily. [place] [facility] silver 2020-06 Yes [id number] Apply to [facility] sulfADIAZIN 2-21 area(s) ity o f E 00:00: daily. [place] (SILVADENE) Medical 1 % cream Branch Lidocaine 5 2020-06 Yes [id number] Apply to Univers % cream 2-21 area(s) ity of 00:00: daily. [place] [facility] silver 2020-06 Yes [id number] Apply to [facility] sulfADIAZIN 2-21 area(s) ity o f E 00:00: daily. [place] (SILVADENE) 00 Medical 1 % cream Branch Lidocaine 5 2020-06 Yes [id number] Apply to Univers % cream 2-21 area(s) ity of 00:00: daily. [place] [facility] silver 2020-06 Yes [id number] Apply to [facility] sulfADIAZIN 2-21 area(s) ity o f E 00:00: daily. [place] (SILVADENE) 00 Medical 1 % cream Branch Lidocaine 5 2020-06 Yes [id number] Apply to Univers % cream 2-21 area(s) ity of 00:00: daily. [place] [facility] silver 2020-06 Yes [id number] Apply to [facility] sulfADIAZIN 2-21 area(s) ity o f E 00:00: daily. [place] (SILVADENE) Medical 1 % cream Branch Lidocaine 5 2020-06 Yes [id number] Apply to Univers % cream 2-21 area(s) ity of 00:00: daily. [place] [facility] silver 2020-06 Yes [id number] Apply to [facility] sulfADIAZIN 2-21 area(s) ity o f E 00:00: daily. [place] (SILVADENE) Medical 1 % cream Branch Lidocaine 5 2020-06 Yes [id number] Apply to Univers % cream 2-21 area(s) ity of 00:00: daily. [place] [facility] silver 2020-06 Yes [id number] Apply to [facility] sulfADIAZIN 2-21 area(s) ity o f E 00:00: daily. [place] (SILVADENE) Medical 1 % cream Branch Lidocaine 5 2020-06 Yes [id number] Apply to Univers % cream 2-21 area(s) ity of 00:00: daily. [place] [facility] silver 2020-06 Yes [id number] Apply to [facility] sulfADIAZIN 2-21 area(s) ity o f E 00:00: daily. [place] (SILVADENE) Medical 1 % cream Branch Lidocaine 5 2020-06 Yes [id number] Apply to Univers % cream 2-21 area(s) ity of 00:00: daily. [place] [facility] silver 2020-06 Yes [id number] Apply to [facility] sulfADIAZIN 2-21 area(s) ity o f E 00:00: daily. [place] (SILVADENE) 00 Medical 1 % cream Branch Lidocaine 5 2020-06 Yes [id number] Apply to Univers % cream 2-21 area(s) ity of 00:00: daily. [place] [facility] silver 2020-06 Yes [id number] Apply to [facility] sulfADIAZIN 2-21 area(s) ity o f E 00:00: daily. [place] (SILVADENE) Medical 1 % cream Branch Lidocaine 5 2020-06 Yes [id number] Apply to Univers % cream 2-21 area(s) ity of 00:00: daily. [place] [facility] silver 2020-06 Yes [id number] Apply to [facility] sulfADIAZIN 2-21 area(s) ity o f E 00:00: daily. [place] (SILVADENE) Medical 1 % cream Branch Lidocaine 5 2020-06 Yes [id number] Apply to Univers % cream 2-21 area(s) ity of 00:00: daily. [place] [facility] silver 2020-06 Yes [id number] Apply to [facility] sulfADIAZIN 2-21 area(s) ity o f E 00:00: daily. [place] (SILVADENE) Medical 1 % cream Branch Lidocaine 5 2020-06 Yes [id number] Apply to Univers % cream 2-21 area(s) ity of 00:00: daily. [place] [facility] silver 2020-06 Yes [id number] Apply to [facility] sulfADIAZIN 2-21 area(s) ity o f E 00:00: daily. [place] (SILVADENE) Medical 1 % cream Branch Lidocaine 5 2020-06 Yes [id number] Apply to Univers % cream 2-21 area(s) ity of 00:00: daily. [place] [facility] silver 2020-06 Yes [id number] Apply to [facility] sulfADIAZIN 2-21 area(s) ity o f E 00:00: daily. [place] (SILVADENE) Medical 1 % cream Branch Lidocaine 5 2020-06 Yes [id number] Apply to Univers % cream 2-21 area(s) ity of 00:00: daily. [place] [facility] silver 2020-06 Yes [id number] Apply to [facility] sulfADIAZIN 2-21 area(s) ity o f E 00:00: daily. [place] (SILVADENE) Medical 1 % cream Branch Lidocaine 5 2020-06 Yes [id number] Apply to Univers % cream 2-21 area(s) ity of 00:00: daily. Medical Branch silver 2020-06 Yes [id number] Apply to [facility] sulfADIAZIN 2-21 area(s) ity o f E 00:00: daily. [place] (SILVADENE) Medical 1 % cream Branch Lidocaine 5 2020-06 Yes [id number] Apply to Univers % cream 2-21 area(s) ity of 00:00: daily. [place] [facility] silver 2020-06 Yes [id number] Apply to [facility] sulfADIAZIN 2-21 area(s) ity o f E 00:00: daily. [place] (SILVADENE) 00 Medical 1 % cream Branch bictegrav-e Yes [id number] 1{tbl} Take 1 Univers mtricit-ten 8-26 tablet by ity of ofov ala 00:00: mouth [place] (BIKTARVY) 00 daily. Medical 50-200-25 Branch mg tablet bictegrav-e Yes [id number] 1{tbl} Take 1 Univers mtricit-ten 8-26 tablet by ity of ofov ala 00:00: mouth [place] (BIKTARVY) 00 daily. Medical 50-200-25 Branch mg tablet bictegrav-e 2021- No [id number] 1{tbl} Take 1 Univers mtricit-ten 8-26 09-13 tablet by it y of ofov ala 00:00: 00:00 mouth [place] (BIKTARVY) 00 :00 daily. Medical 50-200-25 Branch mg tablet Immunizations Ordered Filled Immunization Date Status Comments [facility] e Immunization Name Name SARS-COV-2 COVID-19 2022-03-08 [...] YRS+, Branch BIVALENT 0.3ML, IM, (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 TOP) Influenza Virus 2022-03-08 Completed Universit y of Vaccine Quad IM, 00:00:00 [place] Me dical Preserv and ABX Branch Free 6 MO-64 YRS SARS-COV-2 COVID-19 2022-03-08 Completed Unive rsity of PAOLA-SUCROSE 00:00:00 [place] Medica l VACCINE 12 YRS+, Branch BIVALENT 0.3ML, IM, (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 TOP) Influenza Virus 2022-03-08 Completed Universit y of Vaccine Quad IM, 00:00:00 [place] Me dical Preserv and ABX Branch Free 6 MO-64 YRS SARS-COV-2 COVID-19 2022-03-08 Completed Unive rsity of PAOLA-SUCROSE 00:00:00 [place] Medica l VACCINE 12 YRS+, Branch BIVALENT 0.3ML, IM, (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 TOP) Influenza Virus 2022-03-08 Completed Universit y of Vaccine Quad IM, 00:00:00 [place] Me dical Preserv and ABX Branch Free 6 MO-64 YRS SARS-COV-2 COVID-19 2022-03-08 Completed Unive rsity of PAOLA-SUCROSE 00:00:00 [place] Medica l VACCINE 12 YRS+, Branch BIVALENT 0.3ML, IM, (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 TOP) Influenza Virus 2022-03-08 Completed Universit y of Vaccine Quad IM, 00:00:00 [place] Me dical Preserv and ABX Branch Free 6 MO-64 YRS SARS-COV-2 COVID-19 2022-03-08 Completed Unive rsity of PAOLA-SUCROSE 00:00:00 [place] Medica l VACCINE 12 YRS+, Branch BIVALENT 0.3ML, IM, (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 TOP) Influenza Virus 2022-03-08 Completed Universit y of Vaccine Quad IM, 00:00:00 [place] Me dical Preserv and ABX Branch Free 6 MO-64 YRS SARS-COV-2 COVID-19 2022-03-08 Completed Unive rsity of PAOLA-SUCROSE 00:00:00 [place] Medica l VACCINE 12 YRS+, Branch BIVALENT 0.3ML, IM, (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 TOP) Influenza Virus 2022-03-08 Completed Universit y of Vaccine Quad IM, 00:00:00 [place] Me dical Preserv and ABX Branch Free 6 MO-64 YRS HPV9 2021-08-03 Completed University of 00:00:00 [facility] Hepatitis A Adult 2021-08-03 Completed Univers ity of 00:00:00 [facility] HPV9 2021-08-03 Completed University of 00:00:00 [facility] Hepatitis A Adult 2021-08-03 Completed Univers ity of 00:00:00 [facility] HPV9 2021-08-03 Completed University of 00:00:00 [facility] Hepatitis A Adult 2021-08-03 Completed Univers ity of 00:00:00 [facility] HPV9 2021-08-03 Completed University of 00:00:00 [facility] Hepatitis A Adult 2021-08-03 Completed Univers ity of 00:00:00 [facility] HPV9 2021-08-03 Completed University of 00:00:00 [facility] Hepatitis A Adult 2021-08-03 Completed Univers ity of 00:00:00 [facility] HPV9 2021-08-03 Completed University of 00:00:00 [facility] Hepatitis A Adult 2021-08-03 Completed Univers ity of 00:00:00 [facility] HPV9 2021-08-03 Completed University of 00:00:00 [facility] Hepatitis A Adult 2021-08-03 Completed Univers ity of 00:00:00 [facility] HPV9 2021-08-03 Completed University of 00:00:00 [facility] Hepatitis A Adult 2021-08-03 Completed Univers ity of 00:00:00 [facility] HPV9 2021-08-03 Completed University of 00:00:00 [facility] Hepatitis A Adult 2021-08-03 Completed Univers ity of 00:00:00 [facility] Branch [facility] 2021-08-03 Completed University of 00:00:00 [facility] Hepatitis A Adult 2021-08-03 Completed Univers ity of 00:00:00 [facility] 2021-08-03 Completed University of 00:00:00 [facility] Hepatitis A Adult 2021-08-03 Completed Univers ity of 00:00:00 [facility] Branch [facility] 2021-08-03 Completed University of 00:00:00 [facility] Hepatitis A Adult 2021-08-03 Completed Univers ity of 00:00:00 [facility] 2021-08-03 Completed University of 00:00:00 [facility] Hepatitis A Adult 2021-08-03 Completed Univers ity of 00:00:00 [facility] 2021-08-03 Completed University of 00:00:00 [facility] Hepatitis A Adult 2021-08-03 Completed Univers ity of 00:00:00 [facility] 2021-08-03 Completed University of 00:00:00 [facility] Hepatitis A Adult 2021-08-03 Completed Univers ity of 00:00:00 [facility] 2021-08-03 Completed University of 00:00:00 [facility] Hepatitis A Adult 2021-08-03 Completed Univers ity of 00:00:00 [facility] 2021-08-03 Completed University of 00:00:00 [facility] Hepatitis A Adult 2021-08-03 Completed Univers ity of 00:00:00 [facility] 2021-08-03 Completed University of 00:00:00 [facility] Hepatitis A Adult 2021-08-03 Completed Univers ity of 00:00:00 [facility] 2021-08-03 Completed University of 00:00:00 [facility] Hepatitis A Adult 2021-08-03 Completed Univers ity of 00:00:00 [facility] Branch [facility] 2021-08-03 Completed University of 00:00:00 [facility] Hepatitis A Adult 2021-08-03 Completed Univers ity of 00:00:00 [facility] Branch [facility] 2021-08-03 Completed University of 00:00:00 [facility] Hepatitis A Adult 2021-08-03 Completed Univers ity of 00:00:00 [facility] 2021-08-03 Completed University of 00:00:00 [facility] Hepatitis A Adult 2021-08-03 Completed Univers ity of 00:00:00 [facility] 2021-08-03 Completed University of 00:00:00 [facility] Hepatitis A Adult 2021-08-03 Completed Univers ity of 00:00:00 [facility] 2021-08-03 Completed University of 00:00:00 [facility] Hepatitis A Adult 2021-08-03 Completed Univers ity of 00:00:00 [facility] 2021-08-03 Completed University of 00:00:00 [facility] Hepatitis A Adult 2021-08-03 Completed Univers ity of 00:00:00 [facility] 2021-08-03 Completed University of 00:00:00 [facility] Hepatitis A Adult 2021-08-03 Completed Univers ity of 00:00:00 [facility] 2021-08-03 Completed University of 00:00:00 [facility] Hepatitis A Adult 2021-08-03 Completed Univers ity of 00:00:00 [facility] 2021-08-03 Completed University of 00:00:00 [facility] Hepatitis A Adult 2021-08-03 Completed Univers ity of 00:00:00 [facility] 2021-08-03 Completed University of 00:00:00 [facility] Hepatitis A Adult 2021-08-03 Completed Univers ity of 00:00:00 [facility] 2021-08-03 Completed University of 00:00:00 [facility] Hepatitis A Adult 2021-08-03 Completed Univers ity of 00:00:00 [facility] 2021-08-03 Completed University of 00:00:00 [facility] Hepatitis A Adult 2021-08-03 Completed Univers ity of 00:00:00 [facility] 2021-08-03 Completed University of 00:00:00 [facility] Hepatitis A Adult 2021-08-03 Completed Univers ity of 00:00:00 [facility] 2021-08-03 Completed University of 00:00:00 [facility] Hepatitis A Adult 2021-08-03 Completed Univers ity of 00:00:00 [facility] HPV9 2021-08-03 Completed University of 00:00:00 [facility] Hepatitis A Adult 2021-08-03 Completed Univers ity of 00:00:00 [facility] Branch HPV9 2021-08-03 Completed University of 00:00:00 [facility] Hepatitis A Adult 2021-08-03 Completed Univers ity of 00:00:00 [facility] Branch HPV9 2021-08-03 Completed University of 00:00:00 [facility] Hepatitis A Adult 2021-08-03 Completed Univers ity of 00:00:00 [facility] HPV9 2021-08-03 Completed University of 00:00:00 [facility] Hepatitis A Adult 2021-08-03 Completed Univers ity of 00:00:00 [facility] HPV9 2021-08-03 Completed University of 00:00:00 [facility] Hepatitis A Adult 2021-08-03 Completed Univers ity of 00:00:00 [facility] HPV9 2021-08-03 Completed University of 00:00:00 [facility] Hepatitis A Adult 2021-08-03 Completed Univers ity of 00:00:00 [facility] Influenza Virus 2021-05-04 Completed Universit y of Vaccine Quad IM, 00:00:00 [facility] dical Preserv and ABX Branch Free 6 MO-64 YRS SARS-COV-2 COVID-19 2021-05-04 Completed Unive rsity of PFIZER VACCINE 00:00:[address] [facility] [place] [place] Influenza Virus 2021-05-04 Completed [facility]it [facility] Vaccine Quad IM, 00:00:00 [facility] dical Preserv and ABX Branch Free 6 MO-64 YRS SARS-COV-2 COVID-19 2021-05-04 Completed Unive rsity of PFIZER VACCINE 00:00:[address] [facility] [place] Influenza Virus 2021-05-04 Completed [facility]it [facility] of Vaccine Quad IM, 00:00:00 [facility] dical Preserv and ABX Branch Free 6 MO-64 YRS SARS-COV-2 COVID-19 2021-05-04 Completed Unive rsity of PFIZER VACCINE 00:00:[address] [facility] [place] Influenza Virus 2021-05-04 Completed [facility]it [facility] of Vaccine Quad IM, 00:00:00 [place] [facility] dical Preserv and ABX Branch Free 6 MO-64 YRS SARS-COV-2 COVID-19 2021-05-04 Completed Unive rsity of PFIZER VACCINE 00:00:00 [facility] Branch Influenza Virus 2021-05-04 Completed [facility]it y of Vaccine Quad IM, 00:00:00 [place] [facility] dical Preserv and ABX Branch Free 6 MO-64 YRS SARS-COV-2 COVID-19 2021-05-04 Completed Unive rsity of PFIZER VACCINE 00:00:00 [facility] Branch Influenza Virus 2021-05-04 Completed [facility]it [facility] of Vaccine Quad IM, 00:00:00 [place] [facility] dical Preserv and ABX Branch Free 6 MO-64 YRS SARS-COV-2 COVID-19 2021-05-04 Completed Unive rsity of PFIZER VACCINE 00:00:[address] [facility] [place] Influenza Virus 2021-05-04 Completed [facility]it y of Vaccine Quad IM, 00:00:00 [facility] dical Preserv and ABX Branch Free 6 MO-64 YRS SARS-COV-2 COVID-19 2021-05-04 Completed Unive rsity of PFIZER VACCINE 00:00:00 [facility] Branch Influenza Virus 2021-05-04 Completed [facility]it y of Vaccine Quad IM, 00:00:00 [facility] dical Preserv and ABX Branch Free 6 MO-64 YRS SARS-COV-2 COVID-19 2021-05-04 Completed Unive rsity of PFIZER VACCINE 00:00:[address] [facility] [place] Influenza Virus 2021-05-04 Completed [facility]it y of Vaccine Quad IM, 00:00:00 [facility] dical Preserv and ABX Branch Free 6 MO-64 YRS SARS-COV-2 COVID-19 2021-05-04 Completed Unive rsity of PFIZER VACCINE 00:00:[address] [facility] [place] Influenza Virus 2021-05-04 Completed [facility]it y of Vaccine Quad IM, 00:00:00 [facility] dical Preserv and ABX Branch Free 6 MO-64 YRS SARS-COV-2 COVID-19 2021-05-04 Completed Unive rsity of PFIZER VACCINE 00:00:[address] [facility] [place] Influenza Virus 2021-05-04 Completed [facility]it y of Vaccine Quad IM, 00:00:00 [facility] dical Preserv and ABX Branch Free 6 MO-64 YRS SARS-COV-2 COVID-19 2021-05-04 Completed Unive rsity of PFIZER VACCINE 00:00:[address] [facility] [place] Influenza Virus 2021-05-04 Completed [facility] of Vaccine Quad IM, 00:00:00 [place] [facility] dical Preserv and ABX Branch Free 6 MO-64 YRS SARS-COV-2 COVID-19 2021-05-04 Completed Unive rsity of PFIZER VACCINE 00:00:[address] [facility] [place] Influenza Virus 2021-05-04 Completed [facility] of Vaccine Quad IM, 00:00:00 [place] [facility] dical Preserv and ABX Branch Free 6 MO-64 YRS SARS-COV-2 COVID-19 2021-05-04 Completed Unive rsity of PFIZER VACCINE 00:00:[address] [facility] [place] Influenza Virus 2021-05-04 Completed [facility]it y of Vaccine Quad IM, 00:00:00 [facility] dical Preserv and ABX Branch Free 6 MO-64 YRS SARS-COV-2 COVID-19 2021-05-04 Completed Unive rsity of PFIZER VACCINE 00:00:[address] [facility] [place] Influenza Virus 2021-05-04 Completed [facility]it y of Vaccine Quad IM, 00:00:00 [facility] dical Preserv and ABX Branch Free 6 MO-64 YRS SARS-COV-2 COVID-19 2021-05-04 Completed Unive rsity of PFIZER VACCINE 00:00:[address] [facility] [place] Influenza Virus 2021-05-04 Completed [facility] of Vaccine Quad IM, 00:00:00 [facility] dical Preserv and ABX Branch Free 6 MO-64 YRS SARS-COV-2 COVID-19 2021-05-04 Completed Unive rsity of PFIZER VACCINE 00:00:[address] [facility] [place] Influenza Virus 2021-05-04 Completed [facility] of Vaccine Quad IM, 00:00:00 [facility] dical Preserv and ABX Branch Free 6 MO-64 YRS SARS-COV-2 COVID-19 2021-05-04 Completed Unive rsity of PFIZER VACCINE 00:00:[address] [facility] [place] Influenza Virus 2021-05-04 Completed [facility]it [facility] of Vaccine Quad IM, 00:00:00 [facility] dical Preserv and ABX Branch Free 6 MO-64 YRS SARS-COV-2 COVID-19 2021-05-04 Completed Unive rsity of PFIZER VACCINE 00:00:[address] [facility] [place] Influenza Virus 2021-05-04 Completed [facility] of Vaccine Quad IM, 00:00:00 [place] [facility] dical Preserv and ABX Branch Free 6 MO-64 YRS SARS-COV-2 COVID-19 2021-05-04 Completed Unive rsity of PFIZER VACCINE 00:00:[address] [facility] [place] Influenza Virus 2021-05-04 Completed [facility] of Vaccine Quad IM, 00:00:00 [place] [facility] dical Preserv and ABX Branch Free 6 MO-64 YRS SARS-COV-2 COVID-19 2021-05-04 Completed Unive rsity of PFIZER VACCINE 00:00:[address] [facility] [place] Influenza Virus 2021-05-04 Completed [facility] of Vaccine Quad IM, 00:00:00 [place] [facility] dical Preserv and ABX Branch Free 6 MO-64 YRS SARS-COV-2 COVID-19 2021-05-04 Completed Unive rsity of PFIZER VACCINE 00:00:[address] [facility] [place] Influenza Virus 2021-05-04 Completed [facility] Vaccine Quad IM, 00:00:00 [place] [facility] dical Preserv and ABX Branch Free 6 MO-64 YRS SARS-COV-2 COVID-19 2021-05-04 Completed Unive rsity of PFIZER VACCINE 00:00:[address] [facility] [place] Influenza Virus 2021-05-04 Completed [facility] of Vaccine Quad IM, 00:00:00 [place] [facility] dical Preserv and ABX Branch Free 6 MO-64 YRS SARS-COV-2 COVID-19 2021-05-04 Completed Unive rsity of PFIZER VACCINE 00:00:[address] [facility] [place] Influenza Virus 2021-05-04 Completed [facility] of Vaccine Quad IM, 00:00:00 [place] [facility] dical Preserv and ABX Branch Free 6 MO-64 YRS SARS-COV-2 COVID-19 2021-05-04 Completed Unive rsity of PFIZER VACCINE 00:00:[address] [facility] [place] Influenza Virus 2021-05-04 Completed [facility] of Vaccine Quad IM, 00:00:00 [place] [facility] dical Preserv and ABX Branch Free 6 MO-64 YRS SARS-COV-2 COVID-19 2021-05-04 Completed Unive rsity of PFIZER VACCINE 00:00:00 [facility] Branch Influenza Virus 2021-05-04 Completed [facility]it y of Vaccine Quad IM, 00:00:00 [place] [facility] dical Preserv and ABX Branch Free 6 MO-64 YRS SARS-COV-2 COVID-19 2021-05-04 Completed Unive rsity of PFIZER VACCINE 00:00:[address] [facility] [place] Influenza Virus 2021-05-04 Completed [facility] of Vaccine Quad IM, 00:00:00 [place] [facility] dical Preserv and ABX Branch Free 6 MO-64 YRS SARS-COV-2 COVID-19 2021-05-04 Completed Unive rsity of PFIZER VACCINE 00:00:00 [facility] Branch Influenza Virus 2021-05-04 Completed [facility]it [facility] of Vaccine Quad IM, 00:00:00 [place] [facility] dical Preserv and ABX Branch Free 6 MO-64 YRS SARS-COV-2 COVID-19 2021-05-04 Completed Unive rsity of PFIZER VACCINE 00:00:00 [facility] Influenza Virus 2021-05-04 Completed [facility] y of Vaccine Quad IM, 00:00:00 [place] [facility] dical Preserv and ABX Branch Free 6 MO-64 YRS SARS-COV-2 COVID-19 2021-05-04 Completed Unive rsity of PFIZER VACCINE 00:00:00 [facility] Branch Influenza Virus 2021-05-04 Completed [facility]it y of Vaccine Quad IM, 00:00:00 [place] [facility] dical Preserv and ABX Branch Free 6 MO-64 YRS SARS-COV-2 COVID-19 2021-05-04 Completed Unive rsity of PFIZER VACCINE 00:00:00 [facility] Influenza Virus 2021-05-04 Completed [facility] y of Vaccine Quad IM, 00:00:00 [place] [facility] dical Preserv and ABX Branch Free 6 MO-64 YRS SARS-COV-2 COVID-19 2021-05-04 Completed Unive rsity of PFIZER VACCINE 00:00:00 [facility] Branch Influenza Virus 2021-05-04 Completed [facility] y of Vaccine Quad IM, 00:00:00 [place] [facility] dical Preserv and ABX Branch Free 6 MO-64 YRS SARS-COV-2 COVID-19 2021-05-04 Completed Unive rsity of PFIZER VACCINE 00:00:00 [place] [facility] Influenza Virus 2021-05-04 Completed [facility] y of Vaccine Quad IM, 00:00:00 [place] [facility] dical Preserv and ABX Branch Free 6 MO-64 YRS SARS-COV-2 COVID-19 2021-05-04 Completed Unive rsity of PFIZER VACCINE 00:00:[address] [facility] [place] Influenza Virus 2021-05-04 Completed [facility] y of Vaccine Quad IM, 00:00:00 [place] [facility] dical Preserv and ABX Branch Free 6 MO-64 YRS SARS-COV-2 COVID-19 2021-05-04 Completed Unive rsity of PFIZER VACCINE 00:00:[address] [facility] [place] Influenza Virus 2021-05-04 Completed [facility]it y of Vaccine Quad IM, 00:00:00 [facility] dical Preserv and ABX Branch Free 6 MO-64 YRS SARS-COV-2 COVID-19 2021-05-04 Completed Unive rsity of PFIZER VACCINE 00:00:[address] [facility] [place] Influenza Virus 2021-05-04 Completed [facility]it y of Vaccine Quad IM, 00:00:00 [facility] dical Preserv and ABX Branch Free 6 MO-64 YRS SARS-COV-2 COVID-19 2021-05-04 Completed Unive rsity of PFIZER VACCINE 00:00:[address] [facility] [place] Influenza Virus 2021-05-04 Completed [facility]it y of Vaccine Quad IM, 00:00:00 [facility] dical Preserv and ABX Branch Free 6 MO-64 YRS SARS-COV-2 COVID-19 2021-05-04 Completed Unive rsity of PFIZER VACCINE 00:00:[address] [facility] [place] Influenza Virus 2021-05-04 Completed [facility] y of Vaccine Quad IM, 00:00:00 [place] [facility] dical Preserv and ABX Branch Free 6 MO-64 YRS SARS-COV-2 COVID-19 2021-05-04 Completed Unive rsity of PFIZER VACCINE 00:00:[address] [facility] [place] Influenza Virus 2021-05-04 Completed [facility]it y of Vaccine Quad IM, 00:00:00 [facility] dical Preserv and ABX Branch Free 6 MO-64 YRS SARS-COV-2 COVID-19 2021-05-04 Completed Unive rsity of PFIZER VACCINE 00:00:[address] [facility] [place] [place] HPV9 2021-03-28 Completed University of 00:00:00 [place] [facility] HPV9 2021-03-28 Completed University of 00:00:00 [place] [facility] HPV9 2021-03-28 Completed University of 00:00:00 [place] [facility] HPV9 2021-03-28 Completed University of 00:00:00 [place] [facility] HPV9 2021-03-28 Completed University of 00:00:00 [place] [facility] HPV9 2021-03-28 Completed University of 00:00:00 [place] [facility] HPV9 2021-03-28 Completed University of 00:00:00 [place] [facility] HPV9 2021-03-28 Completed University of 00:00:00 [place] [facility] HPV9 2021-03-28 Completed University of 00:00:00 [place] [facility] HPV9 2021-03-28 Completed University of 00:00:00 [place] [facility] HPV9 2021-03-28 Completed University of 00:00:00 [facility] HPV9 2021-03-28 Completed University of 00:00:00 [facility] HPV9 2021-03-28 Completed University of 00:00:00 [place] [facility] HPV9 2021-03-28 Completed University of 00:00:00 [place] [facility] HPV9 2021-03-28 Completed University of 00:00:00 [facility] HPV9 2021-03-28 Completed University of 00:00:00 [facility] HPV9 2021-03-28 Completed University of 00:00:00 [facility] HPV9 2021-03-28 Completed University of 00:00:00 [facility] HPV9 2021-03-28 Completed University of 00:00:00 [place] [facility] HPV9 2021-03-28 Completed University of 00:00:00 [place] [facility] HPV9 2021-03-28 Completed University of 00:00:00 [place] [facility] HPV9 2021-03-28 Completed University of 00:00:00 [facility] HPV9 2021-03-28 Completed University of 00:00:00 [place] [facility] HPV9 2021-03-28 Completed University of 00:00:00 [facility] HPV9 2021-03-28 Completed University of 00:00:00 [facility] HPV9 2021-03-28 Completed University of 00:00:00 [place] [facility] HPV9 2021-03-28 Completed University of 00:00:00 [facility] HPV9 2021-03-28 Completed University of 00:00:00 [facility] HPV9 2021-03-28 Completed University of 00:00:00 [facility] Branch HPV9 2021-03-28 Completed University of 00:00:00 [facility] HPV9 2021-03-28 Completed University of 00:00:00 [facility] HPV9 2021-03-28 Completed University of 00:00:00 [facility] HPV9 2021-03-28 Completed University of 00:00:00 [facility] HPV9 2021-03-28 Completed University of 00:00:00 [facility] HPV9 2021-03-28 Completed University of 00:00:00 [facility] HPV9 2021-03-28 Completed University of 00:00:00 [facility]9 2021-03-28 Completed University of 00:00:00 [facility]9 2021-03-28 Completed University of 00:00:00 [facility]9 2021-03-28 Completed University of 00:00:00 [facility] Pneumococcal 2021-01-26 Completed University o f Polysaccharide, 00:00:00 [place] [facility] PPSV23 (PNEUMOVAX) Branch [facility] 2021-01-26 Completed University of 00:00:00 [facility] Pneumococcal 2021-01-26 Completed University o f Polysaccharide, 00:00:00 [place] [facility] PPSV23 (PNEUMOVAX) Branch [facility] 2021-01-26 Completed University of 00:00:00 [facility] Pneumococcal 2021-01-26 Completed University o f Polysaccharide, 00:00:00 [place] [facility] PPSV23 (PNEUMOVAX) Branch [facility] 2021-01-26 Completed University of 00:00:00 [facility] Pneumococcal 2021-01-26 Completed University o f Polysaccharide, 00:00:00 [place] [facility] PPSV23 (PNEUMOVAX) Branch [facility] 2021-01-26 Completed University of 00:00:00 [facility] Pneumococcal 2021-01-26 Completed University o f Polysaccharide, 00:00:00 [place] [facility] PPSV23 (PNEUMOVAX) Branch [facility] 2021-01-26 Completed University of 00:00:00 [facility] Pneumococcal 2021-01-26 Completed University o f Polysaccharide, 00:00:00 [place] [facility] PPSV23 (PNEUMOVAX) Branch [facility] 2021-01-26 Completed University of 00:00:00 [facility] Pneumococcal 2021-01-26 Completed University o f Polysaccharide, 00:00:00 [place] [facility] PPSV23 (PNEUMOVAX) Branch [facility] 2021-01-26 Completed University of 00:00:00 [facility] Pneumococcal 2021-01-26 Completed University o f Polysaccharide, 00:00:00 [place] [facility] PPSV23 (PNEUMOVAX) Branch [facility] 2021-01-26 Completed University of 00:00:00 [facility] Pneumococcal 2021-01-26 Completed University o f Polysaccharide, 00:00:00 [place] [facility] PPSV23 (PNEUMOVAX) Branch [facility] 2021-01-26 Completed University of 00:00:00 [facility] Pneumococcal 2021-01-26 Completed University o f Polysaccharide, 00:00:00 [place] [facility] PPSV23 (PNEUMOVAX) Branch [facility] 2021-01-26 Completed University of 00:00:00 [facility] Pneumococcal 2021-01-26 Completed University o f Polysaccharide, 00:00:00 [place] [facility] PPSV23 (PNEUMOVAX) Branch [facility] 2021-01-26 Completed University of 00:00:00 [facility] Pneumococcal 2021-01-26 Completed University o f Polysaccharide, 00:00:00 [place] [facility] PPSV23 (PNEUMOVAX) Branch [facility] 2021-01-26 Completed University of 00:00:00 [facility] Pneumococcal 2021-01-26 Completed University o f Polysaccharide, 00:00:00 [place] [facility] PPSV23 (PNEUMOVAX) Branch [facility] 2021-01-26 Completed University of 00:00:00 [facility] Pneumococcal 2021-01-26 Completed University o f Polysaccharide, 00:00:00 [place] [facility] PPSV23 (PNEUMOVAX) Branch [facility] 2021-01-26 Completed University of 00:00:00 [facility] Pneumococcal 2021-01-26 Completed University o f Polysaccharide, 00:00:00 [place] [facility] PPSV23 (PNEUMOVAX) Branch [facility] 2021-01-26 Completed University of 00:00:00 [facility] Pneumococcal 2021-01-26 Completed University o f Polysaccharide, 00:00:00 [place] [facility] PPSV23 (PNEUMOVAX) Branch [facility] 2021-01-26 Completed University of 00:00:00 [facility] Pneumococcal 2021-01-26 Completed University o f Polysaccharide, 00:00:00 [place] [facility] PPSV23 (PNEUMOVAX) Branch [facility] 2021-01-26 Completed University of 00:00:00 [facility] Pneumococcal 2021-01-26 Completed University o f Polysaccharide, 00:00:00 [place] [facility] PPSV23 (PNEUMOVAX) Branch [facility] 2021-01-26 Completed University of 00:00:00 [facility] Pneumococcal 2021-01-26 Completed University o f Polysaccharide, 00:00:00 [place] [facility] PPSV23 (PNEUMOVAX) Branch [facility] 2021-01-26 Completed University of 00:00:00 [facility] Pneumococcal 2021-01-26 Completed University o f Polysaccharide, 00:00:00 [place] [facility] PPSV23 (PNEUMOVAX) Branch [facility] 2021-01-26 Completed University of 00:00:00 [facility] Pneumococcal 2021-01-26 Completed University o f Polysaccharide, 00:00:00 [place] [facility] PPSV23 (PNEUMOVAX) Branch [facility] 2021-01-26 Completed University of 00:00:00 [facility] Pneumococcal 2021-01-26 Completed University o f Polysaccharide, 00:00:00 [place] [facility] PPSV23 (PNEUMOVAX) Branch [facility] 2021-01-26 Completed University of 00:00:00 [facility] Pneumococcal 2021-01-26 Completed University o f Polysaccharide, 00:00:00 [place] [facility] PPSV23 (PNEUMOVAX) Branch [facility] 2021-01-26 Completed University of 00:00:00 [facility] Pneumococcal 2021-01-26 Completed University o f Polysaccharide, 00:00:00 [place] [facility] PPSV23 (PNEUMOVAX) Branch [facility] 2021-01-26 Completed University of 00:00:00 [facility] Pneumococcal 2021-01-26 Completed University o f Polysaccharide, 00:00:00 [place] [facility] PPSV23 (PNEUMOVAX) Branch [facility] 2021-01-26 Completed University of 00:00:00 [facility] Pneumococcal 2021-01-26 Completed University o f Polysaccharide, 00:00:00 [place] [facility] PPSV23 (PNEUMOVAX) Branch [facility] 2021-01-26 Completed University of 00:00:00 [facility] Pneumococcal 2021-01-26 Completed University o f Polysaccharide, 00:00:00 [place] [facility] PPSV23 (PNEUMOVAX) Branch [facility] 2021-01-26 Completed University of 00:00:00 [facility] Pneumococcal 2021-01-26 Completed University o f Polysaccharide, 00:00:00 [place] [facility] PPSV23 (PNEUMOVAX) Branch [facility] 2021-01-26 Completed University of 00:00:00 [facility] Pneumococcal 2021-01-26 Completed University o f Polysaccharide, 00:00:00 [place] [facility] PPSV23 (PNEUMOVAX) Branch [facility] 2021-01-26 Completed University of 00:00:00 [facility] Pneumococcal 2021-01-26 Completed University o f Polysaccharide, 00:00:00 [place] [facility] PPSV23 (PNEUMOVAX) Branch [facility] 2021-01-26 Completed University of 00:00:00 [facility] Pneumococcal 2021-01-26 Completed University o f Polysaccharide, 00:00:00 [place] [facility] PPSV23 (PNEUMOVAX) Branch [facility] 2021-01-26 Completed University of 00:00:00 [facility] Pneumococcal 2021-01-26 Completed University o f Polysaccharide, 00:00:00 [place] [facility] PPSV23 (PNEUMOVAX) Branch [facility] 2021-01-26 Completed University of 00:00:00 [facility] Pneumococcal 2021-01-26 Completed University o f Polysaccharide, 00:00:00 [place] [facility] PPSV23 (PNEUMOVAX) Branch [facility] 2021-01-26 Completed University of 00:00:00 [facility] Pneumococcal 2021-01-26 Completed University o f Polysaccharide, 00:00:00 [place] [facility] PPSV23 (PNEUMOVAX) Branch [facility] 2021-01-26 Completed University of 00:00:00 [facility] Pneumococcal 2021-01-26 Completed University o f Polysaccharide, 00:00:00 [place] [facility] PPSV23 (PNEUMOVAX) Branch [facility] 2021-01-26 Completed University of 00:00:00 [facility] Pneumococcal 2021-01-26 Completed University o f Polysaccharide, 00:00:00 [place] [facility] PPSV23 (PNEUMOVAX) Branch HPV9 2021-01-26 Completed University of 00:00:00 [facility] Pneumococcal 2021-01-26 Completed University o f Polysaccharide, 00:00:00 [place] [facility] PPSV23 (PNEUMOVAX) Branch HPV9 2021-01-26 Completed University of 00:00:00 [facility] Pneumococcal 2021-01-26 Completed University o f Polysaccharide, 00:00:00 [place] [facility] PPSV23 (PNEUMOVAX) Branch HPV9 2021-01-26 Completed University of 00:00:00 [facility] Pneumococcal 2021-01-26 Completed University o f Polysaccharide, 00:00:00 [place] [facility] PPSV23 (PNEUMOVAX) Branch HPV9 2021-01-26 Completed University of 00:00:00 [facility] SARS-COV-2 COVID-19 2020-10-03 Completed Unive rsity of MODERNA 12+ YRS 00:00:00 [place] [facility] VACCINE Branch SARS-COV-2 COVID-19 2020-10-03 Completed Unive rsity of MODERNA 12+ YRS 00:00:00 [place] [facility] VACCINE Branch SARS-COV-2 COVID-19 2020-10-03 Completed Unive rsity of MODERNA 12+ YRS 00:00:00 [place] [facility] VACCINE Branch SARS-COV-2 COVID-19 2020-10-03 [...] Unive rsity of MODERNA 12+ YRS 00:00:[address] [facility] ical VACCINE Branch SARS-COV-2 COVID-19 2020-09-05 Completed Unive rsity of MODERNA 12+ YRS 00:00:00 [facility] VACCINE Branch HEPLISAV HEP B, 2020-09-01 Completed Universit y of ADULT 2 DOSE, IM 00:00:00 [facility] dicut Branch TDAP 2020-09-01 Completed University of 00:00:00 [facility] HEPLISAV HEP B, 2020-09-01 Completed Universit y of ADULT 2 DOSE, IM 00:00:00 [facility] dicut Branch TDAP 2020-09-01 Completed University of 00:00:00 [facility] HEPLISAV HEP B, 2020-09-01 Completed Universit y of ADULT 2 DOSE, IM 00:00:00 [facility] TDAP 2020-09-01 Completed University of 00:00:00 [facility] [facility] HEPLISAV HEP B, 2020-09-01 Completed [facility] ADULT 2 DOSE, IM 00:00:00 [facility] TDAP 2020-09-01 Completed [facility] of 00:00:00 [facility] HEPLISAV HEP B, 2020-09-01 Completed [facility] of ADULT 2 DOSE, IM 00:00:00 [facility] TDAP 2020-09-01 Completed [facility] of 00:00:00 [facility] HEPLISAV HEP B, 2020-09-01 Completed [facility]it y of ADULT 2 DOSE, IM 00:00:00 [facility] TDAP 2020-09-01 Completed [facility] of 00:00:00 [facility] HEPLISAV HEP B, 2020-09-01 Completed [facility] of ADULT 2 DOSE, IM 00:00:00 [facility] TDAP 2020-09-01 Completed [facility] of 00:00:00 [facility] HEPLISAV HEP B, 2020-09-01 Completed [facility] of ADULT 2 DOSE, IM 00:00:00 [facility] TDAP 2020-09-01 Completed [facility] of 00:00:00 [facility] HEPLISAV HEP B, 2020-09-01 Completed [facility] of ADULT 2 DOSE, IM 00:00:00 [facility] TDAP 2020-09-01 Completed [facility] of 00:00:00 [facility] HEPLISAV HEP B, 2020-09-01 Completed [facility] of ADULT 2 DOSE, IM 00:00:00 [facility] TDAP 2020-09-01 Completed [facility] of 00:00:00 [facility] HEPLISAV HEP B, 2020-09-01 Completed [facility] of ADULT 2 DOSE, IM 00:00:00 [facility] TDAP 2020-09-01 Completed [facility] of 00:00:00 [facility] HEPLISAV HEP B, 2020-09-01 Completed [facility] of ADULT 2 DOSE, IM 00:00:00 [facility] TDAP 2020-09-01 Completed [facility] of 00:00:00 [facility] HEPLISAV HEP B, 2020-09-01 Completed [facility] of ADULT 2 DOSE, IM 00:00:00 [facility] TDAP 2020-09-01 Completed [facility] of 00:00:00 [facility] HEPLISAV HEP B, 2020-09-01 Completed [facility] of ADULT 2 DOSE, IM 00:00:00 [facility] TDAP 2020-09-01 Completed [facility] of 00:00:00 [facility] HEPLISAV HEP B, 2020-09-01 Completed [facility] of ADULT 2 DOSE, IM 00:00:00 [facility] TDAP 2020-09-01 Completed [facility] of 00:00:00 [facility] HEPLISAV HEP B, 2020-09-01 Completed [facility] of ADULT 2 DOSE, IM 00:00:00 [facility] TDAP 2020-09-01 Completed [facility] of 00:00:00 [facility] HEPLISAV HEP B, 2020-09-01 Completed [facility] of ADULT 2 DOSE, IM 00:00:00 [facility] TDAP 2020-09-01 Completed [facility] of 00:00:00 [facility] HEPLISAV HEP B, 2020-09-01 Completed [facility] of ADULT 2 DOSE, IM 00:00:00 [facility] TDAP 2020-09-01 Completed [facility] of 00:00:00 [facility] HEPLISAV HEP B, 2020-09-01 Completed [facility] of ADULT 2 DOSE, IM 00:00:00 [facility] TDAP 2020-09-01 Completed [facility] of 00:00:00 [facility] HEPLISAV HEP B, 2020-09-01 Completed [facility] of ADULT 2 DOSE, IM 00:00:00 [facility] TDAP 2020-09-01 Completed [facility] of 00:00:00 [facility] HEPLISAV HEP B, 2020-09-01 Completed [facility] of ADULT 2 DOSE, IM 00:00:00 [facility] TDAP 2020-09-01 Completed [facility] of 00:00:00 [facility] HEPLISAV HEP B, 2020-09-01 Completed [facility] of ADULT 2 DOSE, IM 00:00:00 [facility] TDAP 2020-09-01 Completed [facility] of 00:00:00 [facility] HEPLISAV HEP B, 2020-09-01 Completed [facility] of ADULT 2 DOSE, IM 00:00:00 [facility] TDAP 2020-09-01 Completed [facility] of 00:00:00 [facility] HEPLISAV HEP B, 2020-09-01 Completed [facility] of ADULT 2 DOSE, IM 00:00:00 [facility] TDAP 2020-09-01 Completed [facility] of 00:00:00 [facility] HEPLISAV HEP B, 2020-09-01 Completed [facility] of ADULT 2 DOSE, IM 00:00:00 [facility] TDAP 2020-09-01 Completed [facility] of 00:00:00 [facility] HEPLISAV HEP B, 2020-09-01 Completed [facility]it [facility] of ADULT 2 DOSE, IM 00:00:00 [facility] TDAP 2020-09-01 Completed [facility] of 00:00:00 [facility] HEPLISAV HEP B, 2020-09-01 Completed [facility] of ADULT 2 DOSE, IM 00:00:00 [facility] TDAP 2020-09-01 Completed [facility] of 00:00:00 [facility] HEPLISAV HEP B, 2020-09-01 Completed [facility] of ADULT 2 DOSE, IM 00:00:00 [facility] TDAP 2020-09-01 Completed [facility] of 00:00:00 [facility] HEPLISAV HEP B, 2020-09-01 Completed [facility]it [facility] of ADULT 2 DOSE, IM 00:00:00 [facility] TDAP 2020-09-01 Completed [facility] of 00:00:00 [facility] HEPLISAV HEP B, 2020-09-01 Completed [facility]it [facility] of ADULT 2 DOSE, IM 00:00:00 [facility] TDAP 2020-09-01 Completed [facility] of 00:00:00 [facility] HEPLISAV HEP B, 2020-09-01 Completed [facility] of ADULT 2 DOSE, IM 00:00:00 [facility] TDAP 2020-09-01 Completed [facility] of 00:00:00 [facility] HEPLISAV HEP B, 2020-09-01 Completed [facility]it [facility] of ADULT 2 DOSE, IM 00:00:00 [facility] TDAP 2020-09-01 Completed [facility] of 00:00:00 [facility] HEPLISAV HEP B, 2020-09-01 Completed [facility] of ADULT 2 DOSE, IM 00:00:00 [facility] TDAP 2020-09-01 Completed [facility] of 00:00:00 [facility] HEPLISAV HEP B, 2020-09-01 Completed [facility] of ADULT 2 DOSE, IM 00:00:00 [facility] TDAP 2020-09-01 Completed [facility] of 00:00:00 [facility] HEPLISAV HEP B, 2020-09-01 Completed [facility] of ADULT 2 DOSE, IM 00:00:00 [facility] TDAP 2020-09-01 Completed [facility] of 00:00:00 [facility] HEPLISAV HEP B, 2020-09-01 Completed [facility] of ADULT 2 DOSE, IM 00:00:00 [facility] TDAP 2020-09-01 Completed [facility] of 00:00:00 [facility] HEPLISAV HEP B, 2020-09-01 Completed [facility] of ADULT 2 DOSE, IM 00:00:00 [facility] TDAP 2020-09-01 Completed [facility] of 00:00:00 [facility] HEPLISAV HEP B, 2020-09-01 Completed [facility]it [facility] of ADULT 2 DOSE, IM 00:00:00 [facility] Branch TDAP 2020-09-01 Completed University 00:00:00 [facility] HEPLISAV HEP B, 2020-09-01 Completed [facility] of ADULT 2 DOSE, IM 00:00:00 [facility] dical Branch TDAP 2020-09-01 Completed University 00:00:00 [facility] Influenza Virus 2020-04-21 Completed [facility]it y of Vaccine Quad .5 mL 00:00:00 [facility] IM 6+ MO Branch Pneumococcal 13 2020-04-21 Completed [facility]it y of Conjugate, PCV13 00:00:00 [facility] (Prevnar 13) Branch HEPLISAV HEP B, 2020-04-21 Completed [facility] of ADULT 2 DOSE, IM 00:00:00 [facility] Influenza Virus 2020-04-21 Completed [facility]it y of Vaccine Quad .5 mL 00:00:00 [facility] 6+ MO Branch Pneumococcal 13 2020-04-21 Completed [facility]it y of Conjugate, PCV13 00:00:00 [facility] (Prevnar 13) Branch HEPLISAV HEP B, 2020-04-21 Completed [facility]it y of ADULT 2 DOSE, IM 00:00:00 [facility] Influenza Virus 2020-04-21 Completed [facility]it y of Vaccine Quad .5 mL 00:00:00 [facility] 6+ MO Branch Pneumococcal 13 2020-04-21 Completed [facility]it y of Conjugate, PCV13 00:00:00 [facility] (Prevnar 13) Branch HEPLISAV HEP B, 2020-04-21 Completed [facility]it [facility] of ADULT 2 DOSE, IM 00:00:00 [facility] Influenza Virus 2020-04-21 Completed [facility]it y of Vaccine Quad .5 mL 00:00:00 [facility] IM 6+ MO Branch Pneumococcal 13 2020-04-21 Completed [facility]it y of Conjugate, PCV13 00:00:00 [facility] (Prevnar 13) Branch HEPLISAV HEP B, 2020-04-21 Completed [facility]it y of ADULT 2 DOSE, IM 00:00:00 [facility] Influenza Virus 2020-04-21 Completed [facility]it y of Vaccine Quad .5 mL 00:00:00 [facility] IM 6+ MO Branch Pneumococcal 13 2020-04-21 Completed [facility]it y of Conjugate, PCV13 00:00:00 [facility] dical (Prevnar 13) Branch HEPLISAV HEP B, 2020-04-21 Completed [facility]it y of ADULT 2 DOSE, IM 00:00:00 [facility] dical Branch Influenza Virus 2020-04-21 Completed [facility]it y of Vaccine Quad .5 mL 00:00:00 [facility] IM 6+ MO Branch Pneumococcal 13 2020-04-21 Completed [facility]it y of Conjugate, PCV13 00:00:00 [facility] dical (Prevnar 13) Branch HEPLISAV HEP B, 2020-04-21 Completed [facility]it y of ADULT 2 DOSE, IM 00:00:00 [facility] dical Branch Influenza Virus 2020-04-21 Completed [facility]it y of Vaccine Quad .5 mL 00:00:00 [facility] IM 6+ MO Branch Pneumococcal 13 2020-04-21 Completed [facility]it y of Conjugate, PCV13 00:00:00 [facility] dical (Prevnar 13) Branch HEPLISAV HEP B, 2020-04-21 Completed [facility]it y of ADULT 2 DOSE, IM 00:00:00 [facility] dical Branch Influenza Virus 2020-04-21 Completed [facility]it y of Vaccine Quad .5 mL 00:00:00 [facility] IM 6+ MO Branch Pneumococcal 13 2020-04-21 Completed [facility]it y of Conjugate, PCV13 00:00:00 [facility] dical (Prevnar 13) Branch HEPLISAV HEP B, 2020-04-21 Completed [facility]it y of ADULT 2 DOSE, IM 00:00:00 [facility] dical Branch Influenza Virus 2020-04-21 Completed [facility]it y of Vaccine Quad .5 mL 00:00:00 [facility] IM 6+ MO Branch Pneumococcal 13 2020-04-21 Completed [facility]it y of Conjugate, PCV13 00:00:00 [facility] dical (Prevnar 13) Branch HEPLISAV HEP B, 2020-04-21 Completed [facility]it y of ADULT 2 DOSE, IM 00:00:00 [facility] dical Branch Influenza Virus 2020-04-21 Completed [facility]it y of Vaccine Quad .5 mL 00:00:00 [facility] IM 6+ MO Branch Pneumococcal 13 2020-04-21 Completed [facility]it y of Conjugate, PCV13 00:00:00 [facility] dical (Prevnar 13) Branch HEPLISAV HEP B, 2020-04-21 Completed [facility]it y of ADULT 2 DOSE, IM 00:00:00 [facility] dical Branch Influenza Virus 2020-04-21 Completed [facility]it y of Vaccine Quad .5 mL 00:00:00 [facility] IM 6+ MO Branch Pneumococcal 13 2020-04-21 Completed [facility]it y of Conjugate, PCV13 00:00:00 [facility] dical (Prevnar 13) Branch HEPLISAV HEP B, 2020-04-21 Completed [facility]it y of ADULT 2 DOSE, IM 00:00:00 [facility] dical Branch Influenza Virus 2020-04-21 Completed [facility]it y of Vaccine Quad .5 mL 00:00:00 [facility] IM 6+ MO Branch Pneumococcal 13 2020-04-21 Completed [facility]it y of Conjugate, PCV13 00:00:00 [facility] dical (Prevnar 13) Branch HEPLISAV HEP B, 2020-04-21 Completed [facility] y of ADULT 2 DOSE, IM 00:00:00 [facility] dical Branch Influenza Virus 2020-04-21 Completed [facility]it y of Vaccine Quad .5 mL 00:00:00 [facility] 6+ MO Branch Pneumococcal 13 2020-04-21 Completed [facility]it y of Conjugate, PCV13 00:00:00 [facility] dical (Prevnar 13) Branch HEPLISAV HEP B, 2020-04-21 Completed [facility] y of ADULT 2 DOSE, IM 00:00:00 [facility] dical Branch Influenza Virus 2020-04-21 Completed [facility]it y of Vaccine Quad .5 mL 00:00:00 [facility] 6+ MO Branch Pneumococcal 13 2020-04-21 Completed [facility]it y of Conjugate, PCV13 00:00:00 [facility] dical (Prevnar 13) Branch HEPLISAV HEP B, 2020-04-21 Completed [facility] y of ADULT 2 DOSE, IM 00:00:00 [facility] dical Branch Influenza Virus 2020-04-21 Completed [facility]it y of Vaccine Quad .5 mL 00:00:00 [facility] IM 6+ MO Branch Pneumococcal 13 2020-04-21 Completed [facility]it y of Conjugate, PCV13 00:00:00 [facility] dical (Prevnar 13) Branch HEPLISAV HEP B, 2020-04-21 Completed [facility] y of ADULT 2 DOSE, IM 00:00:00 [facility] dical Branch Influenza Virus 2020-04-21 Completed [facility]it y of Vaccine Quad .5 mL 00:00:00 [facility] IM 6+ MO Branch Pneumococcal 13 2020-04-21 Completed [facility] y of Conjugate, PCV13 00:00:00 [facility] dical (Prevnar 13) Branch HEPLISAV HEP B, 2020-04-21 Completed [facility] y of ADULT 2 DOSE, IM 00:00:00 [facility] dical Branch Influenza Virus 2020-04-21 Completed [facility]it y of Vaccine Quad .5 mL 00:00:00 [facility] IM 6+ MO Branch Pneumococcal 13 2020-04-21 Completed [facility]it y of Conjugate, PCV13 00:00:00 [facility] dical (Prevnar 13) Branch HEPLISAV HEP B, 2020-04-21 Completed [facility] y of ADULT 2 DOSE, IM 00:00:00 [facility] dicut Branch Influenza Virus 2020-04-21 Completed [facility] y of Vaccine Quad .5 mL 00:00:00 [facility] 6+ MO Branch Pneumococcal 13 2020-04-21 Completed [facility]it y of Conjugate, PCV13 00:00:00 [facility] dical (Prevnar 13) Branch HEPLISAV HEP B, 2020-04-21 Completed [facility] y of ADULT 2 DOSE, IM 00:00:00 [facility] Influenza Virus 2020-04-21 Completed [facility]it y of Vaccine Quad .5 mL 00:00:00 [facility] IM 6+ MO Branch Pneumococcal 13 2020-04-21 Completed [facility]it y of Conjugate, PCV13 00:00:00 [facility] dical (Prevnar 13) Branch HEPLISAV HEP B, 2020-04-21 Completed [facility] y of ADULT 2 DOSE, IM 00:00:00 [facility] dical Branch Influenza Virus 2020-04-21 Completed [facility]it y of Vaccine Quad .5 mL 00:00:00 [facility] IM 6+ MO Branch Pneumococcal 13 2020-04-21 Completed [facility]it y of Conjugate, PCV13 00:00:00 [facility] dical (Prevnar 13) Branch HEPLISAV HEP B, 2020-04-21 Completed [facility] ADULT 2 DOSE, [facility]21 Com[facility] y of Vaccine Quad .5 mL 00:00:00 [facility] IM 6+ MO Branch Pneumococcal 13 2020-04-21 Completed [facility]it y of Conjugate, PCV13 00:00:00 [facility] dical (Prevnar 13) Branch HEPLISAV HEP B, 2020-04-21 Completed [facility] y of ADULT 2 DOSE, IM 00:00:00 [facility] dical Branch Influenza Virus 2020-04-21 Completed [facility]it y of Vaccine Quad .5 mL 00:00:00 [facility] IM 6+ MO Branch Pneumococcal 13 2020-04-21 Completed [facility]it y of Conjugate, PCV13 00:00:00 [facility] dical (Prevnar 13) Branch HEPLISAV HEP B, 2020-04-21 Completed [facility]it y of ADULT 2 DOSE, IM 00:00:00 [facility] dical Branch Influenza Virus 2020-04-21 Completed [facility]it y of Vaccine Quad .5 mL 00:00:00 [facility] IM 6+ MO Branch Pneumococcal 13 2020-04-21 Completed [facility]it y of Conjugate, PCV13 00:00:00 [facility] dicut (Prevnar 13) Branch HEPLISAV HEP B, 2020-04-21 Completed [facility] y of ADULT 2 DOSE, IM 00:00:00 [facility] Influenza Virus 2020-04-21 Completed [facility]it y of Vaccine Quad .5 mL 00:00:00 [facility] IM 6+ MO Branch Pneumococcal 13 2020-04-21 Completed [facility]it y of Conjugate, PCV13 00:00:00 [facility] dical (Prevnar 13) Branch HEPLISAV HEP B, 2020-04-21 Completed [facility]it y of ADULT 2 DOSE, IM 00:00:00 [facility] Influenza Virus 2020-04-21 Completed [facility]it y of Vaccine Quad .5 mL 00:00:00 [facility] IM 6+ MO Branch Pneumococcal 13 2020-04-21 Completed [facility]it y of Conjugate, PCV13 00:00:00 [facility] dical (Prevnar 13) Branch HEPLISAV HEP B, 2020-04-21 Completed [facility]it y of ADULT 2 DOSE, IM 00:00:00 [facility] dicut Branch Influenza Virus 2020-04-21 Completed [facility]it y of Vaccine Quad .5 mL 00:00:00 [facility] IM 6+ MO Branch Pneumococcal 13 2020-04-21 Completed [facility]it y of Conjugate, PCV13 00:00:00 [facility] dical (Prevnar 13) Branch HEPLISAV HEP B, 2020-04-21 Completed [facility] y of ADULT 2 DOSE, IM 00:00:00 [facility] dicut Branch Influenza Virus 2020-04-21 Completed [facility] y of Vaccine Quad .5 mL 00:00:00 [facility] IM 6+ MO Branch Pneumococcal 13 2020-04-21 Completed [facility] y of Conjugate, PCV13 00:00:00 [facility] dical (Prevnar 13) Branch HEPLISAV HEP B, 2020-04-21 Completed [facility] y of ADULT 2 DOSE, IM 00:00:00 [facility] dical Branch Influenza Virus 2020-04-21 Completed [facility] y of Vaccine Quad .5 mL 00:00:00 [facility] IM 6+ MO Branch Pneumococcal 13 2020-04-21 Completed [facility] y of Conjugate, PCV13 00:00:00 [facility] dical (Prevnar 13) Branch HEPLISAV HEP B, 2020-04-21 Completed [facility] y of ADULT 2 DOSE, IM 00:00:00 [facility] dical Branch Influenza Virus 2020-04-21 Completed [facility] y of Vaccine Quad .5 mL 00:00:00 [facility] IM 6+ MO Branch Pneumococcal 13 2020-04-21 Completed [facility] y of Conjugate, PCV13 00:00:00 [facility] dical (Prevnar 13) Branch HEPLISAV HEP B, 2020-04-21 Completed [facility] ADULT 2 DOSE, [facility] 00:[facility] 2020[facility]21 Completed [facility] y of Vaccine Quad .5 mL 00:00:00 [facility] IM 6+ MO Branch Pneumococcal 13 2020-04-21 Completed [facility] y of Conjugate, PCV13 00:00:00 [facility] dical (Prevnar 13) Branch HEPLISAV HEP B, 2020-04-21 Completed [facility] y of ADULT 2 DOSE, IM 00:00:00 [facility] dical Branch Influenza Virus 2020-04-21 Completed [facility] y of Vaccine Quad .5 mL 00:00:00 [facility] IM 6+ MO Branch Pneumococcal 13 2020-04-21 Completed [facility] y of Conjugate, PCV13 00:00:00 [facility] dical (Prevnar 13) Branch HEPLISAV HEP B, 2020-04-21 Completed [facility] y of ADULT 2 DOSE, IM 00:00:00 [facility] dical Branch Influenza Virus 2020-04-21 Completed [facility] y of Vaccine Quad .5 mL 00:00:00 [facility] IM 6+ MO Branch Pneumococcal 13 2020-04-21 Completed [facility] y of Conjugate, PCV13 00:00:00 [facility] dical (Prevnar 13) Branch HEPLISAV HEP B, 2020-04-21 Completed [facility] y of ADULT 2 DOSE, IM 00:00:00 [facility] dical Branch Influenza Virus 2020-04-21 Completed [facility] y of Vaccine Quad .5 mL 00:00:00 [facility] IM 6+ MO Branch Pneumococcal 13 2020-04-21 Completed [facility] y of Conjugate, PCV13 00:00:00 [facility] dical (Prevnar 13) Branch HEPLISAV HEP B, 2020-04-21 Completed [facility] y of ADULT 2 DOSE, IM 00:00:00 [facility] dical Branch Influenza Virus 2020-04-21 Completed [facility] y of Vaccine Quad .5 mL 00:00:00 [facility] IM 6+ MO Branch Pneumococcal 13 2020-04-21 Completed [facility] y of Conjugate, PCV13 00:00:00 [facility] dical (Prevnar 13) Branch HEPLISAV HEP B, 2020-04-21 Completed [facility] ADULT 2 DOSE, IM 00:00[facility] 2020-04-21 Completed [facility] y of Vaccine Quad .5 mL 00:00:00 [facility] IM 6+ MO Branch Pneumococcal 13 2020-04-21 Completed [facility] y of Conjugate, PCV13 00:00:00 [facility] dical (Prevnar 13) Branch HEPLISAV HEP B, 2020-04-21 Completed [facility] of ADULT 2 DOSE, IM 00:00[facility]00 [facility] Influ[facility] Virus 2020-04-21 Completed [facility] y of Vaccine Quad .5 mL 00:00:00 [facility] IM 6+ MO Branch Pneumococcal 13 2020-04-21 Completed [facility] y of Conjugate, PCV13 00:00:00 [facility] dicut (Prevnar 13) Branch HEPLISAV HEP B, 2020-04-21 Completed [facility]it y of ADULT 2 DOSE, IM 00:00:00 [facility] dicut Branch Influenza Virus 2020-04-21 Completed [facility] y of Vaccine Quad .5 mL 00:00:00 [facility] IM 6+ MO Branch Pneumococcal 13 2020-04-21 Completed [facility] y of Conjugate, PCV13 00:00:00 [facility] dical (Prevnar 13) Branch HEPLISAV HEP B, 2020-04-21 Completed [facility]it y of ADULT 2 DOSE, IM 00:00:00 [place] [facility] Influenza Virus 2020-04-21 Completed [facility]it y of Vaccine Quad .5 mL 00:00:00 [facility] IM 6+ MO Branch Pneumococcal 13 2020-04-21 Completed [facility] y of Conjugate, PCV13 00:00:00 [facility] dical (Prevnar 13) Branch HEPLISAV HEP B, 2020-04-21 Completed [facility] y of ADULT 2 DOSE, IM 00:00:00 [facility] dicut Branch Influenza Virus 2020-04-21 Completed [facility] y of Vaccine Quad .5 mL 00:00:00 [facility] IM 6+ MO Branch Pneumococcal 13 2020-04-21 Completed [facility] y of Conjugate, PCV13 00:00:00 [facility] dical (Prevnar 13) Branch HEPLISAV HEP B, 2020-04-21 Completed [facility] y of ADULT 2 DOSE, IM 00:00:00 [facility] Vital Signs Vital Name Observation Time Observation Value Comments Source Systolic blood 2022-09-06 16:40:00 138 mm[Hg] [facility] Diastolic blood 2022-09-06 16:40:00 80 mm[Hg] [facility] Heart rate 2022-09-06 16:40:00 90 /min [facility] Body temperature 2022-09-06 16:40:00 36.33 [facility] Respiratory rate 2022-09-06 16:40:00 16 /min [facility] Body height 2022-09-06 16:40:00 172.7 cm [facility] Body weight 2022-09-06 16:40:00 114.805 [facility] BMI 2022-09-06 16:40:00 38.48 kg/m2 [facility] Oxygen saturation in 2022-09-06 16:40:00 96 /min [facility] Arterial blood by [facility] Pulse oximetry Branch Systolic blood 2022-03-08 14:42:00 128 mm[Hg] Univer [facility] Diastolic blood 2022-03-08 14:42:00 80 mm[Hg] Unive rsity of [facility] Heart rate 2022-03-08 14:42:00 86 /min [facility] Body temperature 2022-03-08 14:39:00 36.5 [facility]ah[facility] Respiratory rate 2022-03-08 14:39:00 18 /min [facility] Body height 2022-03-08 14:39:00 175.3 cm [facility] Body weight 2022-03-08 14:39:00 115.531 kg [facility] BMI 2022-03-08 14:39:00 37.61 kg/m2 [facility] Oxygen saturation in 2022-03-08 14:39:00 99 /min [facility] Arterial blood by [facility] Pulse oximetry Branch Procedures Procedure Date / Time Performing Clinician Source Performed COMP. METABOLIC PANEL 2022-03-08 16:31:00 Mery Walton [facility] ([id number]) [facility] CBC WITH DIFF 2022-03-08 16:31:00 Mery Walton [facility] CD4 SUBSET ASSAY 2022-03-08 16:31:00 Mery Walton [facility] SYPHILIS FOLLOW UP 2022-03-08 16:31:00 Mery Walton [facility] HCV ANTIBODY 2022-03-08 16:31:00 Mery Walton [facility] GC & CHLAMYDIA AMPLIFIED 2022-03-08 16:31:00 Mery Walton [facility] HUMAN IMMUNODEFICIENCY 2022-03-08 16:31:00 Mery Walton [facility] VIRUS 1 (HIV-1) BY [facility] h QUANTITATIVE NAAT FLU VACC ([id number]), 6 2022-03-08 15:16:08 Mery Walton [facility] MO-64 YRS, .5ML, IM, QUAD Medica l Branch (FLUCELVAX) SARS-COV-2 COVID-19 2022-03-08 15:16:08 Mery Walton [facility] PAOLA-SUCROSE VACCINE 12 [facility] Branch YRS+, BIVALENT 0.3ML, IM, (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) Encounters Start End Encounter Admission Attending Care Care Encounter Source Date/Time Date/Time Type Type Clinicians Facility Department ID 2022-03-01 Outpatient CHW CHW [id number] [place] 12:43:18 0404 [facility] 2020-04-13 Inpatient U [facility] [id number] Univers 22:09:00 isael BELTRAN of [facility] 2022-10-02 2022-10-02 Lucila Grajeda [facility] 1.2.840.114 10 [id number] Univers 00:00:00 00:00:00 Brandin L Y HEALTH 350.1.13.10 [place] [id number] [address] 2022-09-27 2022-09-27 Case Nicci, [facility] 1.2.901.347 [id number] Univers 00:00:00 00:00:00 Management Brandin L Y HEALTH 350.1.13.10 [place] [id number] [address] 2022-09-20 2022-09-20 Doreen Walton, [facility] 1.2.840.114 102 [id number] Univers 00:00:00 00:00:00 Mery Y HEALTH 350.1.13.10 i ty [place] [id number] [address] 2022-09-20 2022-09-20 Case Jen [facility] 1.2.840.114 102 [id number] Univers 00:00:00 00:00:00 Management Mery Y HEALTH 350.1.13.10 ity [place] [id number] [address] 2022-09-07 2022-09-07 Case Yazan Gomez, [facility] 1.2.840.114 1 [id number] Univers 00:00:00 00:00:00 Management Lorrie R Y HEALTH 350.1.13.10 it[place] [id number] [address] 2022-09-06 2022-09-06 Office [facility] 1.2.840.114 [id number] Univers 11:30:00 12:00:00 Visit Mery Y HEALTH 350.1.13.10 i ty [place] [id number] [address] 2022-09-06 2022-09-06 Outpatient Abner WALTON [facility] [id number] Univers 11:30:00 11:30:00 MERY ity of [facility] 2022-09-06 2022-09-06 Telephone Jen [facility] 1.2.840.114 1 [id number] Univers 00:00:00 00:00:00 Mery Y HEALTH 350.1.13.10 i ty [place] [id number] [address] 2022-09-06 2022-09-06 Case Lorenzo, [facility] 1.2.840.114 1 [id number] Univers 00:00:00 00:00:00 Management Nechelle Y HEALTH 350.1.13.10 ity [place] [id number] [address] 2022-09-05 2022-09-05 Case Lorenzo, [facility] 1.2.840.114 1 [id number] Univers 00:00:00 00:00:00 Management Nechelle Y HEALTH 350.1.13.10 ity [place] [id number] [address] 2022-08-16 2022-08-16 Case Shannon, [facility] 1.2.840.114 10 [id number] Univers 00:00:00 00:00:00 Management Annie L Y HEALTH 350.1.13.10 ity [place] [id number] [address] 2022-07-26 2022-07-26 Case Nicci [facility] 1.2.329.547 [id number] Univers 00:00:00 00:00:00 Management Brandin L Y HEALTH 350.1.13.10 ity [place] [id number] [address] 2022-07-16 2022-07-16 Case Lorenzo, [facility] 1.2.840.114 1 [id number] Univers 00:00:00 00:00:00 Management Nechelle Y HEALTH 350.1.13.10 it[place] [id number] [address] 2022-07-09 2022-07-09 Zaina WILDE [facility] [id number] Univers 09:00:00 09:00:00 JOSEFINA kirkland [facility] 2022-07-05 2022-07-05 Case Lorenzo, [facility] 1.2.840.114 1 [id number] Univers 00:00:00 00:00:00 Management Nechelle Y HEALTH 350.1.13.10 ity [place] [id number] [address] 2022-07-05 2022-07-05 Case Nicci [facility] 1.2.535.668 [id number] Univers 00:00:00 00:00:00 Management Brandin L Y HEALTH 350.1.13.10 ity [place] [id number] [address] 2022-06-25 2022-06-25 Telephone Nicci [facility] 1.2.840.114 10 [id number] Univers 00:00:00 00:00:00 Brandin L Y HEALTH 350.1.13.10 ity [place] [id number] [address] 2022-06-21 2022-06-21 Case Lorenzo, [facility] 1.2.840.114 9 [id number] Univers 00:00:00 00:00:00 Management Nechelle Y HEALTH 350.1.13.10 ity [place] [id number] [address] 2022-06-21 2022-06-21 Case Nicci [facility] 1.2.589.499 [id number] Univers 00:00:00 00:00:00 Management Brandin L Y HEALTH 350.1.13.10 ity [place] [id number] [address] 2022-05-30 2022-05-30 Outpatient Abner WALL [facility] [id number] Univers 10:00:00 10:00:00 TRANSON [facility] 2022-05-24 2022-05-24 Case Nicci, [facility] 1.2.338.268 [id number] Univers 00:00:00 00:00:00 Management Brandin L Y HEALTH 350.1.13.10 ity [place] [id number] [address] 2022-05-24 2022-05-24 Case Lorenzo, [facility] 1.2.840.114 9 [id number] Univers 00:00:00 00:00:00 Management Nechelle Y HEALTH 350.1.13.10 ity [place] [id number] [address] 2022-05-02 2022-05-02 Refbolivar Wall, [facility] 1.2.449.339 [id number] Univers 00:00:00 00:00:00 [facility] 350.1.13.10 i [place] [id number] [address] 2022-04-30 2022-04-30 Outpatient R SANJEEV [facility] [id number] Univers 09:00:00 09:53:08 JOSEFINA [facility] 2022-04-30 2022-04-30 Office Dillan Palacio [facility] 1.2.840.11 4 [id number] Univers 09:00:00 09:53:08 Visit Josefina Wilde [facility] 350.1.13.10 ity of [place] [id number] [address] 2022-03-25 2022-03-25 Case Jeff [facility] 1.2.653.436 [id number] Univers 00:00:00 00:00:00 Management Awilda L Y HEALTH 350.1.13.10 ity [place] [id number] [address] 2022-03-15 2022-03-15 Telephone KERI Walton 1.2.840.114 9 [id number] Univers 00:00:00 00:00:00 Mery Y HEALTH 350.1.13.10 i ty [place] [id number] [address] 2022-03-13 2022-03-13 Telephone Jen KERI 1.2.840.114 9 [id number] Univers 00:00:00 00:00:00 Mery Y HEALTH 350.1.13.10 i ty [place] [id number] [address] 2022-03-08 2022-03-[address] [facility] 1.2.840.114 9 [id number] Univers 11:15:00 11:30:00 Visit Mery Walton Jace HEALTH 350.1.13.10 ity of [place] [id number] [place] [address] [place] 2022-03-08 2022-03-08 Outpatient Abner WALTON [facility] [id number] Univers 09:30:00 10:54:43 MERY [facility] 2022-03-08 2022-03-08 Office LUIS Walton 1.2.840.114 [id number] Univers 09:30:00 10:54:43 Visit [facility] HEALTH 350.1.13.10 i ty [place] [id number] [address] 2022-03-07 2022-03-07 Telephone LUIS Ortega 1.2.840.114 [id number] Univers 00:00:00 00:00:00 [facility] Y HEALTH 350.1.13.10 ity [place] [id number] [address] 2022-02-20 2022-02-20 Case LUIS Ortega 1.2.840.114 96 [id number] Univers 00:00:00 00:00:00 Management Annie L Y HEALTH 350.1.13.10 ity [place] [id number] [address] 2022-02-14 2022-02-14 [facility] 1.2.840.114 9 [id number] Univers 11:30:00 12:00:00 ne Visit Transon Y HEALTH 350.1.13.10 ity of [place] [id number] [address] 2022-02-14 2022-02-14 [facility] [id number] Univers 11:30:00 11:30:00 TRANSON ity of [facility] 2022-02-13 2022-02-13 [facility] 1.2.840.114 [id number] Univers 00:00:00 00:00:00 Annie L Y HEALTH 350.1.13.10 ity [place] [id number] [address] 2022-02-13 2022-02-13 Doreen Walton, [facility] 1.2.840.114 [id number] Univers 00:00:00 00:00:00 Mery Y HEALTH 350.1.13.10 i ty [place] [id number] [address] 2022-01-24 2022-01-24 Telephone [facility]azan [facility] 1.2.840.114 [id number] Univers 00:00:00 00:00:00 Lorrie R Y HEALTH 350.1.13.10 ity [place] [id number] [address] 2022-01-22 2022-01-22 Rhett Grajeda, [facility] 1.2.026.037 [id number] Univers 00:00:00 00:00:00 Management Brandin L Y HEALTH 350.1.13.10 ity of [place] [id number] [address] 2022-01-19 2022-01-19 Telephone Yazan Gomez, [facility] 1.2.840.114 [id number] Univers 00:00:00 00:00:00 Lorrie R Y HEALTH 350.1.13.10 ity of [place] [id number] [address] 2022-01-18 2022-01-18 Case Yazan Gomez, [facility] 1.2.840.114 9 [id number] Univers 00:00:00 00:00:00 Management Lorrie R Y HEALTH 350.1.13.10 ity [place] [id number] [address] 2022-01-09 2022-01-09 Refill Mat, [facility] 1.2.435.756 [id number] Univers 00:00:00 00:00:00 Tony Y HEALTH 350.1.13.10 ity of [place] [id number] [address] 2022-01-04 2022-01-04 Case Lorenzo, [facility] 1.2.840.114 9 [id number] Univers 00:00:00 00:00:00 Management Nechelle Y HEALTH 350.1.13.10 ity of [place] [id number] [address] 2021-12-28 2021-12-28 Case Nicci, [facility] 1.2.192.747 [id number] Univers 00:00:00 00:00:00 Management Brandin L Y HEALTH 350.1.13.10 ity of [place] [id number] [address] 2021-12-23 2021-12-23 Telephone Jen [facility] 1.2.840.114 9 [id number] Univers 00:00:00 00:00:00 Mery Y HEALTH 350.1.13.10 i ty of [place] [id number] [address] 2021-12-23 2021-12-23 Telephone Jen [facility] 1.2.840.114 9 [id number] Univers 00:00:00 00:00:00 Inkom Y HEALTH 350.1.13.10 i ty [place] [id number] [address] 2021-12-07 2021-12-07 [facility] 1.2.840.114 [id number] Univers 00:00:00 00:00:00 Annie L Y HEALTH 350.1.13.10 ity of [place] [id number] [address] 2021-12-07 2021-12-07 Case Shannon, [facility] 1.2.840.114 [id number] Univers 00:00:00 00:00:00 Management Annie L Y HEALTH 350.1.13.10 ity [place] [id number] [address] 2021-11-29 2021-11-29 Telemedici Mat, [facility] 1.2.840.114 9 [id number] Univers 14:00:00 14:30:00 ne Visit Tony Y HEALTH 350.1.13.10 ity of [place] [id number] [address] 2021-11-29 2021-11-29 Outpatient R SELF, [facility] [id number] Univers 14:00:00 14:00:00 TONY ity o f [facility] 2021-11-28 2021-11-28 Telephone Ortega, [facility] 1.2.840.114 [id number] Univers 00:00:00 00:00:00 Annie L Y HEALTH 350.1.13.10 ity of [place] [id number] [address] 2021-11-01 2021-11-01 Case Shannon [facility] 1.2.840.114 [id number] Univers 00:00:00 00:00:00 Management Annie L Y HEALTH 350.1.13.10 ity of [place] [id number] [address] 2021-11-01 2021-11-01 Case Lorenzo, [facility] 1.2.840.114 9 [id number] Univers 00:00:00 00:00:00 Management Nechelle Y HEALTH 350.1.13.10 ity of [place] [id number] [address] 2021-10-18 2021-10-18 Case Shannon, [facility] 1.2.840.114 93 [id number] Univers 00:00:00 00:00:00 Management Annie L Y HEALTH 350.1.13.10 ity of [place] [id number] [address] 2021-10-18 2021-10-18 Case Lorenzo, [facility] 1.2.840.114 9 [id number] Univers 00:00:00 00:00:00 Management Nechelle Y HEALTH 350.1.13.10 ity of [place] [id number] [address] 2021-10-11 2021-10-11 Telemedici Self, [facility] 1.2.840.114 9 [id number] Univers 13:00:00 13:30:00 ne Visit Tony Jace HEALTH 350.1.13.10 ity of [place] [id number] [address] 2021-10-11 2021-10-11 Outpatient R SELF, [facility] [id number] Univers 13:00:00 13:00:00 TONY ity o f [facility] 2021-08-24 2021-08-24 Telephone Jen [facility] 1.2.840.114 9 [id number] Univers 00:00:00 00:00:00 Mery Y HEALTH 350.1.13.10 i ty [place] [id number] [address] 2021-08-18 2021-08-18 [facility] [id number] Univers 10:45:00 13:48:33 ROBERTA pelaezjcae [facility] 2021-08-18 2021-08-18 Office Dillan Palacio [facility] 1.2.840.11 4 [id number] Univers 10:45:00 11:00:00 Visit AlmasRoberta Jace HEALTH 350.1.13.1 0 ity of [place] [id number] [address] 2021-08-18 2021-08-18 Outpatient [facility] [id number] Univers 10:45:00 10:45:00 ROBERTA isael [facility] 2021-08-18 2021-08-18 Letter KERI Palacio 1.2.873.089 [id number] Univers 00:00:00 00:00:00 (Out) Dillan Sweet HEALTH 350.1.13.10 i ty [place] [id number] [address] 2021-08-16 2021-08-16 Telemedici Self, [facility] 1.2.840.114 9 [id number] Univers 15:30:00 16:00:00 ne Visit Tony HEALTH 350.1.13.10 ity [place] [id number] [address] 2021-08-16 2021-08-16 Outpatient R MAT [facility] [id number] Univers 15:30:00 15:30:00 TONY kirkland o f [facility] 2021-08-15 2021-08-15 Telephone Shannon, [facility] 1.2.840.114 [id number] Univers 00:00:00 00:00:00 Annie Stanford Y HEALTH 350.1.13.10 ity [place] [id number] [address] 2021-08-15 2021-08-15 Telephone Jen [facility] 1.2.840.114 9 [id number] Univers 00:00:00 00:00:00 Mery Sweet HEALTH 350.1.13.10 i ty of [place] [id number] [place] [address] [place] 2021-08-09 2021-08-09 Outpatient R MAT, [facility] [id number] Univers 13:30:00 13:30:00 TONY pelaezy o f [facility] 2021-08-08 2021-08-08 Telephone Shannon [facility] 1.2.840.114 [id number] Univers 00:00:00 00:00:00 Annie L Y HEALTH 350.1.13.10 ity of [place] [id number] [place] [address] [place] 2021-08-03 2021-08-[address] [facility]IT 1.2.840.114 9 [id number] Univers 13:15:00 13:30:00 Visit Jen Mery Sweet HEALTH 350.1.13.10 ity [place] [id number] [facility] [address] 2021-08-03 2021-08-03 Nurse Visit, [facility] Id Nurse [facility] 1.2. 840.114 [id number] Univers 13:00:00 13:15:00 Visit Jen Mery Sweet HEALTH 350.1.13.10 ity of [place] [id number] [place] [address] [place] 2021-08-03 2021-08-03 Office Jen [facility] 1.2.840.114 [id number] Univers 11:00:00 11:30:00 Visit [facility] HEALTH 350.1.13.10 i ty of [place] [id number] [place] [address] [place] 2021-08-03 2021-08-03 Outpatient R JEN [facility] [id number] Univers 11:00:00 11:00:00 MERY kirkland of [facility] 2021-08-02 2021-08-02 Case Shannon, [facility] 1.2.840.114 [id number] Univers 00:00:00 00:00:00 Management Annie L Y HEALTH 350.1.13.10 ity of [place] [id number] [facility] [address] 2021-08-02 2021-08-02 Telephone Otrega [facility] 1.2.840.114 [id number] Univers 00:00:00 00:00:00 Annie L Y HEALTH 350.1.13.10 ity of [place] [id number] [place] [address] [place] 2021-07-13 2021-07-13 Outpatient R GILMER [facility] [id number] Univers 11:00:00 11:54:59 KEVIN ity of [facility] 2021-07-13 2021-07-13 Office Dillan Palacio [facility] 1.2.840.11 4 [id number] Univers 11:00:00 11:54:59 Visit Kevin Scherer HEALTH 350.1.13.10 ity of [place] [id number] [place] [address] [place] 2021-07-13 2021-07-13 Case Yazan Gomez, [facility] 1.2.840.114 9 [id number] Univers 00:00:00 00:00:00 Management Lorrie R Y HEALTH 350.1.13.10 ity of [place] [id number] [place] [address] [place] 2021-06-28 2021-06-28 [facility] Shannon [facility] 1.2.840.114 90 [id number] Univers 00:00:00 00:00:00 Management Annie L Y HEALTH 350.1.13.10 ity of [place] [id number] [place] [address] [place] 2021-06-21 2021-06-21 Telemedici Mat, [facility] 1.2.840.114 8 [id number] Univers 16:00:00 17:00:00 md Visit Tony Y HEALTH 350.1.13.10 ity [place] [id number] [address] 2021-06-21 2021-06-21 Outpatient R MAT [facility] [id number] Univers 16:00:00 16:00:00 TONY ity o f [facility] 2021-06-21 2021-06-21 Rhett Glover, [facility] 1.2.840.114 9 [id number] Univers 00:00:00 00:00:00 Management Lorrie R Y HEALTH 350.1.13.10 ity of [place] [id number] [place] [address] [place] 2021-06-21 2021-06-21 Rhett Ventura, [facility] 1.2.840.114 9 [id number] Univers 00:00:00 00:00:00 Management Nechelle Y HEALTH 350.1.13.10 ity of [place] [id number] [place] [address] [place] 2021-06-06 2021-06-06 Doreen Rivero, [facility] 1.2.378.826 [id number] Univers 00:00:00 00:00:00 Tony HEALTH 350.1.13.10 [place] [id number] [address] 2021-05-23 2021-05-23 [facility] [id number] Univers 14:00:00 14:57:13 GELA kirkland [facility] 2021-05-23 2021-05-23 Office Dillan Palacio [facility] 1.2.840.11 4 [id number] Univers 14:00:00 14:57:13 Visit Gela Moreno HEALTH 350.1.13 .10 ity of [place] [id number] [address] 2021-05-23 2021-05-23 Outpatient [facility] [id number] Univers 14:00:00 14:57:13 GELA itjace [facility] 2021-05-23 2021-05-23 Letter Hakeem [facility] 1.2.961.480 [id number] Univers 00:00:00 00:00:00 (Out) Dillan HEALTH 350.1.13.10 i ty of [place] [id number] [facility] [address] 2021-05-23 2021-05-23 Case Shannon, [facility] 1.2.840.114 [id number] Univers 00:00:00 00:00:00 Management Annie L Y HEALTH 350.1.13.10 ity of [place] [id number] [facility] [address] 2021-05-16 2021-05-16 Telephone Yazna Gomez, [facility] 1.2.840.114 [id number] Univers 00:00:00 00:00:00 Lorrie R Y HEALTH 350.1.13.10 ity of [place] [id number] [place] [address] [place] 2021-05-04 2021-05-04 Outpatient Abner WALTON [facility] [id number] Univers 13:10:00 13:10:00 MERY kirkland [facility] 2021-05-04 2021-05-04 Imm/Inj Vaccine, Gal [facility] 1.2.840 .114 [id number] Univers 12:37:51 12:47:51 Visit Mery Walton [facility] 350.1.13.10 ity of [place] [id number] [facility] [address] [place] 2021-05-04 2021-05-[address] [facility] 1.2.840.114 [id number] Univers 12:10:47 12:25:47 Visit Mery Walton Jace [facility] 350.1.13.10 [place] [id number] [facility] [address] 2021-05-04 2021-05-04 Office KERI Walton 1.2.840.114 [id number] Univers 10:34:49 12:06:28 Visit Mery [facility] 350.1.13.10 i ty of [place] [id number] [place] [address] [place] 2021-05-04 2021-05-04 Outpatient R WALTON, [facility] [id number] Univers 10:30:00 12:06:28 MERY ity of [facility] 2021-05-04 2021-05-04 Case Yazan Gomez, UNIVERSIT 1.2.840.114 [id number] Univers 00:00:00 00:00:00 Management Lorrie R Y HE[facility] 350.1.13.10 [place] [id number] [address] 2021-05-03 2021-05-03 Case Yazan Gomez, [facility]ERS[facility] 1.2.840.114 [id number] Univers 00:00:00 00:00:00 Management Lorrie R Y [facility] 350.1.13.10 [place] [id number] [address] 2021-05-01 2021-05-01 Case Shannon, [facility]ERS[facility] 1.2.840.114 [id number] Univers 00:00:00 00:00:00 Management Annie L Y [facility] 350.1.13.10 [place] [id number] [address] 2021-04-26 2021-04-26 Outpatient R SELF, [facility] [id number] Univers 16:00:00 16:00:00 TONY kirkland o f [facility] 2021-04-26 2021-04-26 Office Self, [facility] 1.2.591.864 [id number] Univers 09:48:49 10:48:49 Visit Tony HEALTH 350.1.13.10 [place] [id number] [address] 2021-04-25 2021-04-25 Telephone Nicci, [facility] 1.2.840.114 [id number] Univers 00:00:00 00:00:00 Brandin L Y [facility] 350.1.13.10 [place] [id number] [address] 2021-03-28 2021-03-28 Nurse Visit, [facility] Id Nurse UN[facility]ERSIT 1.2. 840.114 [id number] Univers 10:31:17 10:46:17 Visit Mery Walton Jace HEALTH 350.1.13.10 ity [place] [id number] [place] [address] [place] 2021-03-28 2021-03-28 Outpatient R JEN [facility] [id number] Univers 10:30:00 10:30:00 MERY ity [facility] 2021-03-28 2021-03-28 Case Yazan Gomez, [facility]ERS[facility] 1.2.840.114 [id number] Univers 00:00:00 00:00:00 Management Lorrie R Y [facility]ALTH 350.1.13.10 [place] [id number] [address] 2021-03-27 2021-03-27 Case Yazan Gomez, [facility]ERS[facility] 1.2.840.114 [id number] Univers 00:00:00 00:00:00 Management Lorrie R Y [facility] 350.1.13.10 [place] [id number] [facility] [address] 2021-01-30 2021-01-30 Case Shannon UN[facility]ERSIT 1.2.840.114 [id number] Univers 00:00:00 00:00:00 Management Annie L [facility] 350.1.13.10 [place] [phone] [place] [address] [place] 2021-01-26 2021-01-[address] [facility]ERSIT 1.2.840.114 [id number] Univers 11:22:15 11:37:15 Visit Mery Walton Jace HEALTH 350.1.13.10 [place] [id number] [facility] [address] 2021-01-26 2021-01-26 Office KERI WaltonIT 1.2.840.114 [id number] Univers 10:20:02 11:19:23 Visit Mery Jace HEALTH 350.1.13.10 i [place] [id number] [address] 2021-01-26 2021-01-26 Outpatient Abner WALTON [facility] [id number] Univers 10:30:00 10:30:00 MERY ity of [facility] 2021-01-26 2021-01-26 Case Shannon, [facility]ERSIT 1.2.840.114 [id number] Univers 00:00:00 00:00:00 Management Annie L Y HEALTH 350.1.13.10 it[place] [id number] [address] 2021-01-25 2021-01-25 [facility] 1.2.840.114 [id number] Univers 00:00:00 00:00:00 Lorrie R Y HEALTH 350.1.13.10 it[place] [id number] [address] 2021-01-19 2021-01-19 [facility] Shannon, [facility]ERSIT 1.2.840.114 [id number] Univers 00:00:00 00:00:00 Management Annie L Y HEALTH 350.1.13.10 it[place] [id number] [address] 2021-01-10 2021-01-10 [facility] 1.2.840.114 [id number] Univers 00:00:00 00:00:00 Annie L Y HEALTH 350.1.13.10 it[place] [id number] [address] 2021-01-10 2021-01-10 [facility] 1.2.840.114 [id number] Univers 00:00:00 00:00:00 Annie L Y HEALTH 350.1.13.10 it[place] [id number] [address] 2020-12-29 2020-12-29 Outpatient Abner WALTON [facility] [id number] Univers 09:00:00 09:00:00 MERY [facility] 2020-12-28 2020-12-28 Telephone Visits, [facility]IT 1.2.840.11 [id number] Univers 00:00:00 00:00:00 Id Care Y HEALTH 350.1.13.10 i ty of Mgmt [place] [id number] [address] 2020-12-26 2020-12-26 Case Shannon, [facility]ERS[facility] 1.2.840.114 [id number] Univers 00:00:00 00:00:00 Management Annie L Y HEALTH 350.1.13.10 it[place] [id number] [address] 2020-12-01 2020-12-01 Outpatient Abner WALTON, [facility] [id number] Univers 10:30:00 10:30:00 MERY [facility] 2020-11-29 2020-11-29 Rhett Trotter, [facility]ERS[facility] 1.2.352.594 [id number] Univers 00:00:00 00:00:00 Management Cintia Y HEALTH 350.1.13.10 it[place] [id number] [address] 2020-10-12 2020-10-12 Rhett Grajeda, [facility] 1.2.324.192 [id number] Univers 00:00:00 00:00:00 Management Brandin L Y HEALTH 350.1.13.10 ity [place] [id number] [address] 2020-10-03 2020-10-03 Outpatient Abner MCRAE [facility] [id number] Univers 10:50:00 10:59:54 FRANCIA [facility] 2020-10-03 2020-10-03 Outpatient Abner MCRAE [facility] [id number] Univers 10:50:00 10:50:00 FRANCIA [facility] 2020-09-05 2020-09-05 Outpatient Abner MCRAE, [facility] [id number] Univers 10:50:00 10:50:00 FRANCIA itjace [facility] 2020-09-05 2020-09-05 Outpatient R CLEMENTINA, [facility] [id number] Univers 10:50:00 10:49:55 FRANCIA ity [facility] 2020-09-01 2020-09-[address] [facility]IT 1.2.840.114 [id number] Univers 12:00:16 12:15:16 Visit Mery Walton Jace HEALTH 350.1.13.10 ity [place] [id number] [facility] [address] 2020-09-01 2020-09-01 Office Jen [facility] 1.2.840.114 [id number] Univers 10:56:13 11:26:13 Visit Mery Y HEALTH 350.1.13.10 i ty [place] [id number] [place] [address] [place] 2020-09-01 2020-09-01 Outpatient Abner WALTON, [facility] [id number] Univers 10:30:00 10:30:00 MERY pelaezjace [facility] 2020-08-31 2020-08-31 Case [facility]an [facility] 1.2.840.114 [id number] Univers 00:00:00 00:00:00 Management Lorrie R Y HEALTH 350.1.13.10 ity [place] [id number] [facility] [address] [place] 2020-08-30 2020-08-30 Case Sergo, [facility] 1.2.859.703 [id number] Univers 00:00:00 00:00:00 Management Cintia Y HEALTH 350.1.13.10 ity of [place] [id number] [place] [address] [place] 2020-08-19 2020-08-19 Case Yazan Gomez, [facility] 1.2.840.114 [id number] Univers 00:00:00 00:00:00 Management Lorrie R Y HEALTH 350.1.13.10 ity [place] [id number] [address] 2020-08-12 2020-08-12 Outpatient R KHOI, [facility] [id number] Univers 11:00:00 11:00:00 SHANTA itjace of [facility] 2020-08-10 2020-08-10 Telephone Nicci, [facility]ERSIT 1.2.840.114 [id number] Univers 00:00:00 00:00:00 Brandin L Y HEALTH 350.1.13.10 ity [place] [id number] [address] 2020-08-05 2020-08-05 Telephone Nicci, [facility] 1.2.840.114 [id number] Univers 00:00:00 00:00:00 Brandin L Y HEALTH 350.1.13.10 ity [place] [id number] [address] 2020-08-04 2020-08-04 Telephone Gloriasummery, [facility] 1.2.840.114 [id number] Univers 00:00:00 00:00:00 Brandin L Y HEALTH 350.1.13.10 ity [place] [id number] [address] 2020-08-03 2020-08-03 Telephone Nicci, [facility] 1.2.840.114 [id number] Univers 00:00:00 00:00:00 Brandin L Y HEALTH 350.1.13.10 ity [place] [id number] [address] 2020-07-29 2020-07-29 Telephone Gloriagregory, [facility]ERS[facility] 1.2.840.114 [id number] Univers 00:00:00 00:00:00 Brandin L Y HEALTH 350.1.13.10 ity [place] [id number] [address] 2020-07-27 2020-07-27 Rhett Aguilar, [facility] 1.2.782.765 [id number] Univers 00:00:00 00:00:00 Management Awilda L Y HEALTH 350.1.13.10 ity [place] [id number] [address] 2020-07-27 2020-07-27 Case Nicci, [facility] 1.2.007.358 [id number] Univers 00:00:00 00:00:00 Management Brandin L Y HEALTH 350.1.13.10 ity [place] [id number] [address] 2020-07-05 2020-07-05 Telephone Lorenzo [facility] 1.2.840.114 [id number] Univers 00:00:00 00:00:00 Necphilliple Y HEALTH 350.1.13.10 ity of [place] [id number] [address] 2020-06-30 2020-06-30 Telephone Nicci [facility] 1.2.840.114 [id number] Univers 00:00:00 00:00:00 Brandin L Y HEALTH 350.1.13.10 ity [place] [id number] [address] 2020-06-15 2020-06-15 Case Porfiriojace [facility] 1.2.844.413 [id number] Univers 00:00:00 00:00:00 Management Brandin L Y HEALTH 350.1.13.10 ity [place] [id number] [address] 2020-06-14 2020-06-14 Case Lorenzo [facility] 1.2.840.114 [id number] Univers 00:00:00 00:00:00 Management Necphilliple Y HEALTH 350.1.13.10 ity [place] [id number] [address] 2020-06-02 2020-06-[address] [facility] 1.2.840.114 [id number] Univers 11:20:27 11:36:46 Visit Mery Walton Y HEALTH 350.1.13.10 ity [place] [id number] [address] 2020-06-02 2020-06-02 Office KERI WaltonIT 1.2.840.114 [id number] Univers 10:08:42 11:15:59 Visit Mery Sweet HEALTH 350.1.13.10 i ty [place] [id number] [address] 2020-06-02 2020-06-02 Outpatient R JEN, [facility] [id number] Univers 10:00:00 10:00:00 MERY ity [facility] 2020-06-02 2020-06-02 Case Nicci [facility] 1.2.070.397 [id number] Univers 00:00:00 00:00:00 Management Brandin L Y HEALTH 350.1.13.10 ity [place] [id number] [address] 2020-06-02 2020-06-02 Case Jeff [facility] 1.2.663.903 [id number] Univers 00:00:00 00:00:00 Management Awilda L Y HEALTH 350.1.13.10 ity [place] [id number] [address] 2020-05-31 2020-05-31 Case Jeff [facility] 1.2.198.992 [id number] Univers 00:00:00 00:00:00 Management Awilda L Y HEALTH 350.1.13.10 ity [place] [id number] [address] 2020-05-31 2020-05-31 Case Jeff [facility]ERS[facility] 1.2.107.658 [id number] Univers 00:00:00 00:00:00 Management Awilda L Y HEALTH 350.1.13.10 ity [place] [id number] [address] 2020-05-30 2020-05-30 Telephone Yazan Gomez, [facility] 1.2.840.114 [id number] Univers 00:00:00 00:00:00 Lorrie R Y HEALTH 350.1.13.10 ity of [place] [id number] [place] [address] [place] 2020-05-25 2020-05-25 Rhett Johnson, [facility] 1.2.840.114 [id number] Univers 00:00:00 00:00:00 Management Lorrie L Y HEALTH 350.1.13.10 ity [place] [id number] [address] 2020-05-25 2020-05-25 Rhett Aguilar, [facility]ERS[facility] [id number] Univers 00:00:00 00:00:00 Management Awilda L Y HEALTH 350.1.13.10 ity [place] [id number] [address] 2020-05-17 2020-05-17 Orders Doctor KIRSTEN 1.2.840.114 [id number] Univers 00:00:00 00:00:00 Only Unassigned, RICK 350.1.13.10 ity of [place] [facility] 4.2.7.2.686 [place]ed [place] [id number] [facility] [address] [place] 2020-05-12 2020-05-12 Telephone KERI Grajeda 1.2.840.114 [id number] Univers 00:00:00 00:00:00 Brandin L Y HEALTH 350.1.13.10 ity [place] [id number] [facility] [address] [place] 2020-05-04 2020-05-04 Nurse Visit, [facility] Dermatology Nurse PHILLIP RSIT 1.2.840.114 [id number] Univers 13:03:58 13:36:23 Visit Darrel Leon Y HEALTH 350.1.13.10 ity of [place] [id number] [facility] [address] [place] 2020-05-04 2020-05-04 Office KERI Leon 1.2.689.484 [id number] Univers 13:15:00 13:30:00 Visit Darrel R Y HEALTH 350.1.13.10 ity [place] [id number] [address] 2020-05-04 2020-05-04 Outpatient R ANDRE, [facility] [id number] Univers 13:15:00 13:15:00 [facility] 2020-05-04 Case Nicci [facility] 1.2.459.876 [id number] Univers 00:00:00 00:00:00 Management Brandin L Y HEALTH 350.1.13.10 ity [place] [id number] [address] 2020-05-04 2020-05-04 Telephone KERI GrajedaIT 1.2.840.114 [id number] Univers 00:00:00 00:00:00 Brandin L Y HEALTH 350.1.13.10 ity [place] [id number] [address] 2020-04-27 2020-04-27 Nurse Visit, [facility] Id Nurse UN[facility]ERSIT 1.2. 840.114 [id number] Univers 10:13:52 10:28:52 Visit Mery Walton Jace HEALTH 350.1.13.10 ity of [place] [id number] [address] 2020-04-27 2020-04-27 Outpatient R [facility] [id number] Univers 10:00:00 10:00:00 ity [facility] 2020-04-21 2020-04-21 Office Jen [facility] 1.2.840.114 [id number] Univers 10:17:59 11:36:50 Visit Mery Sweet HEALTH 350.1.13.10 i ty of [place] [id number] [address] 2020-04-21 2020-04-21 [facility] [id number] Univers 10:00:00 10:00:00 MERY [facility] 2020-04-21 2020-04-21 Case Yazan Gomez, [facility] 1.2.840.114 [id number] Univers 00:00:00 00:00:00 Management Lorrie R Y HEALTH 350.1.13.10 ity [place] [id number] [address] 2020-04-21 2020-04-21 Case Jeff, [facility] 1.2.603.804 [id number] Univers 00:00:00 00:00:00 Management Awilda L Y HEALTH 350.1.13.10 ity [place] [id number] [address] 2020-04-21 2020-04-21 Case Nicci, [facility] 1.2.333.357 [id number] Univers 00:00:00 00:00:00 Management Brandin L Y HEALTH 350.1.13.10 ity of [place] [id number] [address] 2020-04-20 2020-04-20 Telephone Yazan Gomez, [facility] 1.2.840.114 [id number] Univers 00:00:00 00:00:00 Lorrie R Y HEALTH 350.1.13.10 ity [place] [id number] [address] 2020-04-20 2020-04-20 Case Nicci, [facility] 1.2.446.789 [id number] Univers 00:00:00 00:00:00 Management Brandin L Y HEALTH 350.1.13.10 ity of [place] [id number] [address] 2020-04-19 2020-04-19 Case Alex, [facility] 1.2.840.114 [id number] Univers 00:00:00 00:00:00 Management Lorrie L Y HEALTH 350.1.13.10 ity of [place] [id number] [address] 2020-04-19 2020-04-19 Transition Ginna Gillespie 1.2.840.114 [id number] Univers 00:00:00 00:00:00 of Care Elba Willis 350.1.13.10 ity of [place] [id number] [facility] [address] 2020-04-19 2020-04-19 Telephone KIRSTEN Perez 1.2.157.595 [id number] Univers 00:00:00 00:00:00 Bepili RICK 350.1.13.10 it y of [facility] 4.2.7.2.686 [place] [id number] [facility] [address] 2020-04-18 2020-04-18 Case Jeff, [facility] 1.2.575.776 [id number] Univers 00:00:00 00:00:00 Management Awilda L Y HEALTH 350.1.13.10 ity of [place] [id number] [place] [address] [place] 2020-04-17 2020-04-17 Telephone Chris [facility] 1.2.840.114 [id number] Univers 00:00:00 00:00:00 Beilin Y HEALTH 350.1.13.10 i ty of [place] [id number] [place] [address] [place] 2020-04-15 2020-04-15 Telephone Trevon [facility] 1.2.840.114 [id number] Univers 00:00:00 00:00:00 Narciso Y HEALTH 350.1.13.10 i ty [place] [id number] [address] Results This patient has no known results.
[2022-10-03] MEDS ORDERED: LIDOCAINE 2% MPF 5 ML VIAL ONE (23:24)
[2022-10-03] MEDS ORDERED: BUPIVACAINE 0.5% PF 10 ML VIAL ONE (23:24)
--- NOTE | 2022-10-04 00:03 | EDPHYS ---
Physician Documentation [facility] Name: Barry Mercedes Age: 32 yrs Sex: Male : 1990 Arrival Date: 10/03/2022 Time: 21:40 Bed DIS1 Private MD: ED Physician Carlos Toro HPI: 10/03 23:00 This 32 yrs old Male presents to ER via Ambulatory with complaints of Finger cp Injury. 23:00 The patient or guardian reports pain, swelling, tenderness. The complaints affect the cp distal phalanx of left thumb. 23:00 Context: resulted from an unknown cause. Associated signs and symptoms: The patient has cp no apparent associated signs or symptoms. Historical: - Allergies: 21:52 No Known Allergies; mb9 - Home Meds: 21:52 Biktarvy Oral [Active]; Wellbutrin SR Oral [Active]; mb9 - PMHx: 21:52 depressive disorder; HIV positive; mb9 - PSHx: 21:52 None; mb9 - Immunization history:: Adult Immunizations up to date. - Social history:: Smoking status: Patient reports the use of cigarette tobacco products, denies chronic smoking, but will smoke occasionally. ROS: 23:05 Constitutional: Negative for body aches, chills, fever, poor PO intake. cp 23:05 Respiratory: Negative for cough, shortness of breath, wheezing. 23:05 Abdomen/GI: Negative for abdominal pain, nausea, vomiting, and diarrhea. 23:05 MS/extremity: Positive for erythema, pain, swelling, tenderness, of the distal phalanx left thumb, Negative for decreased range of motion, deformity, paresthesias. 23:05 Neuro: Negative for numbness, tingling, weakness. 23:05 All other systems are negative. Exam: 23:10 Constitutional: The patient appears in no acute distress, alert, awake, non-toxic, well cp developed, well nourished, uncomfortable. 23:10 Head/Face: Normocephalic, atraumatic. cp 23:10 Chest/axilla: Inspection: normal. 23:10 Cardiovascular: Rate: normal. 23:10 Respiratory: the patient does not display signs of respiratory distress, Respirations: normal, no use of accessory muscles, no retractions, labored breathing, is not present. 23:10 Musculoskeletal/extremity: mild swelling, erythema and tenderness along radial side of nail of left thumb, small abscess noted. Vital Signs: 21:49 BP 112 / 93; Pulse 94; Resp 18; Temp 98.5(O); Pulse Ox 100% on R/A; Weight 113.4 kg; mb9 Height 5 ft. 8 in. ; Pain 4/10; 10/04 00:18 Pulse 82; Temp 98; Pulse Ox 100% on R/A; cg 10/03 21:49 Body Mass Index 38.01 (113.40 kg, 172.72 cm) 9 10/03 21:49 Pain Scale: Adult 9 Procedures: 00:10 I \T\ D: Incision and drainage was performed for an abscess of the radial side of left cp thumbnail Prepped with Betadine, Anesthetized with digital block performed with 8 ccs 1% lidocaine w/o epi and 0.5% marcaine. Incised with 18 gauge needle. Drained small amount purulent fluid. Dressing: sterile 4x4 gauze, the patient tolerated the procedure well. MDM: 10/03 21:56 Patient medically screened. cp 10/04 00:00 Differential diagnosis: abscess, cellulitis. cp 00:03 Data reviewed: vital signs. cp 00:03 Test considered but Not performed: X-ray: left thumb. Counseling: I had a detailed cp discussion with the patient and/or guardian regarding: the historical points, exam findings, and any diagnostic results supporting the discharge/admit diagnosis, to return to the emergency department if symptoms worsen or persist or if there are any questions or concerns that arise at home. Response to treatment: the patient's symptoms have markedly improved after treatment, and as a result, I will discharge patient. 10/03 23:12 Order name: I\T\D Setup; Complete Time: 23:21 cp Administered Medications: 10/03 23:31 Not Given (Physician Discretion): Lidocaine Infiltration (2 %) 5 ml 5 ml Infiltration cp once; to bedside 23:53 Drug: Bupivacaine Infiltration (0.5 %) 5 ml Volume: 10 ml; Route: Infiltration; [facility] 23:53 Drug: Lidocaine Infiltration (1 %) 5 ml Volume: 5 ml; Route: Infiltration; [facility] 10/04 00:17 Drug: Trimethoprim-Sulfamethoxazole PO (160 mg-800 mg (DS) 1 tablet Route: PO; cg Disposition Summary: 10/04/22 00:03 Discharge Ordered Location: Home cp Problem: new cp Symptoms: have improved cp Condition: Stable cp Diagnosis - Cutaneous abscess of left upper limb - left thumb cp Followup: cp - With: Valentino Logan MD - When: 48 Hours - Reason: Worsening of condition Discharge Instructions: - Discharge Summary Sheet cp - Incision and Drainage cp - Paronychia cp - Form - Excuse from Work, School, or Physical Activity cp Forms: - Work release form kl - Medication Reconciliation Form cp - Thank You Letter cp - Antibiotic Education cp - Prescription Opioid Use cp Prescriptions: - Ibuprofen 800 mg Oral Tablet - take 1 tablet by ORAL route every 8 hours As needed take with food; 30 tablet; cp Refills: 0, Product Selection Permitted - Bactrim DS 800-160 mg Oral Tablet - take 1 tablet by ORAL route every 12 hours for 10 days; 20 tablet; Refills: 0, cp Product Selection Permitted Addendum: 10/05/2022 01:42 Co-signature as Attending Physician, Carlos Toro MD I agree with the assessment and k dr plan of care. Signatures: Carlos Toro MD MD [facility] Yomi Valdes PA PA cp Lili Gamble, RN RN Aliya Cowan RN RN mb9
--- NOTE | 2022-10-04 00:03 | ER ---
Nurse's Notes [facility] Name: Barry Mercedes Age: 32 yrs Sex: Male : 1990 Arrival Date: 10/03/2022 Time: 21:40 Bed DIS1 Private MD: Diagnosis: Cutaneous abscess of left upper limb-left thumb Presentation: 10/03 21:49 Chief complaint: Patient states: "I always hit my finger nails at the times. I'm not mb9 sure if it's from that. But it started in the bottom corner of my left pinky for the past 3-4 days. I tried to lac it myself but now it's painful, pale, and swollen. A lot of pus came out and blood. It was yellowish pus". Coronavirus screen: Vaccine status: Patient reports receiving the 2nd dose of the covid vaccine. Ebola Screen: No symptoms or risks identified at this time. Initial Sepsis Screen: Does the patient meet any 2 criteria? No. Patient's initial sepsis screen is negative. Does the patient have a suspected source of infection? No. Patient's initial sepsis screen is negative. Risk Assessment: Do you want to hurt yourself or someone else? Patient reports no desire to harm self or others. Onset of symptoms was October 03, 2022. 21:49 Method Of Arrival: Ambulatory 9 21:49 Acuity: PETE 4 mb9 Triage Assessment: 21:53 General: Appears in no apparent distress. General: Behavior is calm, cooperative, mb9 appropriate for age. Pain: Complains of pain in left thumb Pain does not radiate. Pain currently is 4 out of 10 on a pain scale. Quality of pain is described as "feels tight and throbbing" Pain began 2-3 days ago. Neuro: Level of Consciousness is awake, alert, obeys commands, Oriented to person, place, time, situation. Respiratory: Airway is patent Respiratory effort is even, unlabored, Respiratory pattern is regular, symmetrical. GI: No signs and/or symptoms were reported involving the gastrointestinal system. : No signs and/or symptoms were reported regarding the genitourinary system. Derm: Skin is pink, warm \\T\\ dry. Musculoskeletal: Swelling present in left thumb. Historical: - Allergies: 21:52 No Known Allergies; mb9 - Home Meds: 21:52 Biktarvy Oral [Active]; Wellbutrin SR Oral [Active]; mb9 - PMHx: 21:52 depressive disorder; HIV positive; mb9 - PSHx: 21:52 None; mb9 - Immunization history:: Adult Immunizations up to date. - Social history:: Smoking status: Patient reports the use of cigarette tobacco products, denies chronic smoking, but will smoke occasionally. Screenin/04 00:[address] [facility] ED Fall Risk Assessment (Adult) History of falling in the last 3 months, cg including since admission No falls in past 3 months (0 pts) Confusion or Disorientation No (0 pts) Intoxicated or Sedated No (0 pts) Impaired Gait No (0 pts) Mobility Assist Device Used No (0 pt) Altered Elimination No (0 pt) Score/Fall Risk Level 0 - 2 = Low Risk Oriented to surroundings, Maintained a safe environment. Abuse screen: Denies threats or abuse. Nutritional screening: No deficits noted. Tuberculosis screening: No symptoms or risk factors identified. Assessment: 10/03 21:54 Reassessment: see triage assessment. mb9 23:26 Reassessment: No changes from previously documented assessment. Patient and/or family mb9 updated on plan of care and expected duration. Pain level reassessed. Patient is alert, oriented x 3, equal unlabored respirations, skin warm/dry/pink. General:. General: Appears in no apparent distress. 10/04 00:17 Reassessment: Patient appears in no apparent distress at this time. Patient denies pain cg at this time. Patient states feeling better. Patient states symptoms have improved. Vital Signs: 10/03 21:49 BP 112 / 93; Pulse 94; Resp 18; Temp 98.5(O); Pulse Ox 100% on R/A; Weight 113.4 kg; mb9 Height 5 ft. 8 in. ; Pain 4/10; 10/04 00:18 Pulse 82; Temp 98; Pulse Ox 100% on R/A; cg 10/03 21:49 Body Mass Index 38.01 (113.40 kg, 172.72 cm) mb9 10/03 21:49 Pain Scale: Adult 9 ED Course: 10/03 21:44 Patient arrived in ED. es 21:52 Triage completed. mb9 21:52 Arm band placed on. mb9 21:54 Bed in low position. Call light in reach. Side rails up X 1. Client placed on mb9 continuous cardiac and pulse oximetry monitoring. NIBP monitoring applied. 21:56 Aliya Sal, JOSE is Primary Nurse. mb9 21:56 Yomi Valdes PA is PHCP. cp 21:56 Carlos Toro MD is Attending Physician. cp 23:27 No provider procedures requiring assistance completed. Patient did not have IV access mb9 during this emergency room visit. 10/04 00:02 Valentino Logan MD is Referral Physician. cp Administered Medications: 10/03 23:31 Not Given (Physician Discretion): Lidocaine Infiltration (2 %) 5 ml 5 ml Infiltration cp once; to bedside 23:53 Drug: Bupivacaine Infiltration (0.5 %) 5 ml Volume: 10 ml; Route: Infiltration; mb9 23:53 Drug: Lidocaine Infiltration (1 %) 5 ml Volume: 5 ml; Route: Infiltration; mb9 10/04 00:17 Drug: Trimethoprim-Sulfamethoxazole PO (160 mg-800 mg (DS) 1 tablet Route: PO; cg Medication: 10/03 21:54 VIS not applicable for this client. mb9 Outcome: 10/04 00:03 Discharge ordered by MD. cp 00:18 Discharged to home ambulatory. cg 00:18 Condition: improved 00:18 Discharge instructions given to patient, Instructed on discharge instructions, follow up and referral plans. medication usage, wound care, Demonstrated understanding of instructions, follow-up care, medications, wound care, Prescriptions given X 2. 00:18 Patient left the ED. cg Signatures: Ana Mendez Corey, PA PA cp Lili Gamble RN RN cg Aliya Sal, JOSE GARCIA mb9 Corrections: (The following items were deleted from the chart) 10/03 21:54 21:49 Chief complaint: Patient states: "I always hit my finger nails at the times. I'm radha9 not sure if it's from that. But it started in the bottom corner of my left pinky for the past 3-4 days. I tried to lac it myself but now it's painful, pale, and swollen" mb9 23:27 21:49 Acuity: PETE 3 mb9 mb9
[2022-10-04] MEDS ORDERED: SMZ./TMP. 800/160 MG TABLET ONE (00:17)
[2022-10-04 00:30] VITALS: BP 112/93; O2SAT 100
[2022-10-04 00:32] VITALS: TEMP 98
== END 2022-10-04 00:18 | disposition home or self-care (01) ==
LOC: ER 21:40
PROC: 0H9GXZZ Drainage of Left Hand Skin, External Approach (ICD-10-PCS; principal; 2022-10-04)
DX: L02.512 Cutaneous abscess of left hand (principal)
CPT/HCPCS: 99283; 10060; J2001